=== PATIENT | male | born 1945 | race Caucasian/White ===

== ENCOUNTER → 2016-09-12 | Outpatient (CLI) | payer OTHER ==
[~2016-09-12] VITALS: Ht 193 cm; Wt 135.0 kg
[2016-09-12] VITALS (12 sets, daily range): BP systolic 92–118; BP diastolic 46–70; PULSE 61–69; O2SAT 93–97; Ht 193 cm; Wt 135.0 kg
[~2016-09-12] MED LIST: ACET-1311 PO; ALBU18002 INH; ASPCH81X PO; BENZOCAIN/TETRACA/BUTAM SPRAY 200 APPLN/20 GM SPRY ONE; CANNULA ONE; CIPR1TAB11 PO; CYM/30 PO; DAPT500I IV; DIPH25CA65 PO; FURO-85 PO; INSU1INJ2 SC; INSU3INJ3 SC; INSUINJ12 SC; LEVA1.255 NEB; LEVAAER2 INH; LVMI SQ; MAGN400T6 PO; MEPERIDINE HCL 50 MG/ML CARP ONE; METO50TA7 PO; MIDAZOLAM HCL 1 MG/ML 2ML VIAL ONE; NTRGSL/4 UT; PANT40TA PO; POLY335019 PO; POTA10TA PO; PRAV80TA2 PO; TAPE1TAB10 PO; TAPE50TA5 PO; VANC500I IV; WARF3TAB PO; WARF6TAB PO
--- NOTE | 2016-09-12 09:02 | History & Physical Bridge Note ---
H&P Re-Evaluation Bridge Note: I have examined the patient, reviewed the History & Physical and in the interval since the performance of the History & Physical I have noted the following changes of clinical significance: No changes noted
--- NOTE | 2016-09-12 09:03 | Procedure Note ---
Pre-Mod Sedation Assessment General Date of Moderate Sedation: Sep 12, 2016. Vital Signs: Vital Signs Past 12 Hours Date Time Temp Pulse Resp B/P Pulse Ox O2 Delivery O2 Flow Rate FiO2 09/12/16 07:27 67 16 105/58 95 Room Air Pre-Sedation Airway Assessment Oral Cavity: Dentures Able to Visualize Vocal Cords: Yes Short Thick Neck: Yes Hx of Sleep Apnea: No Smoking Status: Light Tobacco Smoker Mallampati Classification: Class II ASA Classification: Class II Procedure Planning Contraindications-for Mod Sed: None Yes Notes The planned sedation has been discussed with the patient and consent obtained. I have identified the patient, determined the appropriateness of sedation and have assessed the patient immediately prior to the procedure. All medicine(s) and interventions are by my order.
--- NOTE | 2016-09-12 09:07 | Discharge Instructions ---
Discharge Instructions Procedure Procedure Date: Sep 12, 2016. Reason for Visit: *Dr Casillas To Do*No Anesthesia,Aortic Valve Repl. Discharge Discharge Date: Sep 12, 2016. Discharge Diagnosis: Successful SADE Last Recorded Wt (Kilograms): 135.000 Anesthesia Post Anesthesia Instructions: If you have had General Anesthesia or IV Sedation: * Do not drive today. * Resume driving when surgeon permits. * Do not make important decisions or sign legal documents today. * Call surgeon for: 1. Temperature elevations greater than 101 degrees F. 2. Uncontrollable pain. 3. Excessive bleeding. 4. Persistent nausea and vomiting. 5. Medication intolerance (nausea, vomiting or rash). * For nausea and vomiting use only clear liquids such as: tea, soda, bouillon until nausea subsides, then gradually increase diet as tolerated. * If you have any concerns or questions, call your surgeon's office. If physician is unavailable and it is an emergency, call 911 or go to the nearest emergency room. Instructions Activity Recommendations: limitations as noted below Recommended Home Diet: resume previous diet Allergies: Coded Allergies: Clarithromycin (Verified Allergy, Severe, SHORTNESS OF BREATH, 07/11/16) Rash Hydrocodone (Verified Allergy, Severe, HIVES, RESP DISTRESS, 07/11/16) Macrolides (Verified Allergy, Severe, HIVES, RESP DISTRESS, 07/11/16) Penicillins (Verified Allergy, Severe, HIVES, RESP DISTRESS, 07/11/16) Tolerated Ceftriaxone Shellfish Allergy (Verified Allergy, Severe, HIVES, RESP DISTRESS, ) Tuberculin Purified Protein Derivat (Verified Allergy, Severe, HIVES, RESP DISTRESS, 07/11/16) Iodine (Verified Allergy, Unknown, HIVES, RESP DISTRESS, 07/11/16) Losartan (Verified Allergy, Unknown, HIVES, RESP DISTRESS, 07/11/16) Iodinated Diagnostic Agents (Verified Adverse Reaction, Severe, SHORTNESS OF BREATH, 07/11/16) X-RAY DYE Provider Instructions ACTIVITY RECOMMENDATIONS: Resume activities as tolerated with no limitations unless specified. __ No lifting over __ pounds for 24 hours. __ Do not engage in vigorous exercise, sexual activity, or sports for 24 hours. __ Do not drive or operate any motorized equipment for 24 hours. __ You may return to work/school tomorrow. __ Nothing to eat or drink until gag reflex returns. __ No HOT or WARM liquids for _4_ hours. __ Avoid "scratchy" foods such as potato chips or pretzels for 24 hours following procedure. SPECIAL CARE: If you experience coughing up or vomiting of blood, contact _Dr Casillas___ Follow Up Follow-up with: Dr Casillas as scheduled Courtney Cassel Recommendations: Call your doctor if: * Temperature above 101 degrees * Pain not relieved by pain medicine ordered * There is increased drainage or redness from any incision * You have any unanswered questions or concerns. Your Doctors Instructions noted above were prepared by provider Karson Casillas. Patient Signature Section: Patient Instructions Signature Page Michele Sandra Patient (or Guardian) Signature/Date: I have read and understand the instructions given to me by my caregivers. Caregiver/RN/Doctor Signature/Date: The above-named patient and/or guardian has received patient instructions on this date. + Original Patient Signature Page (only) stays with chart. Please make copy for patient.
--- NOTE | 2016-09-21 15:46 | TEE ---
*NOTICE TO RECEIVING [employer]Y This information is strictly Confidential and protected under [place] law. [place] law prohibits you from making any further disclosure of this information unless further disclosure is expressly permitted by the written consent of the person to whom it pertains or is authorized by law. A general authorization for the release of medical or other information is not sufficient for this purpose. Hospital accepts no responsibility if the information is made available to any other person, INCLUDING THE PATIENT. Interpretation Summary * Name: POOJA ROSS Study Date: 09/12/2016 08:43 AM BP: 105/58 mmHg * Patient Location: [facility] HR: 66 * : 1945 (M/d/yyyy) Gender: Male Height: 76 in * Age: 71 yrs Ethnicity: [place] Weight: 302 lb * Ordering Physician: Karson Casillas MD, [facility] * Performed By: Hallie Yu [facility] * * Reason For Study: Eval of Mitral Valve * BSA: 2.6 m2 * -- Conclusions -- * The left ventricle is normal in size. * There is mild concentric left ventricular hypertrophy. * There is mild global hypokinesis of the left ventricle. * Ejection Fraction = 45-50%. * The left atrium is mildly dilated. * There is a bioprosthetic aortic valve. * The gradient is normal for this prosthetic aortic valve. * Bioprosthetic leaflets are thin and move normally. * There is no aortic valvular vegetation. * There is a bioprosthetic mitral valve. * Bioprosthesis leaflets are thin and move normally. * There are no vegetations on this prosthetic mitral valve. * There is no mitral valve stenosis. * There is no mitral regurgitation noted. Procedure Details * SADE probe #3 was used during the procedure. Time Out: 833 Probe In: 841 Probe Out: 900 25 mg of Demerol was administered. * The study was performed in Cardiopulmonary Department. * Time out was conducted by the physician, nurse, and nuclear medicine pet ct technologist with positive identification of patient and procedure. * Informed consent for Transesophageal Echocardiogram was obtained prior to the procedure. * An intravenous line was placed. A topical anesthetic agent was used for oropharangeal anesthesia. A bite block was inserted. * Midazolam 4 mg administered for sedation. * The posterior oropharynx was anesthetized using a topical anesthetic spray. A bite guard was inserted. * The transesophageal probe was passed without difficulty. * The usual views were obtained; basal, mid-esophageal, transgastric and aortic views. * The patient tolerated the procedure well without evidence of orophangeal or esophageal trauma. * A 2D transesophageal echocardiogram with spectral and color flow Doppler was performed. * A 2D transesophageal echocardiogram with Doppler and color flow Doppler was performed. Left Ventricle * The left ventricle is normal in size. * There is mild concentric left ventricular hypertrophy. * Ejection Fraction = 45-50%. * There is mild global hypokinesis of the left ventricle. Right Ventricle * The right ventricular cavity size is normal (basal dimension <4.2 cm in right ventricular apical 4-chamber view). * The right ventricular systolic function is normal. Atria * The left atrium is mildly dilated. * No thrombus is detected in the left atrial appendage. * Right atrial size is normal. Mitral Valve * There is no mitral valve stenosis. * There is no mitral regurgitation noted. * There is a bioprosthetic mitral valve. * There are no vegetations on this prosthetic mitral valve. * Bioprosthesis leaflets are thin and move normally. Aortic Valve * There is no aortic valvular vegetation. * There is a bioprosthetic aortic valve. * Bioprosthetic leaflets are thin and move normally. * The gradient is normal for this prosthetic aortic valve. Great Vessels * The aortic root is normal size. * Mild atherosclerotic plaque(s) in the descending aorta. Right Ventricle * The right ventricular wall motion is normal.
== END | disposition home or self-care (01) ==
LOC: C.CPL 06:31
PROVIDERS: ATTEND Internal Medicine Cardiovascular Disease
DX: Z95.2 Presence of prosthetic heart valve (principal); Z95.4 Presence of other heart-valve replacement; R93.1 Abnormal findings on diagnostic imaging of heart and coronary circulation

== ENCOUNTER 2016-11-01 12:51 | Day surgery (SDC) | payer OTHER ==
[~2016-11-01] VITALS: Ht 193 cm; Wt 131.8 kg
[~2016-11-01 12:51] MED LIST changes: -ACET-1311 PO; -ALBU18002 INH; -BENZOCAIN/TETRACA/BUTAM SPRAY 200 APPLN/20 GM SPRY ONE; -CANNULA ONE; -CIPR1TAB11 PO; -DAPT500I IV; +DAPTOmycin IV 550 MG in SODIUM CHLORIDE 0.9% 50ML 50 ML IV SCH; -INSU3INJ3 SC; -LEVAAER2 INH; -LVMI SQ; -MEPERIDINE HCL 50 MG/ML CARP ONE; -MIDAZOLAM HCL 1 MG/ML 2ML VIAL ONE; -VANC500I IV; -WARF3TAB PO
[2016-11-01 13:05] VITALS: BP 131/88; PULSE 71; TEMP 36.5; O2SAT 95; Ht 193 cm; Wt 131.8 kg
[2016-11-01] MEDS ORDERED: WARF3TAB PO (13:19)
--- NOTE | 2016-11-01 15:30 | DIAGNOSTIC IMAGING REPORT ---
SINGLE VIEW CHEST CLINICAL HISTORY: PICC placement. Atrial fibrillation. FINDINGS: 2 AP, portable, upright chest radiographs are compared to study dated 10/28/2014. The examination is degraded by portable technique and patient rotation. A right PICC line has been placed. The tip of the catheter projects over the SVC. The patient is status post midline sternotomy. The heart is enlarged and there is atherosclerotic calcification of the thoracic aorta. The pulmonary vasculature is noncongested. Chronic interstitial thickening is unchanged. No airspace consolidation, large pleural effusion, or pneumothorax is seen. The skeletal structures are osteopenic. The bony thorax is grossly intact. IMPRESSION: 1. A right PICC line has been placed. The tip of the catheter projects over the SVC. 2. Cardiomegaly without radiographic evidence of congestive failure. 3. No airspace consolidation or large pleural effusion is identified. Electronically signed by: Livan Ballard M.D. 11/01/2016 3:28 PM Dictated Date/Time: 11/01/2016 3:27 PM
[2016-11-01 16:39] VITALS: BP 105/71; PULSE 71; TEMP 36.8; O2SAT 95
[2016-11-06] MEDS ORDERED: DAPT500I IV (13:56)
[2016-11-06] MEDS ORDERED: ALBU18002 INH (17:14)
[2016-11-06] MEDS ORDERED: PRAV80TA2 PO (17:15)
[2016-11-13] MEDS ORDERED: VANC500I IV (14:41)
[2016-11-13] MEDS ORDERED: INSU3INJ3 SC (17:08)
[2016-11-21] MEDS ORDERED: LVMI SQ (17:25)
[2016-11-21] MEDS ORDERED: ACET-1311 PO (17:32)
== END 2017-05-31 08:32 | disposition home or self-care (01) ==
LOC: C.MTU 12:51
PROVIDERS: ATTEND Internal Medicine Infectious Disease
DX: M86.9 Osteomyelitis, unspecified (principal)

== ENCOUNTER 2016-11-06 14:23 | Inpatient (IN) | payer OTHER ==
[~2016-11-06] VITALS: Ht 193 cm; Wt 133.6 kg
[~2016-11-06 14:23] MED LIST changes: +DAPT500I IV; -DAPTOmycin IV 550 MG in SODIUM CHLORIDE 0.9% 50ML 50 ML IV SCH; +WARF3TAB PO
[2016-11-06] MEDS ORDERED: ACETAMINOPHEN 325 MG TAB PO PRN (16:00)
[2016-11-06] MEDS ORDERED: ONDANSETRON INJ 2 MG/ML 2 ML VIAL IV PRN (16:00)
[2016-11-06 16:02] VITALS: BP 118/75; PULSE 78; O2SAT 94
[2016-11-06 16:44] LABS: BASO % 1.8 %; BASO ABS # 0.17 K/uL (0-0.2); EOS % 4.6 %; HEMATOCRIT 42.1 % (42-52); IG% 0.1 %; LYMPH % 37.5 %; LYMPH ABS # 3.56 K/uL (1.2-3.4); MEAN CELL VOLUME 91.9 fL (80-100); MEAN CORPUSCULAR HEMOGLOBIN 31.4 pg (25-34); MEAN PLATELET VOLUME 11.2 fL (7.4-10.4); MONO % 9.6 %; NEUT % 46.4 %; PLATELET COUNT 250 K/uL (130-400); RED BLOOD COUNT 4.58 M/uL (4.7-6.1)
[2016-11-06 16:46] LABS: COMPLETE YES; MEAN CORPUSCULAR HGB CONC 34.2 g/dl (32-36)
[2016-11-06 16:56] LABS: INR 3.1 (0.9-1.1); PARTIAL THROMBOPLASTIN RATIO 1.4; PROTHROMBIN TIME (PATIENT) 34.3 SECONDS (9.0-12.0)
[2016-11-06] MEDS ORDERED: DEXTROSE 50% 50 ML SYR IV PRN (17:00)
[2016-11-06] MEDS ORDERED: GLUCAGON FOR INJ 1 MG VIAL SQ PRN (17:00)
[2016-11-06] MEDS ORDERED: LEVALBUTEROL/IPRATROPIUM NEB INH PRN (17:00)
[2016-11-06] MEDS ORDERED: GLUCOSE 40% GEL 15 GM TUBE PO PRN (17:00)
[2016-11-06] MEDS ORDERED: GLUCOSE 10 TABS/TUBE PO PRN (17:00)
[2016-11-06] MEDS ORDERED: ALBU18002 INH (17:14)
[2016-11-06] MEDS ORDERED: PRAV80TA2 PO (17:15)
--- NOTE | 2016-11-06 17:15 | DIAGNOSTIC IMAGING REPORT ---
TWO VIEW CHEST CLINICAL HISTORY: Wheezing and dyspnea. FINDINGS: PA and lateral chest radiographs are compared to study dated 11/01/2016. A right PICC line is unchanged in position. The patient is status post midline sternotomy. The heart is enlarged and there is atherosclerotic calcification of the thoracic aorta. The pulmonary vasculature is noncongested. Chronic interstitial thickening is unchanged. Bibasilar airspace opacities are observed. No pleural effusion or pneumothorax is seen. The skeletal structures are osteopenic. The bony thorax is grossly intact. Degenerative change is seen throughout the thoracic spine. IMPRESSION: 1. Cardiomegaly without radiographic evidence of congestive failure. 2. There are bibasilar airspace opacities, likely representing atelectasis. Clinical correlation will be required. Electronically signed by: Livan Ballard M.D. 11/06/2016 5:13 PM Dictated Date/Time: 11/06/2016 5:12 PM
[2016-11-06] MEDS ORDERED: VANCOMYCIN CONSULT ACTIVE PRN (17:17)
[2016-11-06 17:24] LABS: BLOOD UREA NITROGEN 23 mg/dl (7-18); BUN/CREATININE RATIO 24.3 (10-20); CALCIUM 9.3 mg/dl (8.5-10.1); CARBON DIOXIDE 28 mmol/L (21-32); CHLORIDE 103 mmol/L (98-107); CREATININE 0.94 mg/dl (0.60-1.40); GLUCOSE 224 mg/dl (70-99); POTASSIUM 4.1 mmol/L (3.5-5.1); SODIUM 137 mmol/L (136-145)
[2016-11-06] MEDS ORDERED: VANCOMYCIN INJ 2,800 MG in SODIUM CHLORIDE 0.9% 500ML 500 ML IV STA (17:27)
[2016-11-06] MEDS ORDERED: IPRATROPIUM BROMIDE NEB SOLN 0.02% 2.5 ML VIAL INH PRN (17:30)
[2016-11-06] MEDS ORDERED: NITROGLYCERIN 0.4 MG SL PER TAB CHARGE UT PRN (17:30)
[2016-11-06] MEDS ORDERED: LEVALBUTEROL 0.63MG/3 ML NEB INH PRN (17:30)
[2016-11-06] MEDS: PATIENT'S HEIGHT AND/OR WEIGHT NEEDED SCH ×2 (17:30→18:00)
[2016-11-06] MEDS ORDERED: LEVOFLOXACIN / D5W 750 MG in PREMIXED IN D5W 150 ML IV SCH (18:00)
[2016-11-06] MEDS: METHYLPREDNISOLONE IV 40 MG in SYRINGE 0 ML IV SCH (18:49)
[2016-11-06 19:11] VITALS: BP 118/75; PULSE 78; TEMP 36.1; BMI 35.9
[2016-11-06 19:24] VITALS: PULSE 79; O2SAT 95
[2016-11-06] MEDS: IPRATROPIUM BROMIDE NEB SOLN 0.02% 2.5 ML VIAL INH SCH (19:24)
[2016-11-06] MEDS: LEVALBUTEROL 1.25MG/0.5ML NEB INH SCH (19:24)
[2016-11-06] MEDS: WARFARIN SOD 6 MG TAB PO SCH (20:14)
--- NOTE | 2016-11-06 20:34 | History and Physical ---
History & Physical Date & Time of Service: Nov 06, 2016 at 17:19 Chief Complaint: Osteomyelitis Of Right First Toe Primary Care Physician: Martha Cano M.D. History of Present Illness Source: patient, clinic records This is a 71 year old male with COPD, asthma, DM type 2, CAD, paroxysmal AF, h/ o endocarditis, history of aortic and mitral valve replacements, history of CVA , and other problems listed below who presents as a direct admission from Dr. Malhotra for right 1st toe osteomyelitis. Pt reports longstanding right great toe wound and is known to have osteomyelitis. Has had serosanguineous drainage. Has been following with wound care and ID. Wound culture 09/22/16 grew enterococcus faecalis. Pt has seen Dr. Ortega who plans to do 1st toe amputation. Pt had preoperative evaluation by Dr. Casillas who advised to proceed with surgery. Pt has appointment with PCP for preop eval which was not done yet. Pt was initially on oral abx then since last 11/01 has been on Daptomycin at home via PICC line. Pt reports since 11/01 has increased SOB, nausea, wheezing, generalized weakness, diffuse arthralgias. At baseline pt has EASTON but this is worse and occasionally occurs at rest. No significant improvement with home albuterol inhaler. He admits to cough with clear sputum for past 1-2 weeks. Has associated rhinorrhea and sweats. He reports occasional "twinges" in right chest since PICC line was placed. Has chronic occasional palpitations. PO intake is good. Has chronic rash which was evaluated by dermatology. Denies fever, chills, sore throat, abdominal pain, vomiting, diarrhea, constipation, dysuria, frequency, edema, weight gain. No sick contacts. Pt was seen by Dr. Malhotra at wound care clinic today and sent for direct admission for R 1st toe osteomyelitis with concern for possible daptomycin reaction. Last dose of daptomycin was this morning. Past Medical/Surgical History Medical Problems: (1) AAA (abdominal aortic aneurysm) Status: Chronic (2) Angina Status: Chronic (3) ARB intolerance Status: Chronic (4) Asthma, moderate Status: Chronic (5) Cerebrovascular disease, arteriosclerotic, post-stroke Status: Chronic (6) Chronic anticoagulation Status: Chronic (7) COPD, moderate Status: Chronic (8) Depression Status: Chronic (9) DM type 2 (diabetes mellitus, type 2) Status: Chronic (10) DVT (deep venous thrombosis) Status: Resolved (11) Dyslipidemia Status: Chronic (12) Heart disease Status: Chronic (13) History of endocarditis Status: Chronic (14) HTN (hypertension) Status: Chronic (15) LBBB (left bundle branch block) Status: Chronic (16) MA (myocardial infarction) Status: Chronic (17) Paroxysmal atrial fibrillation Status: Chronic (18) 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 Surgical Problems: (1) H/O angioplasty Permanent Comment: 1999 Angioplasty,single vessel [facility] Dr [place], [facility] Status: Chronic (2) H/O aortic valve replacement Permanent Comment: aortic valve replacement with prosthetic valve 06/15/2010 and 09/15/2014 Status: Chronic (3) H/O cervical spine surgery Status: Chronic (4) History of cataract surgery Status: Chronic (5) Hx of CABG Permanent Comment: 06/15/2010 CABG with 1 vein graft, [facility] Status: Chronic (6) S/P mitral valve replacement with bioprosthetic valve Permanent Comment: 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 Status: Chronic Family History FH: CAD (coronary artery disease) FATHER Social History Smoking Status: Current Every Day Smoker (1/2 ppd) Alcohol Use: none Marital Status: Housing status: lives with significant other Occupational Status: retired (retired nurse) Immunizations History of Influenza Vaccine: Yes Influenza Vaccine Date: Mar 16, 2011 History of Tetanus Vaccine?: Yes History of Pneumococcal: Unknown History of Hepatitis B Vaccine: YES - MANY YEARS AGO Multi-Drug Resistant Organisms History of MDRO: No Allergies Coded Allergies: Clarithromycin (Verified Allergy, Severe, SHORTNESS OF BREATH, 11/01/16) Rash Hydrocodone (Verified Allergy, Severe, HIVES, RESP DISTRESS, 11/01/16) Macrolides (Verified Allergy, Severe, HIVES, RESP DISTRESS, 11/01/16) Penicillins (Verified Allergy, Severe, HIVES, RESP DISTRESS, 11/01/16) Tolerated Ceftriaxone Shellfish Allergy (Verified Allergy, Severe, HIVES, RESP DISTRESS, 11/01/16 ) Tuberculin Purified Protein Derivat (Verified Allergy, Severe, HIVES, RESP DISTRESS, 11/01/16) Iodine (Verified Allergy, Unknown, HIVES, RESP DISTRESS, 11/01/16) Losartan (Verified Allergy, Unknown, HIVES, RESP DISTRESS, 11/01/16) Iodinated Diagnostic Agents (Verified Adverse Reaction, Severe, SHORTNESS OF BREATH, 11/01/16) X-RAY DYE Home Medications Scheduled Aspirin (Aspirin Chewable), 162 MG PO DAILY Daptomycin (Daptomycin), 550 MG IV DAILY Duloxetine HCl (Cymbalta), 30 MG PO DAILY Insulin Detemir (Levemir), 15 UNITS SC QPM Magnesium Oxide (Mag-Ox), 400 MG PO QAM Metoprolol Succ (Toprol Xl) (Toprol-Xl), 100 MG PO DAILY Pantoprazole (Protonix), 40 MG PO QAM Polyethylene Glycol 3350 (Miralax), 17 GM PO QAM Pravastatin Sodium (Pravastatin Sodium), 1 TAB PO HS Tapentadol Hcl (Nucynta Er), 100 MG PO BID Warfarin Sodium (Coumadin), 6 MG PO 6XWK Warfarin Sodium (Coumadin), 3 MG PO WK Scheduled PRN Albuterol Sulfate (Proair Respiclick), 2 PUFFS INH Q6 PRN for SOB/Wheezing Diphenhydramine Hcl (Benadryl Allergy), 25 MG PO HS PRN for Itching Furosemide (Lasix), 20 MG PO DAILY PRN for swelling Levalbuterol Hcl (Levalbuterol), 1.25 MG NEB Q6 PRN for SOB/Wheezing Nitroglycerin (Nitrostat), 0.4 MG UT UD PRN for Chest Pain Potassium Chloride (K-Tabs), 20 MEQ PO DAILY PRN for with Lasix Tapentadol Hcl (Nucynta), 50 MG PO Q8 PRN for Pain Review of Systems Ten point ROS performed with pertinent positives and negatives noted in HPI. Physical Exam Vital Signs Date Time Temp Pulse Resp B/P Pulse Ox O2 Delivery O2 Flow Rate FiO2 11/06/16 16:02 78 18 118/75 94 Room Air General Appearance: WD/WN, no apparent distress, + pertinent finding (very pleasant cooperative 71 year old male ) Head: normocephalic, atraumatic Eyes: normal inspection, PERRL, EOMI ENT: hearing grossly normal, pharynx normal, + pertinent finding (no sinus tenderness) Neck: supple, no JVD, trachea midline Respiratory/Chest: no respiratory distress, no accessory muscle use, + wheezing (moderate expiratory wheezing throughout) Cardiovascular: regular rate, rhythm, + pertinent finding (no murmur appreciated) Abdomen/GI: normal bowel sounds, non tender, soft Extremities/Musculoskelatal: no calf tenderness, normal capillary refill, no pedal edema Neurologic/Psych: alert, normal mood/affect, oriented x 3, + pertinent finding (strength 4/5 all extremities) Skin: + pertinent finding (right 1st toe ulceration with surrounding erythema of the toe. chronic round erythematous patches on extremities.) Diagnostics Laboratory Results Results Past 24 Hours Test 11/06/16 16:25 Range/Units White Blood Count 9.50 4.8-10.8 K/uL Red Blood Count 4.58 4.7-6.1 M/uL Hemoglobin 14.4 14.0-18.0 g/dL Hematocrit 42.1 42-52 % Mean Corpuscular Volume 91.9 80-100 fL Mean Corpuscular Hemoglobin 31.4 25-34 pg Mean Corpuscular Hemoglobin Concent 34.2 32-36 g/dl Platelet Count 250 130-400 K/uL Mean Platelet Volume 11.2 7.4-10.4 fL Neutrophils (%) (Auto) 46.4 % Lymphocytes (%) (Auto) 37.5 % Monocytes (%) (Auto) 9.6 % Eosinophils (%) (Auto) 4.6 % Basophils (%) (Auto) 1.8 % Neutrophils # (Auto) 4.41 1.4-6.5 K/uL Lymphocytes # (Auto) 3.56 1.2-3.4 K/uL Monocytes # (Auto) 0.91 0.11-0.59 K/uL Eosinophils # (Auto) 0.44 0-0.5 K/uL Basophils # (Auto) 0.17 0-0.2 K/uL RDW Standard Deviation 44.8 36.4-46.3 fL RDW Coefficient of Variation 13.4 11.5-14.5 % Immature Granulocyte % (Auto) 0.1 % Immature Granulocyte # (Auto) 0.01 0.00-0.02 K/uL Prothrombin Time 34.3 9.0-12.0 SECONDS Prothromb Time International Ratio 3.1 0.9-1.1 Activated Partial Thromboplast Time 36.6 21.0-31.0 SECONDS Partial Thromboplastin Ratio 1.4 Microbiology Results 11/06/16 Blood Culture, Received Pending 11/06/16 Blood Culture, Received Pending Diagnostic Radiology TWO VIEW CHEST CLINICAL HISTORY: Wheezing and dyspnea. FINDINGS: PA and lateral chest radiographs are compared to study dated 11/01/2016. A right PICC line is unchanged in position. The patient is status post midline sternotomy. The heart is enlarged and there is atherosclerotic calcification of the thoracic aorta. The pulmonary vasculature is noncongested. Chronic interstitial thickening is unchanged. Bibasilar airspace opacities are observed. No pleural effusion or pneumothorax is seen. The skeletal structures are osteopenic. The bony thorax is grossly intact. Degenerative change is seen throughout the thoracic spine. IMPRESSION: 1. Cardiomegaly without radiographic evidence of congestive failure. 2. There are bibasilar airspace opacities, likely representing atelectasis. Clinical correlation will be required. EKG NSR, LBBB- chronic, T wave inversions in I, II, aVL, aVF, V4-V6, no ST change. when compared to EKG in [facility] Jul 2016 V4-V5 inversions are new, otherwise appears similar. Impression Assessment and Plan COPD EXACERBATION Due to community acquired pneumonia Afebrile; no leukocytosis; saturating well on RA CXR- bibasilar opacities Check influenza PCR, sputum cx, blood cultures Will treat with Levaquin, IV Solu-Medrol, Xopenex-Atrovent nebs RIGHT 1ST TOE OSTEOMYELITIS/ DIABETIC ULCER Sent by Dr. Malhotra for direct admission Wound culture September 22 2016 grew enterococcus faecalis Seen by ortho Dr. Ortega- plan for amputation; has had preop evaluation by cardiology Dr. Casillas Has been on daptomycin via PICC line as outpatient -> ? reaction to daptomycin D/c daptomycin as per ID recommendation Start vancomycin Consult infectious disease Consult wound care nurse Surgery will be postponed until medically stable PAROXYSMAL ATRIAL FIBRILLATION Rate is controlled Continue metoprolol On Coumadin; INR 3.1 Continue Coumadin CAD Stable Continue aspirin, beta armen Resume statin which was held while on daptomycin HISTORY OF ENDOCARDITIS S/p emergent MVR and AVR September 2014 in [place] Echocardiogram done 08/22/2016 demonstrated moderate left hypertrophy, EF 50-55% . Normally functioning aortic and mitral valve bioprosthesis. There were concerns regarding possible mobile density of the atrial surface of the bioprosthetic mitral valve. Transesophageal echocardiogram revealed no vegetation or mass on 09/05/2016. DM TYPE 2 A1c 9.4 in 08/2016 Continue basal long acting insulin Novolog sliding scale DEPRESSION Continue Cymbalta CHRONIC NECK PAIN Continue Nucynta DVT PROPHYLAXIS On Coumadin CODE STATUS Full code per my discussion with the patient. Patient seen in collaboration with Dr. Hall. Please see her addendum. Level of Care Med/Surg Resuscitation Status FULL RESUSCITATION VTE Prophylaxis VTE Risk Assessment Done? Y/N: Yes Risk Level: Moderate Given or contraindicated: Warfarin (Coumadin) Note I have seen and examined the patient and discussed the case with the provider above. I agree with the assessment and plan. His chest pain is concerning but is very atypical and sporadic. He is describing a pinching that comes on 5 times a day along the R anterior chest for the last couple of days. Not made worse with exertion. No associated symptoms. He denies any limb swelling and blood clots (from PICC or elsewhere) are less likely with a therapeutic INR. He does have some wheezing in the RUL area, so unsure if this is connected to the pain. However, with a worsening of productive coughing, bibasilar opacities and shortness of breath, agree with abx (in addition to Vanc for osteo ) along with steroids and neb treatments. Will see how he responds to this treatment prior to consulting Dr. Ortega for the upcoming toe amputation. Appreciate ID input. DO Rafael
[2016-11-06] MEDS: TAPENTADOL ER 50 MG TABCR PO SCH (20:45)
[2016-11-06] MEDS: PRAVASTATIN SOD 40 MG TAB PO SCH (20:45)
[2016-11-06] MEDS: INSULIN ASPART 100 UNITS/ML 3 ML PEN SC SCH (20:57)
[2016-11-06] MEDS ORDERED: LEVALBUTEROL/IPRATROPIUM NEB INH SCH (21:00)
[2016-11-06] MEDS ORDERED: NON-FORMULARY MEDICATION (Insulin Detemir (Levemir) 15 UNITS) SC SCH (21:00)
--- NOTE | 2016-11-06 21:21 | Pharmacy Progress Note ---
Pharmacy Antibiotic Consult Date of Service: Nov 06, 2016. Pharmacy Dosing Scope Pharmacy is consulted to initiate Vancomycin IV dosing therapy, order appropriate labs and adjust drug dose/frequency. Subjective The patient is a 71 year old male admitted on Nov 06, 2016 at 15:32. Objective Height (Feet): 6 Height (Inches): 4.00 Weight (Kilograms): 133.600 Lab Results (24hrs): Laboratory Tests Test 11/06/16 16:25 BUN/Creatinine Ratio 24.3 Blood Urea Nitrogen 23 mg/dl Creatinine 0.94 mg/dl White Blood Count 9.50 K/uL Red Blood Count 4.58 M/uL Hemoglobin 14.4 g/dL Hematocrit 42.1 % Mean Corpuscular Volume 91.9 fL Mean Corpuscular Hemoglobin 31.4 pg Mean Corpuscular Hemoglobin Concent 34.2 g/dl Platelet Count 250 K/uL Mean Platelet Volume 11.2 fL Neutrophils (%) (Auto) 46.4 % Lymphocytes (%) (Auto) 37.5 % Monocytes (%) (Auto) 9.6 % Eosinophils (%) (Auto) 4.6 % Basophils (%) (Auto) 1.8 % Neutrophils # (Auto) 4.41 K/uL Lymphocytes # (Auto) 3.56 K/uL Monocytes # (Auto) 0.91 K/uL Eosinophils # (Auto) 0.44 K/uL Basophils # (Auto) 0.17 K/uL Micro Results: Item Value Date Time Blood Culture Received 11/06/16 1635 Blood Pending Blood Culture Received 11/06/16 1625 Blood Pending Assessment & Plan Assessment * 71 y/o M with history of chronic R great toe wound, was being followed by Dr. Malhotra and sent for direct admission. He was on oral antibiotics prior to being switched to IV Daptomycin on 11/01/16. His last dose of Dapto was this AM (11/06/16). They are planning amputation of his toe. * Renal function appears to be at baseline. Most recent sCr = 0.94 mg/dL with estimated CrCl >100 mL/min. Estimated pharmacokinetic parameters: * Ke ~0.087/hr, T1/2 ~7.9 hrs * With patient's obesity (BMI 35.9kg/m^2), he is at risk for Vancomycin drug accumulation, therefore will need to be cautious with dosing. However, given the severity of his infection, want to initially be more aggressive. He has history of MRSA. Unable to give him a loading dose >2800mg. Plan * Give Vancomycin 2800mg (~21mg/kg) IV x 1 as a loading dose * Initiate Vancomycin 1900mg (~14mg/kg) IV q10 * Goal Vancomycin trough 15-20 mcg/mL * Trough level ordered for 11/08 @ 0930, prior to the 4th dose and therefore should be reflective of steady state Pharmacy will continue to follow and will adjust dose/frequency as necessary. Thank you
[2016-11-06] MEDS ORDERED: INSULIN GLARGINE SOLOSTAR 100 UNITS/ML 3 ML PEN SC SCH (22:00)
[2016-11-06 22:21] LABS: INFLUENZA A PCR Neg for Influ A (NEG); INFLUENZA B PCR Neg for Influ B (NEG)
[2016-11-06 23:20] VITALS: BP 110/67; PULSE 89; TEMP 36.8; O2SAT 93
[2016-11-07] VITALS (9 sets, daily range): BP systolic 100–127; BP diastolic 62–71; PULSE 86–98; TEMP 36.5–36.8; O2SAT 92–95; BMI 35.9
[2016-11-07] MEDS ORDERED: NURSING DECISION MEDICATION ORDER SCH
[2016-11-07] MEDS: METHYLPREDNISOLONE IV 40 MG in SYRINGE 0 ML IV SCH ×2 (02:06→12:45)
[2016-11-07] MEDS: IPRATROPIUM BROMIDE NEB SOLN 0.02% 2.5 ML VIAL INH SCH ×4 (02:15→19:03)
[2016-11-07] MEDS: LEVALBUTEROL 1.25MG/0.5ML NEB INH SCH ×4 (02:15→19:03)
[2016-11-07] MEDS: VANCOMYCIN INJ 1,900 MG in SODIUM CHLORIDE 0.9% 500ML 500 ML IV SCH ×3 (04:04→23:59)
[2016-11-07 05:40] LABS: HEMATOCRIT 39.7 % (42-52); MEAN CELL VOLUME 92.1 fL (80-100); MEAN CORPUSCULAR HEMOGLOBIN 30.9 pg (25-34); MEAN CORPUSCULAR HGB CONC 33.5 g/dl (32-36); MEAN PLATELET VOLUME 11.3 fL (7.4-10.4); PLATELET COUNT 205 K/uL (130-400); RED BLOOD COUNT 4.31 M/uL (4.7-6.1); WHITE BLOOD COUNT 7.66 K/uL (4.8-10.8)
[2016-11-07 05:54] LABS: INR 3.1 (0.9-1.1); PROTHROMBIN TIME (PATIENT) 34.6 SECONDS (9.0-12.0)
[2016-11-07 06:19] LABS: BUN/CREATININE RATIO 20.6 (10-20); CALCIUM 8.9 mg/dl (8.5-10.1); POTASSIUM 4.2 mmol/L (3.5-5.1)
[2016-11-07 06:30] LABS: BETA-HYDROXYBUTYRATE 4.15 mg/dL (0.2-2.81)
[2016-11-07] MEDS ORDERED: ASPIRIN 81 MG ECTAB PO SCH (08:00)
[2016-11-07] MEDS ORDERED: PHARMACY GLYCEMIC MGMT CONSULT PRN (08:30)
[2016-11-07] MEDS: MAGNESIUM OXIDE 400 MG TAB PO SCH (08:45)
[2016-11-07] MEDS: POLYETHYLENE (MIRALAX) 17 GM PACK PO SCH (08:46)
[2016-11-07] MEDS: METOPROLOL SUCC 50MG EXT REL TAB PO SCH (08:46)
[2016-11-07] MEDS: PANTOprazole SOD 40 MG TAB PO SCH (08:46)
[2016-11-07] MEDS: DULOXETINE (CYMBALTA) 30 MG CAP PO SCH (08:46)
[2016-11-07] MEDS: INSULIN ASPART 100 UNITS/ML 3 ML PEN SC SCH ×4 (09:08→21:45)
[2016-11-07] MEDS: INSULIN GLARGINE SOLOSTAR 100 UNITS/ML 3 ML PEN SC SCH ×2 (09:09→21:46)
[2016-11-07] MEDS: TAPENTADOL ER 50 MG TABCR PO SCH ×2 (09:17→21:47)
--- NOTE | 2016-11-07 11:45 | Progress Note ---
Progress Note Date of Service Nov 07, 2016. Progress Note ID Consult Dictated #[id number] A/P: 1. R foot infection - E. faecalis -continue vanco for now -suggest ortho eval to schedule surgery -Will follow, thank you
--- NOTE | 2016-11-07 12:10 | INFECT. DISEASE CONSULTATION ---
DATE OF CONSULTATION: 11/07/2016 DATE OF CONSULTATION: 11/07/2016. REQUESTING PHYSICIAN: Dr. Hall. HISTORY OF PRESENT ILLNESS: This is a 71-year-old gentleman who was admitted yesterday after being evaluated by wound care and infectious diseases. One week ago he was placed on daptomycin for previous right toe culture which grew Enterococcus faecalis. He does have penicillin allergy and was unable to take Zyvox secondary to being on an SSRI. He was placed on daptomycin for once daily dosing and he began last Sunday. He states throughout the week he has had worsening fatigue, muscle pains, muscle fatigue and nausea. He denies any vomiting. He also felt he was somewhat more dizzy. At the wound care center yesterday he states the night before he had a sleep upright because he had worsening wheezing and shortness of breath which felt like congestive heart failure. For this reason, he was admitted to the hospital to rule out any reaction to daptomycin. His CK was normal at 103. His chest x-ray was positive only for atelectasis. His laboratory studies were otherwise within normal limits. He has been afebrile since admission. He was placed on vancomycin upon admission yesterday and is tolerating this well. On my examination today, he is out of bed to chair and states overall he is feeling better but still has some unsteady gait. He does not have any drainage from his toe and this improved significantly while on daptomycin. He does have a history of endocarditis. He is planning to have a toe amputation by orthopedic surgery, however this has been held up by inability to get clearance from his primary care physician until 11/25/2015. He has already received cardiac clearance. He is requesting that he undergo surgery while hospitalized. On my examination today, he denies any fevers, chills, cough, shortness of breath, nausea, vomiting, diarrhea or abdominal pain. All remaining review of systems are reviewed and are negative. PAST MEDICAL HISTORY: Significant for AAA, asthma, coronary artery disease, CVA, COPD, depression, type 2 diabetes, DVT with chronic anticoagulation, dyslipidemia, history of endocarditis, hypertension, left bundle branch block, coronary artery disease with NE, Afib. PAST SURGICAL HISTORY: Significant for angioplasty, aortic valve replacement, most recently in 2014, spine surgery, cataract surgery, CABG, mitral valve replacement. FAMILY HISTORY: Noncontributory. SOCIAL HISTORY: Significant for tobacco use. He is and lives with his . ALLERGIES: HE IS ALLERGIC TO CLARITHROMYCIN, HYDROCODONE, MACROLIDES, PENICILLINS, IODINE, LOSARTAN. CURRENT MEDICATIONS: Include insulin, Coumadin, Lantus, Ecotrin, Cymbalta, magnesium, Toprol-XL, Protonix, MiraLax, vancomycin, subQ heparin, Pravachol, Atrovent, Xopenex, Nucynta, Solu-Medrol, levofloxacin, Atrovent, Xopenex, Benadryl, Zofran and Tylenol. PHYSICAL EXAMINATION: VITAL SIGNS: He is afebrile and has been since admission, pulse 98, respiratory rate 20, blood pressure is 116/70, oxygen saturation is 92% on room air. GENERAL: He is awake, alert and oriented x3. She is in no acute distress. HEAD, EYES, EARS, NOSE, AND THROAT: Mucous membranes are moist. Extraocular muscles are intact. HEART: Regular. LUNGS: Clear. ABDOMEN: Soft. There is no edema bilaterally. SKIN: Without rash. PICC line is in place in the right upper extremity. LABORATORY STUDIES: CBC today reveals a white blood cell count of 7.6, hemoglobin 13.3 and platelets are 205. Chemistry panel reveals a sodium of 136, potassium 4.2, chloride 102, bicarbonate 25, BUN 21, creatinine 1, glucose is 283. Flu swab was negative. Blood cultures are pending. Chest x-ray showed atelectasis. ASSESSMENT AND PLAN: Osteomyelitis of the right first toe with enterococcus. He will continue on vancomycin and I will discontinue his Levaquin. An orthopedic evaluation has not been requested to date. He is requesting to be evaluated by orthopedic surgery so he can have a surgery date scheduled. Hopefully, if his surgery can be done this will be a curative procedure and he will not need to go home with intravenous antibiotics. We will follow along with you. Thank you for this consultation.
--- NOTE | 2016-11-07 13:36 | Progress Note ---
Medicine Progress Note Date & Time of Visit: Nov 07, 2016 at 13:00. Subjective Pt was seen and examined Sitting in chair with no distress watching TV Pt said that he feels much better compare to yesterday his sob improved. His finger continue to feel numb Denies any chest pain, palpitation, dizziness. Objective Last 8 Hrs Date Time Temp Pulse Resp B/P Pulse Ox O2 Delivery O2 Flow Rate FiO2 11/07/16 08:00 92 Room Air 11/07/16 07:36 36.5 98 20 116/70 92 Room Air 11/07/16 07:01 98 16 92 Room Air Physical Exam: General- No acute distress Head- atraumatic Eyes- PERRL, EOMI ENT- oropharynx clear Neck- supple, no JVD Lungs- coarse BS Heart- regular rhythm; +systolic murmur Abdomen- normal bowel sounds, soft Extremities-no calf tenderness, osteomyelitis of Right big toe Neuro- alert, oriented x 3; PERRL, EOMI; no facial palsy; no dysarthria Skin- warm & dry Laboratory Results: Last 24 Hours Test 11/06/16 16:25 11/06/16 20:15 11/06/16 20:20 11/07/16 01:25 White Blood Count 9.50 K/uL Red Blood Count 4.58 M/uL Hemoglobin 14.4 g/dL Hematocrit 42.1 % Mean Corpuscular Volume 91.9 fL Mean Corpuscular Hemoglobin 31.4 pg Mean Corpuscular Hemoglobin Concent 34.2 g/dl Platelet Count 250 K/uL Mean Platelet Volume 11.2 fL Neutrophils (%) (Auto) 46.4 % Lymphocytes (%) (Auto) 37.5 % Monocytes (%) (Auto) 9.6 % Eosinophils (%) (Auto) 4.6 % Basophils (%) (Auto) 1.8 % Neutrophils # (Auto) 4.41 K/uL Lymphocytes # (Auto) 3.56 K/uL Monocytes # (Auto) 0.91 K/uL Eosinophils # (Auto) 0.44 K/uL Basophils # (Auto) 0.17 K/uL RDW Standard Deviation 44.8 fL RDW Coefficient of Variation 13.4 % Immature Granulocyte % (Auto) 0.1 % Immature Granulocyte # (Auto) 0.01 K/uL Prothrombin Time 34.3 SECONDS Prothromb Time International Ratio 3.1 Activated Partial Thromboplast Time 36.6 SECONDS Partial Thromboplastin Ratio 1.4 Sodium Level 137 mmol/L Potassium Level 4.1 mmol/L Chloride Level 103 mmol/L Carbon Dioxide Level 28 mmol/L Anion Gap 6.0 mmol/L Blood Urea Nitrogen 23 mg/dl Creatinine 0.94 mg/dl Estimated GFR () 95.5 Estimated GFR (Non- 82.4 BUN/Creatinine Ratio 24.3 Random Glucose 224 mg/dl Calcium Level 9.3 mg/dl Total Creatine Kinase 103 U/L Influenza Type A (RT-PCR) Neg for Influ A Influenza Type B (RT-PCR) Neg for Influ B Bedside Glucose 227 mg/dl 274 mg/dl Test 11/07/16 05:30 11/07/16 07:51 11/07/16 11:07 White Blood Count 7.66 K/uL Red Blood Count 4.31 M/uL Hemoglobin 13.3 g/dL Hematocrit 39.7 % Mean Corpuscular Volume 92.1 fL Mean Corpuscular Hemoglobin 30.9 pg Mean Corpuscular Hemoglobin Concent 33.5 g/dl RDW Standard Deviation 45.3 fL RDW Coefficient of Variation 13.3 % Platelet Count 205 K/uL Mean Platelet Volume 11.3 fL Prothrombin Time 34.6 SECONDS Prothromb Time International Ratio 3.1 Sodium Level 136 mmol/L Potassium Level 4.2 mmol/L Chloride Level 102 mmol/L Carbon Dioxide Level 25 mmol/L Anion Gap 9.0 mmol/L Blood Urea Nitrogen 21 mg/dl Creatinine 1.00 mg/dl Est Creatinine Clear Calc Drug Dose 104.0 ml/min Estimated GFR () 88.6 Estimated GFR (Non- 76.5 BUN/Creatinine Ratio 20.6 Random Glucose 306 mg/dl Calcium Level 8.9 mg/dl Beta-Hydroxybutyric Acid 4.15 mg/dL Bedside Glucose 283 mg/dl 300 mg/dl Date/Time Source Procedure Growth Status 11/06/16 16:35 Blood Blood Culture Pending Received 11/06/16 16:25 Blood Blood Culture Pending Received Assessment & Plan SHORTNESS OF BREATH Possible related to COPD vs viral URI or bronchitis Afebrile; no leukocytosis; saturating well on RA CXR showed bibasilar airspace opacities, likely representing atelectasis Influenza PCR negative sputum cx, blood cultures pending Levaquin D/C by ID Continue Xopenex-Atrovent nebs RIGHT 1ST TOE OSTEOMYELITIS/ DIABETIC ULCER Sent by Dr. Malhotra for direct admission Wound culture September 22 2016 grew enterococcus faecalis Seen by ortho Dr. Ortega- plan for amputation; Was cleared by cardiology Dr. Casillas for surgery Has been on daptomycin via PICC line as outpatient -> ? reaction to daptomycin D/c daptomycin as per ID recommendation Continue IV vancomycin as per ID Continue wound care Consult placed for ortho for possible amputation of the right big toe. PAROXYSMAL ATRIAL FIBRILLATION Rate is controlled Continue metoprolol On Coumadin; INR 3.1 will hold coumadin today for possible surgery CAD Stable Continue beta armen Will hold Aspirin tomorrow dose for possible surgery Resume statin which was held while on daptomycin HISTORY OF ENDOCARDITIS S/p emergent MVR and AVR September 2014 in [place] Echo done on 09/21/16: * The left ventricle is normal in size. * There is mild concentric left ventricular hypertrophy. * There is mild global hypokinesis of the left ventricle. * Ejection Fraction = 45-50%. * The left atrium is mildly dilated. * There is a bioprosthetic aortic valve. * The gradient is normal for this prosthetic aortic valve. * Bioprosthetic leaflets are thin and move normally. * There is no aortic valvular vegetation. * There is a bioprosthetic mitral valve. * Bioprosthesis leaflets are thin and move normally. * There are no vegetations on this prosthetic mitral valve. * There is no mitral valve stenosis. * There is no mitral regurgitation noted. DM TYPE 2 A1c 9.4 in 08/2016 Continue basal long acting insulin Novolog sliding scale DEPRESSION Continue Cymbalta CHRONIC NECK PAIN Continue Nucynta DVT PROPHYLAXIS On Coumadin with INR 3.1 CODE STATUS Full code Current Inpatient Medications: Current Inpatient Medications Medications (Trade) Dose Ordered Sig/Eder Route Start Time Stop Time Status Last Admin Dose Admin Acetaminophen (Tylenol Tab) 650 mg Q4H PRN PO 11/06/16 16:00 12/06/16 15:59 Ondansetron HCl (Zofran Inj) 4 mg Q6H PRN IV 11/06/16 16:00 12/06/16 15:59 Vancomycin HCl (Consult) 1 ea UD PRN N/A 11/06/16 17:17 12/06/16 17:16 Insulin Aspart (novoLOG ASPART) SLIDING SCALE If C... ACHS SC 11/06/16 22:00 12/06/16 21:59 11/07/16 09:08 20 UNITS Glucose (Glucose 40% Gel) 15-30 GRAMS 15 GRAMS... UD PRN PO 11/06/16 17:00 12/06/16 16:59 Glucose (Glucose Chew Tab) 4-8 Tablets 4 Tabl... UD PRN PO 11/06/16 17:00 12/06/16 16:59 Dextrose (Dextrose 50% 50ML Syringe) 25-50ML OF 50% DW IV FOR... UD PRN IV 11/06/16 17:00 12/06/16 16:59 Glucagon 1 mg 1 mg UD PRN SQ 11/06/16 17:00 12/06/16 16:59 Methylprednisolone Sodium Succinate 40 mg/Syringe 0.64 ml @ 1.5 mls/min Q8H IV 11/06/16 18:00 12/06/16 17:59 11/07/16 02:06 1.5 MLS/MIN Levofloxacin/Prmx (Levaquin / D5W/ Premixed D5W) 150 ml @ 100 mls/hr DAILY@1800 IV 11/06/16 18:00 11/13/16 17:59 11/06/16 18:49 100 MLS/HR Ipratropium [place] (Atrovent 0.02% 0.5MG/2.5ML Neb) 0.5 mg Q6R INH 11/06/16 21:00 12/06/16 20:59 11/07/16 07:00 0.5 MG Levalbuterol (Xopenex 1.25MG/ 0.5ML Neb) 1.25 mg Q6R INH 11/06/16 21:00 12/06/16 20:59 11/07/16 07:01 1.25 MG Ipratropium [place] (Atrovent 0.02% 0.5MG/2.5ML Neb) 0.5 mg Q2H PRN INH 11/06/16 17:30 12/06/16 17:29 Levalbuterol (Xopenex 0.63 Mg/ 3 Ml Neb) 0.63 mg Q2H PRN INH 11/06/16 17:30 12/06/16 17:29 Aspirin (Ecotrin Tab) 162 mg QAM PO 11/07/16 08:00 12/07/16 07:59 11/07/16 08:46 162 MG Diphenhydramine HCl (Benadryl Cap) 25 mg HS PRN PO 11/06/16 17:30 12/06/16 17:29 Duloxetine HCl (Cymbalta Cap) 30 mg DAILY PO 11/07/16 08:00 12/07/16 07:59 11/07/16 08:46 30 MG Magnesium Oxide (Mag-Ox Tab) 400 mg QAM PO 11/07/16 08:00 12/07/16 07:59 11/07/16 08:45 400 MG Metoprolol Succinate (Toprol Xl Tab) 100 mg DAILY PO 11/07/16 08:00 12/07/16 07:59 11/07/16 08:46 100 MG Nitroglycerin (Nitrostat Tab) 0.4 mg UD PRN UT 11/06/16 17:30 12/06/16 17:29 Pantoprazole Sodium (Protonix Tab) 40 mg QAM PO 11/07/16 08:00 12/07/16 07:59 11/07/16 08:46 40 MG Tapentadol (Nucynta Tab) 50 mg Q8 PRN PO 11/06/16 17:30 11/20/16 17:29 Warfarin Sodium (Coumadin Tab) 3 mg Tu@1600 PO 11/07/16 16:00 12/07/16 15:59 Warfarin Sodium (Coumadin Tab) 6 mg SuMoWeThFrSa@1600 PO 11/06/16 17:30 12/06/16 17:29 11/06/16 20:14 6 MG Polyethylene (Miralax Powder Packet) 17 gm QAM PO 11/07/16 08:00 12/07/16 07:59 11/07/16 08:46 17 GM Tapentadol (Nucynta Er Tab) 100 mg BID PO 11/06/16 20:00 12/06/16 19:59 11/07/16 09:17 100 MG Pravastatin Sodium 80 mg 80 mg HS PO 11/06/16 22:00 12/06/16 21:59 11/06/16 20:45 80 MG Vancomycin HCl/ Sodium Chloride (Vancomycin Inj/ Nss 500ml) 538 ml @ 200 mls/hr Q10H IV 11/07/16 04:00 12/19/16 03:59 11/07/16 04:04 200 MLS/HR Heparin Sodium (Porcine) (Heparin 10 Unit/ ml 5 ml Flush) 5 ml PRN PRN FLUSH 11/07/16 00:30 12/07/16 00:29 11/07/16 07:55 5 ML Miscellaneous Information (Consult Glycemic Management Pharmacy) 1 ea UD PRN N/A 11/07/16 08:30 12/07/16 08:29 Insulin Glargine (Lantus Solostar Pen) SEE PROTOCOL TEXT BID SC 11/07/16 09:00 12/07/16 08:59 11/07/16 09:09 20 UNIT Insulin Aspart (novoLOG ASPART) SLIDING SCALE If C... 0000,0400 SC 11/08/16 00:00 12/08/16 00:00
--- NOTE | 2016-11-07 13:51 | Pharmacy Progress Note ---
Glycemic Control Intl Consult Date of Service Nov 07, 2016. Scope Glycemic Pharmacist consulted by Dr Hdz on 11/07/16 for glycemic control and to write orders per [facility] inpatient glycemic control protocol Objective Weight (Kilograms): 133.600 Accuchecks BSG (last 24hrs): Test 11/06/16 16:25 11/06/16 20:20 11/07/16 01:25 11/07/16 05:30 Random Glucose 224 mg/dl (70-99) 306 mg/dl (70-99) Bedside Glucose 227 mg/dl (70-99) 274 mg/dl (70-99) Test 11/07/16 07:51 11/07/16 11:07 Bedside Glucose 283 mg/dl (70-99) 300 mg/dl (70-99) Laboratory Data (last 24hrs) Test 11/06/16 16:25 11/07/16 05:30 Anion Gap 6.0 mmol/L 9.0 mmol/L BUN/Creatinine Ratio 24.3 20.6 Blood Urea Nitrogen 23 mg/dl 21 mg/dl Creatinine 0.94 mg/dl 1.00 mg/dl Potassium Level 4.1 mmol/L 4.2 mmol/L Sodium Level 137 mmol/L 136 mmol/L White Blood Count 9.50 K/uL 7.66 K/uL Red Blood Count 4.58 M/uL Hemoglobin 14.4 g/dL Hematocrit 42.1 % Mean Corpuscular Volume 91.9 fL Mean Corpuscular Hemoglobin 31.4 pg Mean Corpuscular Hemoglobin Concent 34.2 g/dl Platelet Count 250 K/uL Mean Platelet Volume 11.2 fL Neutrophils (%) (Auto) 46.4 % Lymphocytes (%) (Auto) 37.5 % Monocytes (%) (Auto) 9.6 % Eosinophils (%) (Auto) 4.6 % Basophils (%) (Auto) 1.8 % Neutrophils # (Auto) 4.41 K/uL Lymphocytes # (Auto) 3.56 K/uL Monocytes # (Auto) 0.91 K/uL Eosinophils # (Auto) 0.44 K/uL Basophils # (Auto) 0.17 K/uL Recent Pertinent Medications Outpatient Anti-diabetic Regimen: * Levemir 15 units SQ q PM * A1c = 9.7 % 08/30/16 The patient is currently receiving: * Basal insulin: Lantus 15 units every 24 hours, dosed in the evening * Correctional Insulin: NovoLog Correction per scale AC/HS Goal Range: Low 100 mg/dL - High 140 mg/dL Correction Factor: 30 mg/dL/unit * Prandial insulin: Per carb ratio of 1 unit per 11 grams CHO consumed Risk Factors for Insulin Resistance: * Steroids: Solu-Medrol 40mg IV every 8 hours --> Prednisone 40mg PO daily * Infection: osteomyelitis being treated with vancomycin IV (levofloxacin discontinued today) * Diet: taking PO Assessment & Plan ASSESSMENT: Initial: * ADA & AACE recommend a goal blood sugar range 140-180 mg/dl for the majority of critically ill & non-critically ill patients. However, more stringent targets may be selected in individual cases. Will utilize more stringent goal of 100-140mg/dl based on patient age & comorbidities. Additionally, tighter glycemic control is warranted to facilitate wound/infection healing. * 71 y/o type 2 diabetic with an elevated A1c and osteomyelitis * BSG on admission elevated before steroids started * ATC steroids started and BSGs >300mg/dL * Historically, Mr. Sandra is known to the glycemic consult service and has tolerated >100 units of insulin per day 11/07/16 * Acute hyperglycemic event currently, elevated BHA * Increase basal/bolus insulin based on patient weight and a stress of 2-3 * add Accu-checks overnight * If hyperglycemia continues despite these aggressive changes * consider IV insulin boluses (0.05u/kg) * consider IV insulin infusion * consider further tightening of basal and bolus dosing using a stress of 3 PLAN FOR INPATIENT GLYCEMIC CONTROL: * Basal insulin * Increase Lantus to 20 units SQ BID * uses Levemir at home - is this lasting a full 24 hours? * Bolus insulin * Continue NovoLog AC and HS - add overnight Accu-checks at 00:00 and 04:00 * Tighten correction factor to 12mg/dL/unit * Tighten carb ratio to 1 unit per 5g of CHO consumed * Goal range: 100-140mg/dL to facilitate infection healing * A1c ordered with AM labs * add to discharge instructions RECOMMENDATIONS FOR DISCHARGE: * Awaited * Please note that the plan above was derived based on current level of insulin resistance and hospital stress. These recommendations are appropriate for inpatient admission only. Plan of care upon discharge will need to be reassessed to avoid potential outpatient hypo/hyperglycemia. Thank you.
[2016-11-07] MEDS ORDERED: WARFARIN SOD 3 MG TAB PO SCH (16:00)
--- NOTE | 2016-11-07 19:16 | ORTHOPEDIC CONSULTATION ---
DATE OF CONSULTATION: 11/07/2016 This is a 71-year-old gentleman seen at the request of Dr. Hall, Dr. Cano and Dr. Malhotra for osteomyelitis of right great toe with multiple clawtoe deformities. The patient was admitted on 11/06/2016 for diagnosis of right great toe osteomyelitis and other medical comorbidities. Had serosanguineous drainage. He has been dealing with the foot with wound care clinic and infectious disease. He had recent wound culture on 09/22/2016, which grew Enterococcus faecalis. He had been seen in my clinic previously and was scheduled for partial amputation of the great toe with correction of clawtoe deformities; however, was pending medical clearance. He had been evaluated by Dr. Casillas. He was advised to proceed with surgery. He had an appointment with his primary care physician for preoperative evaluation which is pending. The patient has been on daptomycin via PICC line and since November 01, he had increased shortness of breath, nausea, wheezing, generalized weakness, diffuse arthralgias and was generally just feeling poorly. The patient had worsening difficulty with dyspnea and was admitted to the hospital. There was concern regarding daptomycin reaction, thus necessitating the more emergent care and treatment of the patient. PAST MEDICAL HISTORY: Osteomyelitis of right great toe, abdominal aortic aneurysm, angina, moderate asthma, arteriosclerotic post stroke cerebrovascular disease, chronic anticoagulation, moderate COPD, depression, type 2 diabetes mellitus, deep venous thrombosis, dyslipidemia, heart disease, history of endocarditis, hypertension, left bundle branch block, myocardial infarction, paroxysmal atrial fibrillation, tachybrady syndrome. PAST SURGICAL HISTORY: History of angioplasty, history of aortic valve replacement prosthetic, history of cervical spine surgery, history of cataract surgery, history of coronary artery bypass graft, 1 vein graft, status post mitral valve replacement with bioprosthetic valve. ALLERGIES: CLARITHROMYCIN, HYDROCODONE, MACROLIDES, PENICILLINS, SHELLFISH, TUBERCULIN, PROTEIN, IODINE, LOSARTAN, IODINATED DIAGNOSTIC AGENTS. MEDICATIONS: Aspirin 162 mg daily, daptomycin 550 mg daily, Cymbalta 30 mg p.o. daily, Levemir 15 units subQ q.p.m., Mag-Ox 400 mg p.o. q.a.m., Toprol-XL 100 mg p.o. daily, Protonix 40 mg p.o. q.a.m., MiraLax 17 g p.o. q.a.m., pravastatin 1 tab p.o. at bedtime, Nucynta ER 100 mg p.o. b.i.d., Coumadin 6 mg p.o. 6 times per week, Coumadin 3 mg p.o. weekly, ProAir RespiClick 3 puffs inhaled q. 6 hours p.r.n. shortness of breath or wheezing, Benadryl Allergy 25 mg p.o. at bedtime p.r.n., Lasix 20 mg p.o. q. daily p.r.n., levalbuterol 1.25 mg neb q. 6 p.r.n. shortness of breath or wheezing, Nitrostat 0.4 mg under the tongue daily p.r.n. for chest pain, K-Tab 20 mEq p.o. daily p.r.n. with Lasix, Nucynta 50 mg p.o. q. 8 hours p.r.n. pain. SOCIAL HISTORY: Continues to smoke half pack a day. Denies alcohol or drug use. He is and lives with his . He is retired. PHYSICAL EXAMINATION: GENERAL: This is a 71-year-old gentleman who is sitting supine in his hospital room bed with his present. He is eating his dinner. Alert and orient x3. Speech clear and fluent. Affect is appropriate. EXTREMITIES: Examination of the bilateral feet demonstrates multiple clawtoe deformities of bilateral feet. He has a chronic ulceration of the plantar medial aspect of his right great toe. Clawtoe deformities fixed of first, second, third, fourth and fifth toes. There is no tenderness to palpation. He has stocking distribution neuropathy with limited light touch sensation. Feet are warm. Scant hair growth in bilateral feet. Dorsalis pedis and posterior tibial pulses are palpable. He has macular appearing rashes in bilateral upper and lower extremities. There is no exudate or transudate associated with the rashes. There is noted to be a scant amount of dried crusted drainage around the right great toe distal tip. No exposed bone. He has onychomycosis of the nails in bilateral feet and limited mobility of the toes in bilateral feet. There is erythema around the distal tip of the right great toe with edema, no obvious purulence. Erythema extends to the interphalangeal joint of the right great toe. Radiographs reviewed, demonstrate multiple clawtoes. Laboratories reviewed. IMPRESSION: 1. Osteomyelitis, right great toe. Multiple fixed clawtoe deformities of the right foot, of the second, third, fourth and fifth toes. Cellulitis of the right great toe improving. 2. Multiple medical comorbidities. Stable and improving during hospital course. RECOMMENDATIONS: At this time, I would recommend partial amputation of the right great toe, possible complete amputation of the right great toe. Also, recommend flexor tenotomies with manipulation under anesthesia of the second, third, fourth and fifth toes. Recommend against any type of hardware or stabilization instrumentation for the lesser toes due to the presence of infection in the great toe. This can be performed in an inpatient setting as the patient is currently being cared for during this hospital stay. I would be glad to add him on to my schedule for a planned operative day on Sunday. Thank you for the opportunity to consult in the care of this patient.
[2016-11-07] MEDS: PRAVASTATIN SOD 40 MG TAB PO SCH (21:47)
[2016-11-08] VITALS (8 sets, daily range): BP systolic 119–126; BP diastolic 71–75; PULSE 71–88; TEMP 36.5–36.7; O2SAT 92–94; Ht 193 cm; Wt 133.6 kg
[2016-11-08] MEDS: INSULIN ASPART 100 UNITS/ML 3 ML PEN SC SCH ×7 (00:07→23:48)
[2016-11-08] MEDS: IPRATROPIUM BROMIDE NEB SOLN 0.02% 2.5 ML VIAL INH SCH ×4 (02:12→19:33)
[2016-11-08] MEDS: LEVALBUTEROL 1.25MG/0.5ML NEB INH SCH ×4 (02:12→19:33)
[2016-11-08 06:14] LABS: HEMATOCRIT 37.7 % (42-52); MEAN CELL VOLUME 92.6 fL (80-100); MEAN CORPUSCULAR HEMOGLOBIN 30.5 pg (25-34); MEAN CORPUSCULAR HGB CONC 32.9 g/dl (32-36); MEAN PLATELET VOLUME 11.4 fL (7.4-10.4); PLATELET COUNT 220 K/uL (130-400); RED BLOOD COUNT 4.07 M/uL (4.7-6.1); WHITE BLOOD COUNT 9.97 K/uL (4.8-10.8)
[2016-11-08 06:23] LABS: ESTIMATED AVERAGE GLUCOSE 220 mg/dl; HA1C FLAG Normal (Normal); INR 3.4 (0.9-1.1); PROTHROMBIN TIME (PATIENT) 37.7 SECONDS (9.0-12.0)
[2016-11-08 06:49] LABS: BUN/CREATININE RATIO 19.9 (10-20); CALCIUM 9.2 mg/dl (8.5-10.1); CREATININE 0.92 mg/dl (0.60-1.40); POTASSIUM 4.2 mmol/L (3.5-5.1)
[2016-11-08] MEDS: TAPENTADOL ER 50 MG TABCR PO SCH ×2 (07:56→20:51)
[2016-11-08] MEDS: METOPROLOL SUCC 50MG EXT REL TAB PO SCH (07:56)
[2016-11-08] MEDS: MAGNESIUM OXIDE 400 MG TAB PO SCH (07:57)
[2016-11-08] MEDS: PANTOprazole SOD 40 MG TAB PO SCH (07:57)
[2016-11-08] MEDS: DULOXETINE (CYMBALTA) 30 MG CAP PO SCH (07:57)
[2016-11-08] MEDS: POLYETHYLENE (MIRALAX) 17 GM PACK PO SCH (07:58)
[2016-11-08] MEDS: INSULIN GLARGINE SOLOSTAR 100 UNITS/ML 3 ML PEN SC SCH ×2 (08:13→20:58)
--- NOTE | 2016-11-08 08:59 | Pharmacy Progress Note ---
Glycemic Control: Progress Nt Date of Service Nov 08, 2016. Scope Glycemic Pharmacist consulted by Dr Hdz on 11/07/16 for glycemic control and to write orders per [facility] inpatient glycemic control protocol. Objective Accuchecks BSG (last 24hrs): Test 11/07/16 11:07 11/07/16 17:03 11/07/16 20:08 11/08/16 00:01 Bedside Glucose 300 mg/dl (70-99) 253 mg/dl (70-99) 314 mg/dl (70-99) 251 mg/dl (70-99) Test 11/08/16 04:13 11/08/16 05:50 11/08/16 07:39 Bedside Glucose 231 mg/dl (70-99) 205 mg/dl (70-99) Random Glucose 233 mg/dl (70-99) Laboratory Data (last 24hrs) Test 11/08/16 05:50 Anion Gap 7.0 mmol/L BUN/Creatinine Ratio 19.9 Blood Urea Nitrogen 18 mg/dl Creatinine 0.92 mg/dl Hemoglobin A1c 9.3 % Potassium Level 4.2 mmol/L Sodium Level 137 mmol/L White Blood Count 9.97 K/uL HbA1c: Test 11/08/16 05:50 Hemoglobin A1c 9.3 %(4.5-5.6) H Recent Pertinent Medications Outpatient Anti-diabetic Regimen: * Levemir 15 units SQ q PM * A1c = 9.7 % 08/30/16 The patient is currently receiving: * Basal insulin: Lantus 20 units every 12 hours * Correctional Insulin: NovoLog Correction per scale AC/HS/ Goal Range: Low 100 mg/dL - High 140 mg/dL Correction Factor: 12 mg/dL/unit * Prandial insulin: Per carb ratio of 1 unit per 5 grams CHO consumed Risk Factors for Insulin Resistance: * Steroids: Solu-Medrol 40mg IV every 8 hours --> Prednisone 40mg PO daily * Infection: osteomyelitis being treated with vancomycin IV * Diet: taking PO Assessment & Plan ASSESSMENT: Initial: * ADA & AACE recommend a goal blood sugar range 140-180 mg/dl for the majority of critically ill & non-critically ill patients. However, more stringent targets may be selected in individual cases. Will utilize more stringent goal of 100-140mg/dl based on patient age & comorbidities. Additionally, tighter glycemic control is warranted to facilitate wound/infection healing. * 71 y/o type 2 diabetic with an elevated A1c and osteomyelitis * BSG on admission elevated before steroids started * ATC steroids started and BSGs >300mg/dL * Historically, Mr. Sandra is known to the glycemic consult service and has tolerated >100 units of insulin per day 11/08/16 * Acute hyperglycemic continued throughout the day on 11/07 despite 132 units of insulin administered * BSG this AM continues to be elevated * hesitate to further increase basal insulin since steroids changed to PO prednisone today * will tighten NovoLog parameters for breakfast. Lack of evidence at lunch ( BSG 241mg/dL) to further loosen NovoLog parameters PLAN FOR INPATIENT GLYCEMIC CONTROL: * Basal insulin * Continue Lantus 20 units SQ BID * uses Levemir at home - is this lasting a full 24 hours? * Bolus insulin * Continue NovoLog AC/ while hyperglycemia persists * Tighten correction factor to 10mg/dL/unit * Tighten carb ratio to 1 unit per 4g of CHO consumed * Goal range: 110-140mg/dL to facilitate infection healing * Titrate insulin doses with each stepdown in steroid therapy * A1c is current * add to discharge instructions RECOMMENDATIONS FOR DISCHARGE: * Awaited - difficult to determine needs off of steroids at this time. * Mr. Sandra is not open to addition of NovoLog * Is agreeable to increasing Levemir as needed * questionable addition of metformin or GLP1? * Please note that the plan above was derived based on current level of insulin resistance and hospital stress. These recommendations are appropriate for inpatient admission only. Plan of care upon discharge will need to be reassessed to avoid potential outpatient hypo/hyperglycemia. Thank you.
[2016-11-08] MEDS ORDERED: VANCOMYCIN TROUGH ONE (09:30)
--- NOTE | 2016-11-08 09:36 | Clinical Documentation Query ---
CLINICAL DOCUMENTATION QUERY COPD exacerbation well documented on admission. It was aggressively treated with IV Solumedrol and Nebs. Acute bronchitis and or viral URI have been suspected as culprits. In your clinical opinion is this patient being managed for: ( ) COPD exacerbation treated and resolved ( ) Not Agree Please clarify and document your clinical opinion in the progress notes and discharge summary. Terms such as "probable", "suspected", "likely", "questionable", "possible", or "still to be ruled out" are acceptable. IF IN AGREEMENT, YOU MUST DOCUMENT ABOVE DIAGNOSTIC STATEMENT IN DAILY PROGRESS NOTES AND DISCHARGE SUMMARY. This document is not part of the patient's record. Thank You, Jorge Juarez, RN [phone]
[2016-11-08] MEDS: VANCOMYCIN INJ 1,900 MG in SODIUM CHLORIDE 0.9% 500ML 500 ML IV SCH ×2 (10:41→18:07)
--- NOTE | 2016-11-08 11:31 | Progress Note ---
Subjective Date of Service: Nov 08, 2016. Subjective pt had ortho eval, planning surgery on Sunday. afebrile overnight, tolerating vanco, blood cultures pending. wbc 9.9 Objective Vital Signs Date Time Temp Pulse Resp B/P Pulse Ox O2 Delivery O2 Flow Rate FiO2 11/08/16 08:00 92 Room Air 11/08/16 07:47 36.5 87 17 119/71 92 Room Air 11/08/16 07:37 77 16 94 Room Air 11/08/16 02:12 88 16 94 Room Air 11/07/16 23:33 36.8 89 20 100/62 94 Room Air 11/07/16 23:20 Room Air 11/07/16 19:03 87 16 95 Room Air 11/07/16 16:00 93 Room Air 11/07/16 14:56 36.8 89 20 127/71 93 Room Air 11/07/16 14:25 88 16 92 Room Air Laboratory Results Item Value Date Time Blood Culture - Preliminary Resulted 11/06/16 1625 Blood NO GROWTH TO DATE. Blood Culture - Preliminary Resulted 11/06/16 1635 Blood NO GROWTH TO DATE. Last 24 Hours Test 11/07/16 17:03 11/07/16 20:08 11/08/16 00:01 11/08/16 04:13 Bedside Glucose 253 mg/dl 314 mg/dl 251 mg/dl 231 mg/dl Test 11/08/16 05:50 11/08/16 07:39 11/08/16 10:01 White Blood Count 9.97 K/uL Red Blood Count 4.07 M/uL Hemoglobin 12.4 g/dL Hematocrit 37.7 % Mean Corpuscular Volume 92.6 fL Mean Corpuscular Hemoglobin 30.5 pg Mean Corpuscular Hemoglobin Concent 32.9 g/dl RDW Standard Deviation 46.2 fL RDW Coefficient of Variation 13.6 % Platelet Count 220 K/uL Mean Platelet Volume 11.4 fL Prothrombin Time 37.7 SECONDS Prothromb Time International Ratio 3.4 Sodium Level 137 mmol/L Potassium Level 4.2 mmol/L Chloride Level 103 mmol/L Carbon Dioxide Level 27 mmol/L Anion Gap 7.0 mmol/L Blood Urea Nitrogen 18 mg/dl Creatinine 0.92 mg/dl Est Creatinine Clear Calc Drug Dose 113.1 ml/min Estimated GFR () 98.0 Estimated GFR (Non- 84.6 BUN/Creatinine Ratio 19.9 Random Glucose 233 mg/dl Estimated Average Glucose 220 mg/dl Hemoglobin A1c 9.3 % Calcium Level 9.2 mg/dl Bedside Glucose 205 mg/dl Vancomycin Level Trough 12.9 mcg/ml Assessment and Plan (1) Osteomyelitis Assessment & Plan: continue vanco for now, no clear evidence of dapto allergy but had intolerance. await surgical findings.
--- NOTE | 2016-11-08 17:09 | Progress Note ---
Medicine Progress Note Date & Time of Visit: Nov 08, 2016 at 16:58. Subjective Pt was seen and examined Sitting at the edge of the bed with no distress Pt said that he feels fine Denies any chest pain, palpitation, dizziness and SOB Objective Last 8 Hrs Date Time Temp Pulse Resp B/P Pulse Ox O2 Delivery O2 Flow Rate FiO2 11/08/16 16:02 36.7 74 18 126/75 93 Room Air 11/08/16 16:00 93 Room Air 11/08/16 13:45 73 16 94 Room Air Physical Exam: General- No acute distress Head- atraumatic Eyes- PERRL, EOMI ENT- oropharynx clear Neck- supple, no JVD Lungs- coarse BS Heart- regular rhythm; +systolic murmur Abdomen- normal bowel sounds, soft Extremities-no calf tenderness, osteomyelitis of Right great toe Neuro- alert, oriented x 3; PERRL, EOMI; no facial palsy; no dysarthria Skin- warm & dry Laboratory Results: Last 24 Hours Test 11/07/16 17:03 11/07/16 20:08 11/08/16 00:01 11/08/16 04:13 Bedside Glucose 253 mg/dl 314 mg/dl 251 mg/dl 231 mg/dl Test 11/08/16 05:50 11/08/16 07:39 11/08/16 10:01 11/08/16 11:20 White Blood Count 9.97 K/uL Red Blood Count 4.07 M/uL Hemoglobin 12.4 g/dL Hematocrit 37.7 % Mean Corpuscular Volume 92.6 fL Mean Corpuscular Hemoglobin 30.5 pg Mean Corpuscular Hemoglobin Concent 32.9 g/dl RDW Standard Deviation 46.2 fL RDW Coefficient of Variation 13.6 % Platelet Count 220 K/uL Mean Platelet Volume 11.4 fL Prothrombin Time 37.7 SECONDS Prothromb Time International Ratio 3.4 Sodium Level 137 mmol/L Potassium Level 4.2 mmol/L Chloride Level 103 mmol/L Carbon Dioxide Level 27 mmol/L Anion Gap 7.0 mmol/L Blood Urea Nitrogen 18 mg/dl Creatinine 0.92 mg/dl Est Creatinine Clear Calc Drug Dose 113.1 ml/min Estimated GFR () 98.0 Estimated GFR (Non- 84.6 BUN/Creatinine Ratio 19.9 Random Glucose 233 mg/dl Estimated Average Glucose 220 mg/dl Hemoglobin A1c 9.3 % Calcium Level 9.2 mg/dl Bedside Glucose 205 mg/dl 241 mg/dl Vancomycin Level Trough 12.9 mcg/ml Test 11/08/16 16:21 Bedside Glucose 232 mg/dl Assessment & Plan SHORTNESS OF BREATH Possible related to COPD vs viral URI or bronchitis Afebrile; no leukocytosis; saturating well on RA CXR showed bibasilar airspace opacities, likely representing atelectasis Influenza PCR negative Blood culture no growth Levaquin D/C as per ID recommendation Continue Xopenex-Atrovent nebs stable RIGHT GREAT TOE OSTEOMYELITIS/ DIABETIC ULCER Sent by Dr. Malhotra for direct admission Wound culture September 22 2016 grew enterococcus faecalis Seen by ortho Dr. Ortega- plan for amputation; Was cleared by cardiology Dr. Casillas for surgery Has been on daptomycin via PICC line as outpatient -> ? reaction to daptomycin D/c daptomycin as per ID recommendation Continue IV vancomycin as per ID Continue wound care Ortho consulted and planning for surgery on Sunday for amputation Pt is medically stable for surgery PAROXYSMAL ATRIAL FIBRILLATION Rate is controlled Continue metoprolol On Coumadin; INR 3.4 today Coumadin has been on hold since 11/07 for the procedure on Sunday If INR is above 3 tomorrow, will give vit K for the surgery CAD Stable Continue beta armen Will hold Aspirin tomorrow dose for possible surgery Resume statin which was held while on daptomycin HISTORY OF ENDOCARDITIS S/p emergent MVR and AVR September 2014 in [place] Echo done on 09/21/16: * The left ventricle is normal in size. * There is mild concentric left ventricular hypertrophy. * There is mild global hypokinesis of the left ventricle. * Ejection Fraction = 45-50%. * The left atrium is mildly dilated. * There is a bioprosthetic aortic valve. * The gradient is normal for this prosthetic aortic valve. * Bioprosthetic leaflets are thin and move normally. * There is no aortic valvular vegetation. * There is a bioprosthetic mitral valve. * Bioprosthesis leaflets are thin and move normally. * There are no vegetations on this prosthetic mitral valve. * There is no mitral valve stenosis. * There is no mitral regurgitation noted. DM TYPE 2 A1c 9.4 in 08/2016 Continue basal long acting insulin Novolog sliding scale DEPRESSION Continue Cymbalta CHRONIC NECK PAIN Continue Nucynta DVT PROPHYLAXIS INR 3.4 today Coumadin on Hold due to surgery CODE STATUS Full code Consultants: Ortho ID Current Inpatient Medications: Current Inpatient Medications Medications (Trade) Dose Ordered Sig/Eder Route Start Time Stop Time Status Last Admin Dose Admin Acetaminophen (Tylenol Tab) 650 mg Q4H PRN PO 11/06/16 16:00 12/06/16 15:59 Ondansetron HCl (Zofran Inj) 4 mg Q6H PRN IV 11/06/16 16:00 12/06/16 15:59 Vancomycin HCl (Consult) 1 ea UD PRN N/A 11/06/16 17:17 12/06/16 17:16 Insulin Aspart (novoLOG ASPART) SLIDING SCALE If C... ACHS SC 11/06/16 22:00 12/06/16 21:59 11/08/16 12:30 29 UNITS Glucose (Glucose 40% Gel) 15-30 GRAMS 15 GRAMS... UD PRN PO 11/06/16 17:00 12/06/16 16:59 Glucose (Glucose Chew Tab) 4-8 Tablets 4 Tabl... UD PRN PO 11/06/16 17:00 12/06/16 16:59 Dextrose (Dextrose 50% 50ML Syringe) 25-50ML OF 50% DW IV FOR... UD PRN IV 11/06/16 17:00 12/06/16 16:59 Glucagon (Glucagon Inj) 1 mg UD PRN SQ 11/06/16 17:00 12/06/16 16:59 Ipratropium [place] (Atrovent 0.02% 0.5MG/2.5ML Neb) 0.5 mg Q6R INH 11/06/16 21:00 12/06/16 20:59 11/08/16 13:44 0.5 MG Levalbuterol (Xopenex 1.25MG/ 0.5ML Neb) 1.25 mg Q6R INH 11/06/16 21:00 12/06/16 20:59 11/08/16 13:44 1.25 MG Ipratropium [place] (Atrovent 0.02% 0.5MG/2.5ML Neb) 0.5 mg Q2H PRN INH 11/06/16 17:30 12/06/16 17:29 Levalbuterol (Xopenex 0.63 Mg/ 3 Ml Neb) 0.63 mg Q2H PRN INH 11/06/16 17:30 12/06/16 17:29 Aspirin (Ecotrin Tab) 162 mg QAM PO 11/07/16 08:00 12/07/16 07:59 Future Hold 11/07/16 08:46 162 MG Diphenhydramine HCl (Benadryl Cap) 25 mg HS PRN PO 11/06/16 17:30 12/06/16 17:29 Duloxetine HCl (Cymbalta Cap) 30 mg DAILY PO 11/07/16 08:00 12/07/16 07:59 11/08/16 07:57 30 MG Magnesium Oxide (Mag-Ox Tab) 400 mg QAM PO 11/07/16 08:00 12/07/16 07:59 11/08/16 07:57 400 MG Metoprolol Succinate (Toprol Xl Tab) 100 mg DAILY PO 11/07/16 08:00 12/07/16 07:59 11/08/16 07:56 100 MG Nitroglycerin (Nitrostat Tab) 0.4 mg UD PRN UT 11/06/16 17:30 12/06/16 17:29 Pantoprazole Sodium (Protonix Tab) 40 mg QAM PO 11/07/16 08:00 12/07/16 07:59 11/08/16 07:57 40 MG Tapentadol (Nucynta Tab) 50 mg Q8 PRN PO 11/06/16 17:30 11/20/16 17:29 Warfarin Sodium (Coumadin Tab) 6 mg [id number]@1600 PO 11/06/16 17:30 12/06/16 17:29 Future Hold 11/06/16 20:14 6 MG Polyethylene (Miralax Powder Packet) 17 gm QAM PO 11/07/16 08:00 12/07/16 07:59 11/08/16 07:58 17 GM Tapentadol (Nucynta Er Tab) 100 mg BID PO 11/06/16 20:00 12/06/16 19:59 11/08/16 07:56 100 MG Pravastatin Sodium (Pravachol Tab) 80 mg HS PO 11/06/16 22:00 12/06/16 21:59 11/07/16 21:47 80 MG Heparin Sodium (Porcine) (Heparin 10 Unit/ ml 5 ml Flush) 5 ml PRN PRN FLUSH 11/07/16 00:30 12/07/16 00:29 11/08/16 10:05 5 ML Miscellaneous Information (Consult Glycemic Management Pharmacy) 1 ea UD PRN N/A 11/07/16 08:30 12/07/16 08:29 Insulin Glargine (Lantus Solostar Pen) SEE PROTOCOL TEXT BID SC 11/07/16 09:00 12/07/16 08:59 11/08/16 08:13 20 UNIT Insulin Aspart (novoLOG ASPART) SLIDING SCALE If C... 0000,0400 SC 11/08/16 00:00 12/08/16 00:00 11/08/16 04:15 8 UNITS Prednisone 40 mg 40 mg DAILY PO 11/07/16 18:00 12/07/16 17:59 11/08/16 07:58 40 MG Vancomycin HCl/ Sodium Chloride (Vancomycin Inj/ Nss 500ml) 538 ml @ 200 mls/hr Q9H IV 11/08/16 18:00 12/19/16 17:59
--- NOTE | 2016-11-08 17:57 | Pharmacy Progress Note ---
Pharmacy Antibiotic Prog Note Date of Service Nov 08, 2016. Subjective The patient is currently receiving vancomycin 1900 mg IV every 10 hours. The patient is currently on day # 3 of vancomycin IV therapy for osteomyelitis of right toe. Objective Height (Feet): 6 Height (Inches): 4.00 Weight (Kilograms): 133.600 Lab Results (24hrs): Item Value Date Time Vancomycin Level Trough 12.9 mcg/ml 11/08/16 1001 Laboratory Tests Test 11/08/16 05:50 BUN/Creatinine Ratio 19.9 Blood Urea Nitrogen 18 mg/dl Creatinine 0.92 mg/dl White Blood Count 9.97 K/uL Recent Pertinent Medications Pt was on IV daptomycin at home prior to admission. Assessment & Plan Vancomycin trough 12.9mcg/ml: This drug level is: Subtherapeutic Change to vancomycin 1900 mg IV every 9 hours. Goal trough level estimate: between 15 - 20 mcg/mL for osteo. Peak and trough or random level has been ordered for: 11/10 prior to 0600 dose. Pharmacy will continue to follow and will adjust dose/frequency as necessary. Thank you
[2016-11-08] MEDS: PRAVASTATIN SOD 40 MG TAB PO SCH (20:55)
[2016-11-09] VITALS (9 sets, daily range): BP systolic 122–137; BP diastolic 70–82; PULSE 66–74; TEMP 36.5–36.8; O2SAT 93–97
[2016-11-09] MEDS: LEVALBUTEROL 1.25MG/0.5ML NEB INH SCH ×4 (01:04→19:39)
[2016-11-09] MEDS: IPRATROPIUM BROMIDE NEB SOLN 0.02% 2.5 ML VIAL INH SCH ×4 (01:04→19:39)
[2016-11-09] MEDS: INSULIN ASPART 100 UNITS/ML 3 ML PEN SC SCH ×5 (04:00→21:57)
[2016-11-09] MEDS: VANCOMYCIN INJ 1,900 MG in SODIUM CHLORIDE 0.9% 500ML 500 ML IV SCH ×3 (04:10→20:57)
[2016-11-09 06:13] LABS: INR 2.5 (0.9-1.1); PROTHROMBIN TIME (PATIENT) 27.4 SECONDS (9.0-12.0)
[2016-11-09 06:21] LABS: HEMATOCRIT 37.6 % (42-52); MEAN CELL VOLUME 93.1 fL (80-100); MEAN CORPUSCULAR HEMOGLOBIN 30.4 pg (25-34); MEAN CORPUSCULAR HGB CONC 32.7 g/dl (32-36); MEAN PLATELET VOLUME 11.6 fL (7.4-10.4); PLATELET COUNT 209 K/uL (130-400); RED BLOOD COUNT 4.04 M/uL (4.7-6.1); WHITE BLOOD COUNT 9.38 K/uL (4.8-10.8)
[2016-11-09 06:38] LABS: BUN/CREATININE RATIO 24.7 (10-20); CALCIUM 8.5 mg/dl (8.5-10.1); CREATININE 0.75 mg/dl (0.60-1.40); POTASSIUM 3.4 mmol/L (3.5-5.1)
[2016-11-09] MEDS ORDERED: POTASSIUM CHLORIDE 20 MEQ TABCR PO ONE (07:45)
[2016-11-09] MEDS: PANTOprazole SOD 40 MG TAB PO SCH (08:19)
[2016-11-09] MEDS: TAPENTADOL ER 50 MG TABCR PO SCH ×2 (08:19→20:34)
[2016-11-09] MEDS: DULOXETINE (CYMBALTA) 30 MG CAP PO SCH (08:20)
[2016-11-09] MEDS: MAGNESIUM OXIDE 400 MG TAB PO SCH (08:20)
[2016-11-09] MEDS: METOPROLOL SUCC 50MG EXT REL TAB PO SCH (08:20)
[2016-11-09] MEDS: POLYETHYLENE (MIRALAX) 17 GM PACK PO SCH (08:21)
[2016-11-09] MEDS: INSULIN GLARGINE SOLOSTAR 100 UNITS/ML 3 ML PEN SC SCH (08:29)
--- NOTE | 2016-11-09 18:57 | Progress Note ---
Medicine Progress Note Date & Time of Visit: Nov 09, 2016 at 18:45. Subjective Pt was seen and examined Sitting in chair very comfortable with no distress Pt said that he feels fine denies any chest pain, palpitation, dizziness and sob Objective Last 8 Hrs Date Time Temp Pulse Resp B/P Pulse Ox O2 Delivery O2 Flow Rate FiO2 11/09/16 15:51 97 Room Air 11/09/16 14:44 36.6 66 18 122/70 97 Room Air 11/09/16 14:29 66 16 96 Room Air Physical Exam: General- No acute distress Head- atraumatic Eyes- PERRL, EOMI ENT- oropharynx clear Neck- supple, no JVD Lungs- coarse BS Heart- regular rhythm; +systolic murmur Abdomen- normal bowel sounds, soft Extremities-no calf tenderness, osteomyelitis of Right great toe Neuro- alert, oriented x 3; PERRL, EOMI; no facial palsy; no dysarthria Skin- warm & dry Laboratory Results: Last 24 Hours Test 11/08/16 19:59 11/08/16 23:44 11/09/16 03:51 11/09/16 05:30 Bedside Glucose 224 mg/dl 188 mg/dl 80 mg/dl White Blood Count 9.38 K/uL Red Blood Count 4.04 M/uL Hemoglobin 12.3 g/dL Hematocrit 37.6 % Mean Corpuscular Volume 93.1 fL Mean Corpuscular Hemoglobin 30.4 pg Mean Corpuscular Hemoglobin Concent 32.7 g/dl RDW Standard Deviation 46.6 fL RDW Coefficient of Variation 13.7 % Platelet Count 209 K/uL Mean Platelet Volume 11.6 fL Prothrombin Time 27.4 SECONDS Prothromb Time International Ratio 2.5 Sodium Level 139 mmol/L Potassium Level 3.4 mmol/L Chloride Level 104 mmol/L Carbon Dioxide Level 31 mmol/L Anion Gap 4.0 mmol/L Blood Urea Nitrogen 18 mg/dl Creatinine 0.75 mg/dl Est Creatinine Clear Calc Drug Dose 138.7 ml/min Estimated GFR () 108.5 Estimated GFR (Non- 93.6 BUN/Creatinine Ratio 24.7 Random Glucose 112 mg/dl Calcium Level 8.5 mg/dl Test 11/09/16 07:35 11/09/16 11:24 11/09/16 16:48 Bedside Glucose 103 mg/dl 199 mg/dl 180 mg/dl Assessment & Plan SHORTNESS OF BREATH Possible related viral URI vs bronchitis Doubt about COPD exacerbation Afebrile; no leukocytosis; saturating well on RA CXR showed bibasilar airspace opacities, likely representing atelectasis Influenza PCR negative Blood culture no growth Levaquin D/C as per ID recommendation Continue Xopenex-Atrovent nebs stable RIGHT GREAT TOE OSTEOMYELITIS/ DIABETIC ULCER Sent by Dr. Malhotra for direct admission Wound culture September 22 2016 grew enterococcus faecalis Seen by ortho Dr. Ortega- plan for amputation; Was cleared by cardiology Dr. Casillas for surgery Has been on daptomycin via PICC line as outpatient -> ? reaction to daptomycin D/c daptomycin as per ID recommendation Continue IV vancomycin as per ID Continue wound care Ortho consulted and planning for surgery possible tomorrow or amputation Will keep NPO after midnight Case discussed with Dr. Ortega that planing for surgery tomorrow Dr. Ortega will prefer the INR to be below 1.6 Will give vit K 5 mg tonight for the surgery in am Pt is medically stable for surgery PAROXYSMAL ATRIAL FIBRILLATION Rate is controlled Continue metoprolol On Coumadin; INR 2.5 today Coumadin has been on hold since 11/07 for the procedure on Sunday CAD Asymptomatic Continue beta armen Will hold Aspirin tomorrow dose for possible surgery Resume statin which was held while on daptomycin HISTORY OF ENDOCARDITIS S/p emergent MVR and AVR September 2014 in [place] Echo done on 09/21/16: * The left ventricle is normal in size. * There is mild concentric left ventricular hypertrophy. * There is mild global hypokinesis of the left ventricle. * Ejection Fraction = 45-50%. * The left atrium is mildly dilated. * There is a bioprosthetic aortic valve. * The gradient is normal for this prosthetic aortic valve. * Bioprosthetic leaflets are thin and move normally. * There is no aortic valvular vegetation. * There is a bioprosthetic mitral valve. * Bioprosthesis leaflets are thin and move normally. * There are no vegetations on this prosthetic mitral valve. * There is no mitral valve stenosis. * There is no mitral regurgitation noted. DM TYPE 2 A1c 9.4 in 08/2016 Continue basal long acting insulin NovoLog sliding scale DEPRESSION Continue Cymbalta CHRONIC NECK PAIN Continue Nucynta DVT PROPHYLAXIS INR 2.5 today Coumadin on Hold due to surgery CODE STATUS Full code Consultants: Teena BOWLING Current Inpatient Medications: Current Inpatient Medications Medications (Trade) Dose Ordered Sig/Eder Route Start Time Stop Time Status Last Admin Dose Admin Acetaminophen (Tylenol Tab) 650 mg Q4H PRN PO 11/06/16 16:00 12/06/16 15:59 Ondansetron HCl (Zofran Inj) 4 mg Q6H PRN IV 11/06/16 16:00 12/06/16 15:59 Vancomycin HCl (Consult) 1 ea UD PRN N/A 11/06/16 17:17 12/06/16 17:16 Insulin Aspart (novoLOG ASPART) SLIDING SCALE If C... ACHS SC 11/06/16 22:00 12/06/16 21:59 11/09/16 12:24 23 UNITS Glucose (Glucose 40% Gel) 15-30 GRAMS 15 GRAMS... UD PRN PO 11/06/16 17:00 12/06/16 16:59 Glucose (Glucose Chew Tab) 4-8 Tablets 4 Tabl... UD PRN PO 11/06/16 17:00 12/06/16 16:59 Dextrose (Dextrose 50% 50ML Syringe) 25-50ML OF 50% DW IV FOR... UD PRN IV 11/06/16 17:00 12/06/16 16:59 Glucagon (Glucagon Inj) 1 mg UD PRN SQ 11/06/16 17:00 12/06/16 16:59 Ipratropium [place] (Atrovent 0.02% 0.5MG/2.5ML Neb) 0.5 mg Q6R INH 11/06/16 21:00 12/06/16 20:59 11/09/16 14:29 0.5 MG Levalbuterol (Xopenex 1.25MG/ 0.5ML Neb) 1.25 mg Q6R INH 11/06/16 21:00 12/06/16 20:59 11/09/16 14:29 1.25 MG Ipratropium [place] (Atrovent 0.02% 0.5MG/2.5ML Neb) 0.5 mg Q2H PRN INH 11/06/16 17:30 12/06/16 17:29 Levalbuterol (Xopenex 0.63 Mg/ 3 Ml Neb) 0.63 mg Q2H PRN INH 11/06/16 17:30 12/06/16 17:29 Aspirin (Ecotrin Tab) 162 mg QAM PO 11/07/16 08:00 12/07/16 07:59 Future Hold 11/07/16 08:46 162 MG Diphenhydramine HCl (Benadryl Cap) 25 mg HS PRN PO 11/06/16 17:30 12/06/16 17:29 Duloxetine HCl (Cymbalta Cap) 30 mg DAILY PO 11/07/16 08:00 12/07/16 07:59 11/09/16 08:20 30 MG Magnesium Oxide (Mag-Ox Tab) 400 mg QAM PO 11/07/16 08:00 12/07/16 07:59 11/09/16 08:20 400 MG Metoprolol Succinate (Toprol Xl Tab) 100 mg DAILY PO 11/07/16 08:00 12/07/16 07:59 11/09/16 08:20 100 MG Nitroglycerin (Nitrostat Tab) 0.4 mg UD PRN [place] 11/06/16 17:30 12/06/16 17:29 Pantoprazole Sodium (Protonix Tab) 40 mg QAM PO 11/07/16 08:00 12/07/16 07:59 11/09/16 08:19 40 MG Tapentadol (Nucynta Tab) 50 mg Q8 PRN PO 11/06/16 17:30 11/20/16 17:29 Warfarin Sodium (Coumadin Tab) 6 mg SuMoWeThFrSa@1600 PO 11/06/16 17:30 12/06/16 17:29 Future Hold 11/06/16 20:14 6 MG Polyethylene (Miralax Powder Packet) 17 gm QAM PO 11/07/16 08:00 12/07/16 07:59 11/09/16 08:21 17 GM Tapentadol (Nucynta Er Tab) 100 mg BID PO 11/06/16 20:00 12/06/16 19:59 11/09/16 08:19 100 MG Pravastatin Sodium (Pravachol Tab) 80 mg HS PO 11/06/16 22:00 12/06/16 21:59 11/08/16 20:55 80 MG Heparin Sodium (Porcine) (Heparin 10 Unit/ ml 5 ml Flush) 5 ml PRN PRN FLUSH 11/07/16 00:30 12/07/16 00:29 11/08/16 10:05 5 ML Miscellaneous Information (Consult Glycemic Management Pharmacy) 1 ea UD PRN N/A 11/07/16 08:30 12/07/16 08:29 Insulin Glargine (Lantus Solostar Pen) SEE PROTOCOL TEXT BID SC 11/07/16 09:00 12/07/16 08:59 11/09/16 08:29 15 UNIT Insulin Aspart (novoLOG ASPART) SLIDING SCALE If C... 0000,0400 SC 11/08/16 00:00 12/08/16 00:00 11/08/16 23:48 4 UNITS Prednisone 40 mg 40 mg DAILY PO 11/07/16 18:00 12/07/16 17:59 11/09/16 08:20 40 MG Vancomycin HCl/ Sodium Chloride (Vancomycin Inj/ Nss 500ml) 538 ml @ 200 mls/hr Q9H IV 11/08/16 18:00 12/19/16 17:59 11/09/16 12:47 200 MLS/HR
[2016-11-09] MEDS ORDERED: PHYTONADIONE 5 MG TAB PO ONE (20:00)
[2016-11-09] MEDS: PRAVASTATIN SOD 40 MG TAB PO SCH (20:57)
[2016-11-09] MEDS ORDERED: INSULIN GLARGINE SOLOSTAR 100 UNITS/ML 3 ML PEN SC ONE (21:30)
[2016-11-10] VITALS (9 sets, daily range): BP systolic 111–135; BP diastolic 70–77; PULSE 18–72; TEMP 36.3–36.8; O2SAT 92–96
[2016-11-10] MEDS: INSULIN ASPART 100 UNITS/ML 3 ML PEN SC SCH ×6 (00:45→22:20)
[2016-11-10] MEDS: IPRATROPIUM BROMIDE NEB SOLN 0.02% 2.5 ML VIAL INH SCH ×4 (01:08→19:17)
[2016-11-10] MEDS: LEVALBUTEROL 1.25MG/0.5ML NEB INH SCH ×4 (01:09→19:17)
[2016-11-10] MEDS ORDERED: VANCOMYCIN TROUGH ONE (05:30)
[2016-11-10 06:24] LABS: HEMATOCRIT 38.4 % (42-52); MEAN CORPUSCULAR HEMOGLOBIN 30.5 pg (25-34); MEAN CORPUSCULAR HGB CONC 32.8 g/dl (32-36); PLATELET COUNT 196 K/uL (130-400); RED BLOOD COUNT 4.13 M/uL (4.7-6.1)
[2016-11-10] MEDS: VANCOMYCIN INJ 1,900 MG in SODIUM CHLORIDE 0.9% 500ML 500 ML IV SCH ×2 (06:29→15:55)
[2016-11-10 06:34] LABS: INR 1.7 (0.9-1.1); PROTHROMBIN TIME (PATIENT) 18.5 SECONDS (9.0-12.0)
[2016-11-10 06:54] LABS: BUN/CREATININE RATIO 21.7 (10-20); CREATININE 0.8 mg/dl (0.60-1.40); POTASSIUM 3.7 mmol/L (3.5-5.1)
[2016-11-10 06:55] LABS: CALCIUM 8.8 mg/dl (8.5-10.1)
[2016-11-10] MEDS ORDERED: PHYTONADIONE 5 MG TAB PO ONE (09:30)
[2016-11-10] MEDS: METOPROLOL SUCC 50MG EXT REL TAB PO SCH (10:08)
[2016-11-10] MEDS: TAPENTADOL ER 50 MG TABCR PO SCH ×2 (10:09→20:14)
--- NOTE | 2016-11-10 11:07 | Progress Note ---
Subjective Date of Service: Nov 10, 2016. Subjective Pt evaluation today including: conversation w/ patient, physical exam, chart review, lab review Problem List pt for amp today. No pain, no f/c. breathing and muscle pain much improved. tolerating vanco. no overnight events. no complaints on exam, awaiting OR. remaining ros reviewed and are negative. Objective Vital Signs Date Time Temp Pulse Resp B/P Pulse Ox O2 Delivery O2 Flow Rate FiO2 11/10/16 08:38 36.5 72 18 125/76 96 Room Air 11/10/16 07:55 70 16 95 Room Air 11/10/16 00:00 Room Air 11/09/16 23:41 36.8 69 20 137/82 94 Room Air 11/09/16 19:40 74 16 95 Room Air 11/09/16 15:51 97 Room Air 11/09/16 14:44 36.6 66 18 122/70 97 Room Air 11/09/16 14:29 66 16 96 Room Air Physical Exam General Appearance: WD/WN, no apparent distress Eyes: normal inspection, EOMI Neck: supple Respiratory/Chest: lungs clear, normal breath sounds, no respiratory distress Cardiovascular: regular rate, rhythm, no edema Abdomen: non tender, soft Extremities: non-tender, normal inspection, no pedal edema Neurologic/Psychiatric: alert, oriented x 3 Skin: normal color Laboratory Results Item Value Date Time Blood Culture - Preliminary Resulted 11/06/16 1635 Blood NO GROWTH TO DATE. Blood Culture - Preliminary Resulted 11/06/16 1625 Blood NO GROWTH TO DATE. Last 24 Hours Test 11/09/16 11:24 11/09/16 16:48 11/09/16 20:20 11/10/16 00:49 Bedside Glucose 199 mg/dl 180 mg/dl 234 mg/dl 129 mg/dl Test 11/10/16 04:13 11/10/16 06:00 11/10/16 07:36 Bedside Glucose 98 mg/dl 108 mg/dl White Blood Count 9.50 K/uL Red Blood Count 4.13 M/uL Hemoglobin 12.6 g/dL Hematocrit 38.4 % Mean Corpuscular Volume 93.0 fL Mean Corpuscular Hemoglobin 30.5 pg Mean Corpuscular Hemoglobin Concent 32.8 g/dl RDW Standard Deviation 45.9 fL RDW Coefficient of Variation 13.5 % Platelet Count 196 K/uL Mean Platelet Volume 11.0 fL Prothrombin Time 18.5 SECONDS Prothromb Time International Ratio 1.7 Sodium Level 140 mmol/L Potassium Level 3.7 mmol/L Chloride Level 106 mmol/L Carbon Dioxide Level 31 mmol/L Anion Gap 3.0 mmol/L Blood Urea Nitrogen 17 mg/dl Creatinine 0.80 mg/dl Est Creatinine Clear Calc Drug Dose 130.0 ml/min Estimated GFR () 105.6 Estimated GFR (Non- 91.1 BUN/Creatinine Ratio 21.7 Random Glucose 108 mg/dl Calcium Level 8.8 mg/dl Vancomycin Level Trough 19.7 mcg/ml Assessment and Plan (1) Osteomyelitis Assessment & Plan: await OR findings. will need min 7 days post surgery abx, continue with vanco upon d/c. did not tolerating dapto. picc already in place. will need follow up at wound center or ID office post d/c to discuss need for potential extension of abx. will need weekly cbc, chem 12, esr, vanco torugh ( maintain 15-20) while on abx. will follow.
--- NOTE | 2016-11-10 12:14 | Pharmacy Progress Note ---
Pharmacy Antibiotic Prog Note Date of Service Nov 10, 2016. Subjective The patient is currently receiving Vancomycin 1,900mg (~14mg/kg) IV every 9 hours. The patient is currently on day # 5 of Vancomycin IV therapy. Objective Height (Feet): 6 Height (Inches): 4.00 Weight (Kilograms): 133.600 Levels: Item Value Date Time Vancomycin Level Trough 19.7 mcg/ml 11/10/16 0600 Vancomycin Level Trough 12.9 mcg/ml 11/08/16 1001 Micro Results: Item Value Date Time Blood Culture - Preliminary Resulted 11/06/16 1625 Blood NO GROWTH TO DATE. Blood Culture - Preliminary Resulted 11/06/16 1635 Blood NO GROWTH TO DATE. Assessment & Plan ASSESSMENT: * 71yo male receiving IV Vancomycin for osteomyelitis of right 1st toe. * Pt scheduled for OR today for amputation. Pt will need min of 7 days abx post- op per ID. * Vancomycin trough level today is therapeutic at 19.7mcg/ml, goal trough level for osteo is 15-20mcg/ml * However, Vancomycin trough level has increased from ~ 13 --> ~20 with very minimal change in dosing (just decreased dosing interval from Q10hrs to Q9hrs). * Pt BMI > 35 putting him at risk for vancomycin accumulation once Vd filled. * Vancomycin dosing will need empirically reduced to prevent supra-therapeutic levels. * Renal functio nis stable PLAN: * Lengthen dosing interval to allowed increased vancomycin excretion. Pt at risk for increased accumulation d/t obesity. * Change to Vancomycin 1,900mg IV Q10hrs * Continue to adjust vanco dosing to maintain trough level 15-20mcg/ml * Repeat/re-check vanco trough level on 11/12/16 @ 0800 Pharmacy will continue to follow and will adjust dose/frequency as necessary. Thank you
--- NOTE | 2016-11-10 14:09 | Pharmacy Progress Note ---
Glycemic Control: Progress Nt Date of Service Nov 10, 2016. Scope Glycemic Pharmacist consulted by Dr Hdz on 11/07/16 for glycemic control and to write orders per [facility] inpatient glycemic control protocol. Objective Accuchecks BSG (last 24hrs): Test 11/09/16 16:48 11/09/16 20:20 11/10/16 00:49 11/10/16 04:13 Bedside Glucose 180 mg/dl (70-99) 234 mg/dl (70-99) 129 mg/dl (70-99) 98 mg/dl (70-99) Test 11/10/16 06:00 11/10/16 07:36 Random Glucose 108 mg/dl (70-99) Bedside Glucose 108 mg/dl (70-99) Laboratory Data (last 24hrs) Test 11/10/16 06:00 Anion Gap 3.0 mmol/L BUN/Creatinine Ratio 21.7 Blood Urea Nitrogen 17 mg/dl Creatinine 0.80 mg/dl Potassium Level 3.7 mmol/L Sodium Level 140 mmol/L White Blood Count 9.50 K/uL HbA1c: Test 11/08/16 05:50 Hemoglobin A1c 9.3 % (4.5-5.6) H Recent Pertinent Medications Outpatient Anti-diabetic Regimen: * Levemir 15 units SQ q PM * A1c = 9.7 % 08/30/16 The patient is currently receiving: * Basal insulin: Lantus 20 units every 12 hours * Correctional Insulin: NovoLog Correction per scale AC/HS/ Goal Range: Low 110 mg/dL - High 140 mg/dL Correction Factor: 10 mg/dL/unit * Prandial insulin: Per carb ratio of 1 unit per 4 grams CHO consumed Risk Factors for Insulin Resistance: * Steroids: Prednisone 40mg PO daily * Infection: osteomyelitis being treated with vancomycin IV * Diet: NPO p [place] * Surgery: OR today Assessment & Plan ASSESSMENT: Initial: * ADA & AACE recommend a goal blood sugar range 140-180 mg/dl for the majority of critically ill & non-critically ill patients. However, more stringent targets may be selected in individual cases. Will utilize more stringent goal of 100-140mg/dl based on patient age & comorbidities. Additionally, tighter glycemic control is warranted to facilitate wound/infection healing. * 71 y/o type 2 diabetic with an elevated A1c and osteomyelitis * BSG on admission elevated before steroids started * ATC steroids started and BSGs >300mg/dL, now daily PO prednisone ordered * Historically, Mr. Sandra is known to the glycemic consult service and has tolerated >100 units of insulin per day 11/10/16 * Acute hyperglycemic has resolved with the change in steroids and NPO status * Basal insulin will need to be reduced drastically secondary to these two factors * BSG this AM WNL * Since steroids have largest effect on postprandial BSG and patient NPO, will loose NovoLog parameters based on weight and a stress of 2 continue to titrate regimen with each step down in steroid therapy PLAN FOR INPATIENT GLYCEMIC CONTROL: * Basal insulin * Begin Lantus 15 units SQ q PM (home dose) and titrate based on response and PO status * Bolus insulin * Continue NovoLog / * LOOSEN correction factor to 15 mg/dL/unit * LOOSEN carb ratio to 1 unit per 5g of CHO consumed * Goal range: 110-140mg/dL to facilitate infection healing * A1c is current * add to discharge instructions RECOMMENDATIONS FOR DISCHARGE: * Awaited - difficult to determine needs off of steroids at this time. * Mr. Sandra is not open to addition of NovoLog * Is agreeable to increasing Levemir as needed * questionable addition of metformin or GLP1? * Please note that the plan above was derived based on current level of insulin resistance and hospital stress. These recommendations are appropriate for inpatient admission only. Plan of care upon discharge will need to be reassessed to avoid potential outpatient hypo/hyperglycemia. Thank you.
[2016-11-10] MEDS ORDERED: MIDAZOLAM HCL 1 MG/ML 2ML VIAL ONE (15:24)
[2016-11-10] MEDS ORDERED: FENTANYL CITRATE INJ 50 MCG/1 ML 2 ML VIAL ONE (15:24)
[2016-11-10] MEDS ORDERED: BACITRACIN 50000 UNIT VIAL ONE (15:34)
[2016-11-10] MEDS ORDERED: LIDOCAINE HCL 1% 20 ML VIAL ONE (16:22)
[2016-11-10] MEDS ORDERED: PROPOFOL IV EMULSION 10 MG/ML 20 ML VIAL IV ONE (16:37)
--- NOTE | 2016-11-10 17:23 | Progress Note ---
Medicine Progress Note Date & Time of Visit: Nov 10, 2016 at 17:12. Subjective Pt was seen and examined Sitting in chair very comfortable with no distress Waiting to go to OR for toe amputation denies any chest pain, palpitation, dizziness and so Objective Last 8 Hrs Date Time Temp Pulse Resp B/P Pulse Ox O2 Delivery O2 Flow Rate FiO2 11/10/16 15:35 36.3 66 18 111/71 94 Room Air 11/10/16 14:40 69 16 95 Room Air Physical Exam: General- No acute distress Head- atraumatic Eyes- PERRL, EOMI ENT- oropharynx clear Neck- supple, no JVD Lungs- No wheezing, no crackles Heart- regular rhythm; +systolic murmur Abdomen- normal bowel sounds, soft Extremities-no calf tenderness, osteomyelitis of Right great toe Neuro- alert, oriented x 3; PERRL, EOMI; no facial palsy; no dysarthria Skin- warm & dry Laboratory Results: Last 24 Hours Test 11/09/16 20:20 11/10/16 00:49 11/10/16 04:13 11/10/16 06:00 Bedside Glucose 234 mg/dl 129 mg/dl 98 mg/dl White Blood Count 9.50 K/uL Red Blood Count 4.13 M/uL Hemoglobin 12.6 g/dL Hematocrit 38.4 % Mean Corpuscular Volume 93.0 fL Mean Corpuscular Hemoglobin 30.5 pg Mean Corpuscular Hemoglobin Concent 32.8 g/dl RDW Standard Deviation 45.9 fL RDW Coefficient of Variation 13.5 % Platelet Count 196 K/uL Mean Platelet Volume 11.0 fL Prothrombin Time 18.5 SECONDS Prothromb Time International Ratio 1.7 Sodium Level 140 mmol/L Potassium Level 3.7 mmol/L Chloride Level 106 mmol/L Carbon Dioxide Level 31 mmol/L Anion Gap 3.0 mmol/L Blood Urea Nitrogen 17 mg/dl Creatinine 0.80 mg/dl Est Creatinine Clear Calc Drug Dose 130.0 ml/min Estimated GFR () 105.6 Estimated GFR (Non- 91.1 BUN/Creatinine Ratio 21.7 Random Glucose 108 mg/dl Calcium Level 8.8 mg/dl Vancomycin Level Trough 19.7 mcg/ml Test 11/10/16 07:36 11/10/16 11:57 11/10/16 16:16 Bedside Glucose 108 mg/dl 127 mg/dl 138 mg/dl Assessment & Plan SHORTNESS OF BREATH Possible related viral URI vs bronchitis Doubt about COPD exacerbation Afebrile; no leukocytosis; saturating well on RA CXR showed bibasilar airspace opacities, likely representing atelectasis Influenza PCR negative Blood culture no growth Levaquin D/C as per ID recommendation Continue Xopenex-Atrovent nebs Clinically stable RIGHT GREAT TOE OSTEOMYELITIS/ DIABETIC ULCER Sent by Dr. Malhotra for direct admission Wound culture September 22 2016 grew enterococcus faecalis Seen by ortho Dr. Ortega- plan for amputation; Was cleared by cardiology Dr. Casillas for surgery Has been on daptomycin via PICC line as outpatient -> ? reaction to daptomycin D/c daptomycin as per ID recommendation Continue IV vancomycin as per ID As per ID will need minimum IV Vanco for 7 days post surgery will need weekly cbc, bmp, esr, vanco through Continue to follow at the wound care clinic or ID office Case discussed with Dr. Ortega yesterday that plan for surgery today Dr. Ortega will prefer the INR to be below 1.6 Vit K 5mg given last night and 2.5 mg given this morning INR 1.7 Pt is medically stable for surgery PAROXYSMAL ATRIAL FIBRILLATION Rate is controlled Continue metoprolol On Coumadin; INR 1.7 today Coumadin has been on hold since 11/07 for the procedure on Sunday will resume coumadin after surgery CAD Asymptomatic Continue beta armen Will hold Aspirin tomorrow dose for possible surgery Resume statin which was held while on daptomycin HISTORY OF ENDOCARDITIS S/p emergent MVR and AVR September 2014 in [place] Echo done on 09/21/16: * The left ventricle is normal in size. * There is mild concentric left ventricular hypertrophy. * There is mild global hypokinesis of the left ventricle. * Ejection Fraction = 45-50%. * The left atrium is mildly dilated. * There is a bioprosthetic aortic valve. * The gradient is normal for this prosthetic aortic valve. * Bioprosthetic leaflets are thin and move normally. * There is no aortic valvular vegetation. * There is a bioprosthetic mitral valve. * Bioprosthesis leaflets are thin and move normally. * There are no vegetations on this prosthetic mitral valve. * There is no mitral valve stenosis. * There is no mitral regurgitation noted. DM TYPE 2 A1c 9.4 in 08/2016 Continue basal long acting insulin NovoLog sliding scale DEPRESSION Continue Cymbalta CHRONIC NECK PAIN Continue Nucynta DVT PROPHYLAXIS INR 1.7 today Coumadin on Hold due to surgery CODE STATUS Full code Consultants: Ortho [email or web address] Current Inpatient Medications: Current Inpatient Medications Medications (Trade) Dose Ordered Sig/Eder Route Start Time Stop Time Status Last Admin Dose Admin Acetaminophen (Tylenol Tab) 650 mg Q4H PRN PO 11/06/16 16:00 12/06/16 15:59 Ondansetron HCl (Zofran Inj) 4 mg Q6H PRN IV 11/06/16 16:00 12/06/16 15:59 Vancomycin HCl (Consult) 1 ea UD PRN N/A 11/06/16 17:17 12/06/16 17:16 Insulin Aspart (novoLOG ASPART) SLIDING SCALE If C... ACHS SC 11/06/16 22:00 12/06/16 21:59 11/09/16 21:57 15 UNITS Glucose (Glucose 40% Gel) 15-30 GRAMS 15 GRAMS... UD PRN PO 11/06/16 17:00 12/06/16 16:59 Glucose (Glucose Chew Tab) 4-8 Tablets 4 Tabl... UD PRN PO 11/06/16 17:00 12/06/16 16:59 Dextrose (Dextrose 50% 50ML Syringe) 25-50ML OF 50% DW IV FOR... UD PRN IV 11/06/16 17:00 12/06/16 16:59 Glucagon (Glucagon Inj) 1 mg UD PRN SQ 11/06/16 17:00 12/06/16 16:59 Ipratropium [place] (Atrovent 0.02% 0.5MG/2.5ML Neb) 0.5 mg Q6R INH 11/06/16 21:00 12/06/16 20:59 11/10/16 14:40 0.5 MG Levalbuterol (Xopenex 1.25MG/ 0.5ML Neb) 1.25 mg Q6R INH 11/06/16 21:00 12/06/16 20:59 11/10/16 14:40 1.25 MG Ipratropium [place] (Atrovent 0.02% 0.5MG/2.5ML Neb) 0.5 mg Q2H PRN INH 11/06/16 17:30 12/06/16 17:29 Levalbuterol (Xopenex 0.63 Mg/ 3 Ml Neb) 0.63 mg Q2H PRN INH 11/06/16 17:30 12/06/16 17:29 Aspirin (Ecotrin Tab) 162 mg QAM PO 11/07/16 08:00 12/07/16 07:59 Future Hold 11/07/16 08:46 162 MG Diphenhydramine HCl (Benadryl Cap) 25 mg HS PRN PO 11/06/16 17:30 12/06/16 17:29 Duloxetine HCl (Cymbalta Cap) 30 mg DAILY PO 11/07/16 08:00 12/07/16 07:59 11/09/16 08:20 30 MG Magnesium Oxide (Mag-Ox Tab) 400 mg QAM PO 11/07/16 08:00 12/07/16 07:59 11/09/16 08:20 400 MG Metoprolol Succinate (Toprol Xl Tab) 100 mg DAILY PO 11/07/16 08:00 12/07/16 07:59 11/10/16 10:08 100 MG Nitroglycerin (Nitrostat Tab) 0.4 mg UD PRN [place] 11/06/16 17:30 12/06/16 17:29 Pantoprazole Sodium (Protonix Tab) 40 mg QAM PO 11/07/16 08:00 12/07/16 07:59 11/09/16 08:19 40 MG Tapentadol (Nucynta Tab) 50 mg Q8 PRN PO 11/06/16 17:30 11/20/16 17:29 Warfarin Sodium (Coumadin Tab) 6 mg SuMoWeThFrSa@1600 PO 11/06/16 17:30 12/06/16 17:29 Future Hold 11/06/16 20:14 6 MG Polyethylene (Miralax Powder Packet) 17 gm QAM PO 11/07/16 08:00 12/07/16 07:59 11/09/16 08:21 17 GM Tapentadol (Nucynta Er Tab) 100 mg BID PO 11/06/16 20:00 12/06/16 19:59 11/09/16 20:34 100 MG Pravastatin Sodium (Pravachol Tab) 80 mg HS PO 11/06/16 22:00 12/06/16 21:59 11/09/16 20:57 80 MG Heparin Sodium (Porcine) (Heparin 10 Unit/ ml 5 ml Flush) 5 ml PRN PRN FLUSH 11/07/16 00:30 12/07/16 00:29 11/10/16 06:06 5 ML Miscellaneous Information (Consult Glycemic Management Pharmacy) 1 ea UD PRN N/A 11/07/16 08:30 12/07/16 08:29 Insulin Aspart (novoLOG ASPART) SLIDING SCALE If C... 0000,0400 SC 11/08/16 00:00 12/08/16 00:00 11/08/16 23:48 4 UNITS Prednisone 40 mg 40 mg DAILY PO 11/07/16 18:00 12/07/16 17:59 11/09/16 08:20 40 MG Vancomycin HCl/ Sodium Chloride (Vancomycin Inj/ Nss 500ml) 538 ml @ 200 mls/hr Q10H IV 11/10/16 16:00 12/22/16 15:59 11/10/16 15:55 200 MLS/HR
[2016-11-10] MEDS ORDERED: EpHEDrine SULFATE INJ 50 MG/ML AMP IV PRN (17:30)
[2016-11-10] MEDS ORDERED: ATROPINE SULFATE 0.1 MG/ML 5ML SYR IV PRN (17:30)
--- NOTE | 2016-11-10 17:47 | [facility] Post Operative Brief Note ---
Immediate Operative Summary Operative Date Nov 10, 2016. Pre-Operative Diagnosis Right 1st Toe Osteomyelitis, Diabetic Ulcer Great toe, Claw toes Post-Operative Diagnosis Right 1st Toe Osteomyelitis, Diabetic Ulcer Great toe, Claw toes Procedure(s) Performed Right great toe partial amputation; flexor tenotomy toes; manipulation under anesthesia of the 2nd, 3rd, 4th, and 5th toes. Surgeon Dr. Ortega Athletics Director Surgeon(s) None Estimated Blood Loss 1ml Findings See dict Specimens A. Right great toe Drains None Anesthesia Sedation w/ Ankle block Complication(s) None Disposition Recovery Room / PACU
--- NOTE | 2016-11-10 17:52 | Anesthesiology Progress Note ---
Anesthesia Post Op Note Date & Time Nov 10, 2016 at 17:52 Vital Signs Pain Intensity: 0 Vital Signs Past 12 Hours Date Time Temp Pulse Resp B/P Pulse Ox O2 Delivery O2 Flow Rate FiO2 11/10/16 17:45 66 19 11/10/16 17:45 78 19 139/75 94 11/10/16 17:41 130/89 11/10/16 17:40 71 14 11/10/16 17:40 73 14 94 11/10/16 17:35 71 18 123/75 97 11/10/16 17:35 68 18 11/10/16 17:30 36.2 72 15 124/69 97 Room Air 11/10/16 17:30 66 14 11/10/16 17:30 69 14 124/69 96 11/10/16 15:35 36.3 66 18 111/71 94 Room Air 11/10/16 15:20 94 Room Air 11/10/16 14:40 69 16 95 Room Air 11/10/16 08:38 36.5 72 18 125/76 96 Room Air 11/10/16 08:00 Room Air 11/10/16 07:55 70 16 95 Room Air Notes Mental Status: alert / awake / arousable, participated in evaluation Pt Amnestic to Procedure: Yes Nausea / Vomiting: adequately controlled Pain: adequately controlled Airway Patency, RR, SpO2: stable & adequate BP & HR: stable & adequate Hydration State: stable & adequate Anesthetic Complications: no major complications apparent
[2016-11-10] MEDS: POLYETHYLENE (MIRALAX) 17 GM PACK PO SCH (18:54)
[2016-11-10] MEDS: PANTOprazole SOD 40 MG TAB PO SCH (18:54)
[2016-11-10] MEDS: DULOXETINE (CYMBALTA) 30 MG CAP PO SCH (18:54)
[2016-11-10] MEDS: MAGNESIUM OXIDE 400 MG TAB PO SCH (18:54)
[2016-11-10] MEDS: TAPENTADOL HCL 50 MG TAB PO PRN (19:04)
[2016-11-10] MEDS: PRAVASTATIN SOD 40 MG TAB PO SCH (20:14)
[2016-11-10] MEDS ORDERED: INSULIN GLARGINE SOLOSTAR 100 UNITS/ML 3 ML PEN SC SCH (22:00)
[2016-11-11] VITALS (7 sets, daily range): BP systolic 108–119; BP diastolic 66–71; PULSE 67–76; TEMP 36.4–36.9; O2SAT 91–95
[2016-11-11] MEDS: INSULIN ASPART 100 UNITS/ML 3 ML PEN SC SCH ×6 (00:10→20:49)
[2016-11-11] MEDS: VANCOMYCIN INJ 1,900 MG in SODIUM CHLORIDE 0.9% 500ML 500 ML IV SCH ×3 (01:30→21:56)
[2016-11-11] MEDS: LEVALBUTEROL 1.25MG/0.5ML NEB INH SCH ×4 (02:54→18:58)
[2016-11-11] MEDS: IPRATROPIUM BROMIDE NEB SOLN 0.02% 2.5 ML VIAL INH SCH ×4 (02:54→18:58)
[2016-11-11] MEDS: TAPENTADOL HCL 50 MG TAB PO PRN ×2 (03:30→15:42)
--- NOTE | 2016-11-11 03:58 | OPERATIVE REPORT ---
DATE OF OPERATION: 11/10/2016 PREOPERATIVE DIAGNOSES: 1. Right great toe osteomyelitis. 2. Diabetic ulcer of the great toe. 3. Clawtoe deformities of the second, third, fourth and fifth toes with flexion contractures of the proximal interphalangeal joints. POSTOPERATIVE DIAGNOSES: Same. PROCEDURES: 1. Right great toe partial amputation to the level of the mid proximal phalanx. 2. Flexor tenotomy of the second, third, fourth and fifth toes. 3. Manipulation under anesthesia of the proximal interphalangeal joints of the second, third, fourth and fifth toes. SURGEON: Dr. Ortega. AIR COMPRESSOR ENGINEER: None. ANESTHESIA: Ankle block with sedation. SPECIMENS: Partial great toe. DRAINS: None. COMPLICATIONS: None. BLOOD LOSS: 1 mL. PERTINENT HISTORY: This is a 71-year-old gentleman with significant diabetes mellitus and neuropathy. He had developed clawtoe deformities of the first, second, third, fourth and fifth toes which has been progressively worsening over the last several years. The patient then subsequently had an ulceration of his great toe and was attempting conservative management. The patient had inability to heal the ulceration on his great toe and MRI confirmed osteomyelitis of the great toe. The patient was then admitted to the hospital for another concern and during this hospital admission orthopedics was consulted, the patient was deemed to be stable for surgery and the patient was scheduled for surgery as indicated to address the above noted complaints. All potential risks, benefits, complications, alternatives, rehab, potential for incomplete relief of symptoms, need for further surgery, DVT, PE, , persistent pain, swelling, scarring, weakness, neurovascular injury, wound complications, bone fracture, need for further surgery or amputation was discussed with the patient and his , they both decided to proceed with the procedure as indicated. DESCRIPTION OF PROCEDURE: The patient was taken to the operative suite, placed supine on the operating room table. After review of the consent and identification of proper operative site, the patient was sedated. After sterile prepping the ankle, the patient underwent ankle block by the anesthesiologist. Next, the right lower extremity was then sterilely prepped and draped in usual fashion. The limb was elevated and partially exsanguinated with an Esmarch bandage and an Esmarch tourniquet was applied over sterile surgical towel at the level of the right ankle. Next, a 15-blade scalpel was used to make a racquet shaped incision at the interphalangeal level of the right great toe. Dorsal incision was carried through the skin and extensor tendon and capsule of the interphalangeal joint. Next, a longer plantar flap was developed along with the generous soft tissue pad plantar. This was directed to excise the diabetic ulcer distally. After the distal portion of the toe was excised, the distal phalanx was then disarticulated at the level of the interphalangeal joint, taking care to assure that the neurovascular bundles were still intact both medial and lateral. Next, these toe specimen was then passed off. Next, the dorsiflexion deformity of the great toe was such that care was taken to resect the condyles of the distal foot of the proximal phalanx to avoid future further ulceration dorsally and shoe wear. Next, the bone biting rongeur was used to resect the proximal phalanx of the great toe just proximal to the condyles. Next, the plantar flap was then appropriately shaped with a 15-blade scalpel. The wound was copiously irrigated with sterile normal saline and then the plantar flap was then closed with interrupted 3-0 nylon sutures without any evidence of any dog ears. Next, the attention was then directed toward the second toe plantar aspect at the PIP joint crease. A transverse incision was made in the tissue. Careful dissection was performed through the soft tissue taking care to retract and protect the neurovascular structures, revealing the flexor tendon which was then transected with a 15-blade scalpel. Next manipulation under anesthesia was performed releasing the soft tissue contractures through the proximal interphalangeal joint manually. Next, the wound was copiously irrigated with sterile normal saline and then closed using 3-0 nylon suture. Next, attention was directed toward the 3rd toe. A transverse incision was made at the level of the PIP joint plantar aspect of the 3rd toe. Careful dissection was performed with tenotomy scissors down to the level of the flexor tendon which was then identified. Appropriate retractors were placed. The wound to retract neurovascular structures and then a 15-blade scalpel was used to transect the flexor tendons. Next manipulation under anesthesia was performed of the 3rd toe proximal interphalangeal joint to release joint contractures. After this was completed, the wound was irrigated with sterile normal saline and the skin was then closed using 3-0 nylon sutures. Next, attention was then directed to the fourth toe. A transverse incision was made with a #15-blade scalpel at the level of the proximal interphalangeal joint. This incision was made with a 15-blade scalpel. Careful dissection was performed through the soft tissue to the plantar aspect of the fourth toe followed by retracting the neurovascular structures and identification of the flexor tendon, which was then transected with a 15-blade scalpel. Manipulation under anesthesia was performed to release the joint contractures of the proximal interphalangeal joint of the fourth toe. After this was completed, the wound was irrigated with sterile normal saline and the skin was closed using 3-0 nylon. Next, attention was then directed toward the fifth toe. A 15-blade scalpel was used to make transverse incisions at the proximal interphalangeal joint. Careful dissection was performed with tenotomy scissors. The neurovascular structures retracted and protected. The flexor tendon was then identified and then transected with a 15-blade scalpel. After this was completed, the wound was irrigated with sterile normal saline. Manipulation under anesthesia was performed of the fifth toe proximal interphalangeal joint to release joint contractures. Next, the skin was then closed using 3-0 nylon sutures. Next, the sterile compressive dressing was applied to the right forefoot consisting of Xeroform gauze, sterile 4 x 4s, 4 inch Webril and then a 4-inch Stu wrap. The tourniquet was released. The patient was awakened and taken to recovery in stable condition. I attest to the content of the Intraoperative Record and any orders documented therein. Any exceptio ns are noted below.
[2016-11-11 06:27] LABS: MEAN CELL VOLUME 92.3 fL (80-100); MEAN CORPUSCULAR HEMOGLOBIN 29.5 pg (25-34); MEAN CORPUSCULAR HGB CONC 31.9 g/dl (32-36); MEAN PLATELET VOLUME 11.2 fL (7.4-10.4); PLATELET COUNT 227 K/uL (130-400); RED BLOOD COUNT 4.55 M/uL (4.7-6.1); WHITE BLOOD COUNT 11.05 K/uL (4.8-10.8)
[2016-11-11 06:34] LABS: INR 1.2 (0.9-1.1); PROTHROMBIN TIME (PATIENT) 12.8 SECONDS (9.0-12.0)
[2016-11-11 07:04] LABS: BUN/CREATININE RATIO 19.8 (10-20); CALCIUM 8.9 mg/dl (8.5-10.1); CREATININE 0.85 mg/dl (0.60-1.40); POTASSIUM 4.1 mmol/L (3.5-5.1)
[2016-11-11] MEDS: TAPENTADOL ER 50 MG TABCR PO SCH ×2 (08:11→20:40)
[2016-11-11] MEDS: METOPROLOL SUCC 50MG EXT REL TAB PO SCH (08:11)
--- NOTE | 2016-11-11 08:34 | ORTHOPEDICS PROGRESS NOTE ---
DATE: 11/11/2016 CHIEF COMPLAINT AND HISTORY OF PRESENT ILLNESS: Postop day 1, toe amputation and flexor manipulation. The patient is postoperative day #1 from surgery as above. Today, he is resting comfortably in bed. He has no complaints of pain or discomfort at this time. PHYSICAL EXAMINATION: The patient is afebrile. Vital signs are stable. On examination, foot is wrapped in a heavy bulky dressing. The patient is comfortable in bed. Cannot assess neurovascular function because of the wrapping. IMPRESSION: Postop day #1 status post great toe amputation and toe manipulation stable. PLAN: We will follow dressing change and evaluation per Dr. Ortega.
[2016-11-11] MEDS: POLYETHYLENE (MIRALAX) 17 GM PACK PO SCH (08:55)
[2016-11-11] MEDS: DULOXETINE (CYMBALTA) 30 MG CAP PO SCH (08:55)
[2016-11-11] MEDS: PANTOprazole SOD 40 MG TAB PO SCH (08:55)
[2016-11-11] MEDS: MAGNESIUM OXIDE 400 MG TAB PO SCH (08:55)
--- NOTE | 2016-11-11 13:59 | Progress Note ---
Medicine Progress Note Date & Time of Visit: Nov 11, 2016 at 13:47. Subjective Pt was seen and examined Sitting in chair comfortable with no distress Only complaint of mild pain from the surgery yesterday Denies any chest pain, palpitation, dizziness and sob Objective Last 8 Hrs Date Time Temp Pulse Resp B/P Pulse Ox O2 Delivery O2 Flow Rate FiO2 11/11/16 07:47 70 16 95 Room Air 11/11/16 07:33 36.5 75 16 108/66 92 Room Air Physical Exam: General- No acute distress Head- atraumatic Eyes- PERRL, EOMI ENT- oropharynx clear Neck- supple, no JVD Lungs- No wheezing, no crackles Heart- regular rhythm; +systolic murmur Abdomen- normal bowel sounds, soft Extremities-no calf tenderness, Right foot wrap Neuro- alert, oriented x 3; PERRL, EOMI; no facial palsy; no dysarthria Skin- warm & dry Laboratory Results: Last 24 Hours Test 11/10/16 16:16 11/10/16 17:37 11/10/16 18:36 11/10/16 21:55 Bedside Glucose 138 mg/dl 131 mg/dl 140 mg/dl 224 mg/dl Test 11/11/16 00:00 11/11/16 03:31 11/11/16 05:49 11/11/16 07:47 Bedside Glucose 225 mg/dl 184 mg/dl 160 mg/dl White Blood Count 11.05 K/uL Red Blood Count 4.55 M/uL Hemoglobin 13.4 g/dL Hematocrit 42.0 % Mean Corpuscular Volume 92.3 fL Mean Corpuscular Hemoglobin 29.5 pg Mean Corpuscular Hemoglobin Concent 31.9 g/dl RDW Standard Deviation 45.4 fL RDW Coefficient of Variation 13.4 % Platelet Count 227 K/uL Mean Platelet Volume 11.2 fL Prothrombin Time 12.8 SECONDS Prothromb Time International Ratio 1.2 Sodium Level 137 mmol/L Potassium Level 4.1 mmol/L Chloride Level 102 mmol/L Carbon Dioxide Level 27 mmol/L Anion Gap 8.0 mmol/L Blood Urea Nitrogen 17 mg/dl Creatinine 0.85 mg/dl Est Creatinine Clear Calc Drug Dose 122.4 ml/min Estimated GFR () 103.0 Estimated GFR (Non- 88.9 BUN/Creatinine Ratio 19.8 Random Glucose 184 mg/dl Calcium Level 8.9 mg/dl Test 11/11/16 12:00 Bedside Glucose 198 mg/dl Assessment & Plan SHORTNESS OF BREATH Possible related viral URI vs bronchitis Doubt about COPD exacerbation Afebrile; no leukocytosis; saturating well on RA CXR showed bibasilar airspace opacities, likely representing atelectasis Influenza PCR negative Blood culture no growth Levaquin D/C as per ID recommendation Continue Xopenex-Atrovent nebs Clinically stable resolved RIGHT GREAT TOE OSTEOMYELITIS/ DIABETIC ULCER Sent by Dr. Malhotra for direct admission Wound culture September 22 2016 grew enterococcus faecalis Seen by ortho Dr. Ortega- plan for amputation; Was cleared by cardiology Dr. Casillas for surgery Has been on daptomycin via PICC line as outpatient -> ? reaction to daptomycin D/c daptomycin as per ID recommendation Continue IV vancomycin as per ID As per ID will need minimum IV Vanco for 7 days post surgery will need weekly cbc, bmp, esr, vanco through Continue to follow at the wound care clinic or ID office Case discussed with Dr. Ortega yesterday that plan for surgery today Dr. Ortega will prefer the INR to be below 1.6 Vit K 5mg given last night and 2.5 mg given this morning 11/11/16 S/P day#1 right great Toe amputation and toe manipulation by Dr. Ortega No surgical complication dressing change as per ortho Stable PAROXYSMAL ATRIAL FIBRILLATION Rate is controlled Continue metoprolol On Coumadin; INR 1.2 today Coumadin was on hold since 11/07 for the procedure. Resume Coumadin today check INR in am CAD Asymptomatic Continue beta armen Will hold Aspirin tomorrow dose for possible surgery Resume statin which was held while on daptomycin HISTORY OF ENDOCARDITIS S/p emergent MVR and AVR September 2014 in [place] Echo done on 09/21/16: * The left ventricle is normal in size. * There is mild concentric left ventricular hypertrophy. * There is mild global hypokinesis of the left ventricle. * Ejection Fraction = 45-50%. * The left atrium is mildly dilated. * There is a bioprosthetic aortic valve. * The gradient is normal for this prosthetic aortic valve. * Bioprosthetic leaflets are thin and move normally. * There is no aortic valvular vegetation. * There is a bioprosthetic mitral valve. * Bioprosthesis leaflets are thin and move normally. * There are no vegetations on this prosthetic mitral valve. * There is no mitral valve stenosis. * There is no mitral regurgitation noted. DM TYPE 2 A1c 9.4 in 08/2016 Continue basal long acting insulin NovoLog sliding scale DEPRESSION Continue Cymbalta CHRONIC NECK PAIN Continue Nucynta DVT PROPHYLAXIS INR 1.2 today Resume Coumadin today SCDs CODE STATUS Full code Consultants: Ortho ID Current Inpatient Medications: Current Inpatient Medications Medications (Trade) Dose Ordered Sig/Eder Route Start Time Stop Time Status Last Admin Dose Admin Acetaminophen (Tylenol Tab) 650 mg Q4H PRN PO 11/06/16 16:00 12/06/16 15:59 Ondansetron HCl (Zofran Inj) 4 mg Q6H PRN IV 11/06/16 16:00 12/06/16 15:59 Vancomycin HCl (Consult) 1 ea UD PRN N/A 11/06/16 17:17 12/06/16 17:16 Insulin Aspart (novoLOG ASPART) SLIDING SCALE If C... ACHS SC 11/06/16 22:00 12/06/16 21:59 11/11/16 12:53 19 UNITS Glucose (Glucose 40% Gel) 15-30 GRAMS 15 GRAMS... UD PRN PO 11/06/16 17:00 12/06/16 16:59 Glucose (Glucose Chew Tab) 4-8 Tablets 4 Tabl... UD PRN PO 11/06/16 17:00 12/06/16 16:59 Dextrose (Dextrose 50% 50ML Syringe) 25-50ML OF 50% DW IV FOR... UD PRN IV 11/06/16 17:00 12/06/16 16:59 Glucagon (Glucagon Inj) 1 mg UD PRN SQ 11/06/16 17:00 12/06/16 16:59 Ipratropium [place] (Atrovent 0.02% 0.5MG/2.5ML Neb) 0.5 mg Q6R INH 11/06/16 21:00 12/06/16 20:59 11/11/16 07:47 0.5 MG Levalbuterol (Xopenex 1.25MG/ 0.5ML Neb) 1.25 mg Q6R INH 11/06/16 21:00 12/06/16 20:59 11/11/16 07:47 1.25 MG Ipratropium [place] (Atrovent 0.02% 0.5MG/2.5ML Neb) 0.5 mg Q2H PRN INH 11/06/16 17:30 12/06/16 17:29 Levalbuterol (Xopenex 0.63 Mg/ 3 Ml Neb) 0.63 mg Q2H PRN INH 11/06/16 17:30 12/06/16 17:29 Aspirin (Ecotrin Tab) 162 mg QAM PO 11/07/16 08:00 12/07/16 07:59 Future Hold 11/07/16 08:46 162 MG Diphenhydramine HCl (Benadryl Cap) 25 mg HS PRN PO 11/06/16 17:30 12/06/16 17:29 Duloxetine HCl (Cymbalta Cap) 30 mg DAILY PO 11/07/16 08:00 12/07/16 07:59 11/11/16 08:55 30 MG Magnesium Oxide (Mag-Ox Tab) 400 mg QAM PO 11/07/16 08:00 12/07/16 07:59 11/11/16 08:55 400 MG Metoprolol Succinate (Toprol Xl Tab) 100 mg DAILY PO 11/07/16 08:00 12/07/16 07:59 11/11/16 08:11 100 MG Nitroglycerin (Nitrostat Tab) 0.4 mg UD PRN UT 11/06/16 17:30 12/06/16 17:29 Pantoprazole Sodium (Protonix Tab) 40 mg QAM PO 11/07/16 08:00 12/07/16 07:59 11/11/16 08:55 40 MG Tapentadol (Nucynta Tab) 50 mg Q8 PRN PO 11/06/16 17:30 11/20/16 17:29 11/11/16 03:30 50 MG Warfarin Sodium (Coumadin Tab) 6 mg SuMoWeThFrSa@1600 PO 11/06/16 17:30 12/06/16 17:29 Future Hold 11/06/16 20:14 6 MG Polyethylene (Miralax Powder Packet) 17 gm QAM PO 11/07/16 08:00 12/07/16 07:59 11/11/16 08:55 17 GM Tapentadol (Nucynta Er Tab) 100 mg BID PO 11/06/16 20:00 12/06/16 19:59 11/11/16 08:11 100 MG Pravastatin Sodium (Pravachol Tab) 80 mg HS PO 11/06/16 22:00 12/06/16 21:59 11/10/16 20:14 80 MG Heparin Sodium (Porcine) (Heparin 10 Unit/ ml 5 ml Flush) 5 ml PRN PRN FLUSH 11/07/16 00:30 12/07/16 00:29 11/11/16 05:46 5 ML Miscellaneous Information (Consult Glycemic Management Pharmacy) 1 ea UD PRN N/A 11/07/16 08:30 12/07/16 08:29 Insulin Aspart (novoLOG ASPART) SLIDING SCALE If C... 0000,0400 SC 11/08/16 00:00 12/08/16 00:00 11/11/16 03:34 7 UNITS Prednisone 40 mg 40 mg DAILY PO 11/07/16 18:00 12/07/16 17:59 11/11/16 08:55 40 MG Vancomycin HCl/ Sodium Chloride (Vancomycin Inj/ Nss 500ml) 538 ml @ 200 mls/hr Q10H IV 11/10/16 16:00 12/22/16 15:59 11/11/16 12:51 200 MLS/HR Insulin Glargine (Lantus Solostar Pen) 15 unit HS SC 11/10/16 22:00 12/10/16 21:59 11/10/16 22:19 15 UNIT
[2016-11-11] MEDS: WARFARIN SOD 6 MG TAB PO SCH (17:21)
[2016-11-11] MEDS: PRAVASTATIN SOD 40 MG TAB PO SCH (20:40)
[2016-11-11] MEDS: INSULIN GLARGINE SOLOSTAR 100 UNITS/ML 3 ML PEN SC SCH (20:49)
[2016-11-12] VITALS (7 sets, daily range): BP systolic 102–148; BP diastolic 65–81; PULSE 64–98; TEMP 36.4–36.7; O2SAT 92–96
[2016-11-12] MEDS ORDERED: INSULIN ASPART 100 UNITS/ML 3 ML PEN SC ONE (02:00)
[2016-11-12] MEDS: IPRATROPIUM BROMIDE NEB SOLN 0.02% 2.5 ML VIAL INH SCH ×4 (02:23→19:00)
[2016-11-12] MEDS: LEVALBUTEROL 1.25MG/0.5ML NEB INH SCH ×4 (02:23→19:00)
[2016-11-12 06:16] LABS: HEMATOCRIT 40.6 % (42-52); MEAN CELL VOLUME 92.3 fL (80-100); MEAN CORPUSCULAR HEMOGLOBIN 30.5 pg (25-34); MEAN PLATELET VOLUME 11.3 fL (7.4-10.4); PLATELET COUNT 230 K/uL (130-400); WHITE BLOOD COUNT 11.88 K/uL (4.8-10.8)
[2016-11-12 06:26] LABS: INR 1.1 (0.9-1.1)
[2016-11-12 06:46] LABS: BUN/CREATININE RATIO 18.6 (10-20); CALCIUM 8.9 mg/dl (8.5-10.1); CREATININE 0.79 mg/dl (0.60-1.40); POTASSIUM 3.7 mmol/L (3.5-5.1)
[2016-11-12] MEDS ORDERED: VANCOMYCIN TROUGH SCH (07:30)
[2016-11-12] MEDS: VANCOMYCIN INJ 1,900 MG in SODIUM CHLORIDE 0.9% 500ML 500 ML IV SCH ×2 (08:22→18:17)
[2016-11-12] MEDS: DULOXETINE (CYMBALTA) 30 MG CAP PO SCH (08:23)
[2016-11-12] MEDS: POLYETHYLENE (MIRALAX) 17 GM PACK PO SCH (08:23)
[2016-11-12] MEDS: MAGNESIUM OXIDE 400 MG TAB PO SCH (08:23)
[2016-11-12] MEDS: TAPENTADOL ER 50 MG TABCR PO SCH ×2 (08:24→20:45)
[2016-11-12] MEDS: METOPROLOL SUCC 50MG EXT REL TAB PO SCH (08:24)
[2016-11-12] MEDS: PANTOprazole SOD 40 MG TAB PO SCH (08:24)
[2016-11-12] MEDS: INSULIN ASPART 100 UNITS/ML 3 ML PEN SC SCH ×4 (08:30→20:56)
--- NOTE | 2016-11-12 09:23 | Orthopedic Progress Note ---
Orthopedic Progress Note Date of Service Nov 12, 2016. Subjective Post OP Day: 2 Reports: feeling well, pain controlled w PO medications, Denies: SOB, calf pain , chest pain, complaints, light headedness, nausea / vomiting Objective calves soft nontender, N/V intact, dressing C/D/I, incision C/D/I, A&O x3, toes mobile Incisions c/d/i, mild erythema gr toe, no drainage. Date Time Temp Pulse Resp B/P Pulse Ox O2 Delivery O2 Flow Rate FiO2 11/12/16 07:53 64 16 95 Room Air 11/12/16 07:31 36.4 65 18 126/72 94 Room Air 11/11/16 23:40 Room Air 11/11/16 23:06 36.9 76 20 114/68 94 Room Air 11/11/16 18:58 73 16 93 Room Air 11/11/16 16:00 Room Air 11/11/16 15:20 36.4 67 18 119/71 91 Room Air 11/11/16 14:26 Room Air 11/11/16 14:19 76 16 94 Room Air Laboratory Results 24 Hours: Test 11/12/16 05:44 Hematocrit 40.6 % Hemoglobin 13.4 g/dL Prothromb Time International Ratio 1.1 Prothrombin Time 12.0 SECONDS Assessment & Plan Assessment: POD #2, Lt foot Gr toe amputation Plan: On IV Vancomycin Dressing change today by me. Patient has a boot he may use to ambulate. Disposition per primary service, will have to f/u with Dr. Ortega 10-12 days post op at [facility] [place], .
--- NOTE | 2016-11-12 12:02 | Pharmacy Progress Note ---
Glycemic: Assessment & Plan Date of Service Nov 12, 2016. Assessment & Plan Assessment * BSG's ranging 122-240 mg/dL over the last 24 hours * Changes in stressors * Prednisone tapered from 40 to 20 mg po daily, starting today. * Patient is post-op day 2 s/p great toe amputation * AM fasting BSG good at 122 mg/dL. However, will decrease Lantus slightly 2nd changes in stressors * OK to keep Novolog as-is for now despite post-prandial elevations in BSG. Expect changes in stressors to help with better BSG control Plan * Basal insulin: Decrease Lantus 12 units SC HS (1/2 dose for BSG < 120 mg/dL) * Correctional Insulin: Novolog Correction per scale ACHS Goal Range: Low 110 mg/dL - High 140 mg/dL Correction Factor: 15 mg/dL/unit * Prandial insulin: Per carb ratio of 1 unit per 5 grams CHO consumed Pharmacy will continue to monitor patient daily and write orders per [facility] inpatient glycemic control protocol. Thanks. * Please note that the plan above was derived based on current level of insulin resistance and hospital stress. These recommendations are appropriate for inpatient admission only. Plan of care upon discharge will need to be reassessed to avoid potential outpatient hypo/hyperglycemia.
--- NOTE | 2016-11-12 12:32 | Pharmacy Progress Note ---
Pharmacy Antibiotic Prog Note Date of Service Nov 12, 2016. Subjective The patient is currently receiving vancomycin 1900 mg iv q 10 hrs for osteomyelitis The patient is currently on day # 7 of IV therapy. Objective Height (Feet): 6 Height (Inches): 4.00 Weight (Kilograms): 133.600 Levels: Item Value Date Time Vancomycin Level Trough 17.8 mcg/ml 11/12/16 0737 Vancomycin Level Trough 19.7 mcg/ml 11/10/16 0600 Vancomycin Level Trough 12.9 mcg/ml 11/08/16 1001 Lab Results (24hrs): Laboratory Tests Test 11/12/16 05:44 BUN/Creatinine Ratio 18.6 Blood Urea Nitrogen 15 mg/dl Creatinine 0.79 mg/dl White Blood Count 11.88 K/uL Assessment & Plan Patient receiving vancomycin for osteomyelitis of right toe, now s/p amputation. Per ID will need min of 7 days postop from 11/10. Vancomycin: * Trough level this am was therapeutic at ~17.8 mcg/ml (goal 15-20 mcg/ml for osteomyelitis) * Will continue with current regimen, Scr remains stable today at 0.79 mg/dL ( CrCl >100 ml/min) * Will plan to recheck trough in next 2-3 days or sooner if renal function changes (note patient has increased BMI>35 kg/m2 so concern for drug accumulation) Pharmacy will continue to follow and will adjust dose/frequency as necessary. Thank you
[2016-11-12] MEDS: WARFARIN SOD 6 MG TAB PO SCH (15:51)
--- NOTE | 2016-11-12 17:41 | Progress Note ---
Medicine Progress Note Date & Time of Visit: Nov 12, 2016 at 17:31. Subjective Pt was seen and examined sitting in chair very comfortable eating lunch Pt said that he feels fine denies any chest pain, palpitation, dizziness and sob Objective Last 8 Hrs Date Time Temp Pulse Resp B/P Pulse Ox O2 Delivery O2 Flow Rate FiO2 11/12/16 16:00 Room Air 11/12/16 14:49 36.5 64 20 102/65 92 11/12/16 14:27 65 16 93 Room Air 11/12/16 11:04 95 Room Air Physical Exam: General- No acute distress Head- atraumatic Eyes- PERRL, EOMI ENT- oropharynx clear Neck- supple, no JVD Lungs- No wheezing, no crackles Heart- regular rhythm; +systolic murmur Abdomen- normal bowel sounds, soft Extremities-no calf tenderness, Right foot wrap Neuro- alert, oriented x 3; PERRL, EOMI; no facial palsy; no dysarthria Skin- warm & dry Laboratory Results: Last 24 Hours Test 11/11/16 20:31 11/12/16 01:58 11/12/16 05:44 11/12/16 07:37 Bedside Glucose 240 mg/dl 158 mg/dl White Blood Count 11.88 K/uL Red Blood Count 4.40 M/uL Hemoglobin 13.4 g/dL Hematocrit 40.6 % Mean Corpuscular Volume 92.3 fL Mean Corpuscular Hemoglobin 30.5 pg Mean Corpuscular Hemoglobin Concent 33.0 g/dl RDW Standard Deviation 45.4 fL RDW Coefficient of Variation 13.6 % Platelet Count 230 K/uL Mean Platelet Volume 11.3 fL Prothrombin Time 12.0 SECONDS Prothromb Time International Ratio 1.1 Sodium Level 142 mmol/L Potassium Level 3.7 mmol/L Chloride Level 105 mmol/L Carbon Dioxide Level 29 mmol/L Anion Gap 8.0 mmol/L Blood Urea Nitrogen 15 mg/dl Creatinine 0.79 mg/dl Est Creatinine Clear Calc Drug Dose 131.7 ml/min Estimated GFR () 106.2 Estimated GFR (Non- 91.6 BUN/Creatinine Ratio 18.6 Random Glucose 127 mg/dl Calcium Level 8.9 mg/dl Vancomycin Level Trough 17.8 mcg/ml Test 11/12/16 07:55 11/12/16 11:46 11/12/16 16:06 Bedside Glucose 122 mg/dl 166 mg/dl 185 mg/dl Assessment & Plan SHORTNESS OF BREATH Possible related viral URI vs bronchitis Doubt about COPD exacerbation Afebrile; no leukocytosis; saturating well on RA CXR showed bibasilar airspace opacities, likely representing atelectasis Influenza PCR negative Blood culture no growth Levaquin D/C as per ID recommendation steroid taper Continue Xopenex-Atrovent nebs Clinically stable resolved RIGHT GREAT TOE OSTEOMYELITIS/ DIABETIC ULCER Sent by Dr. Malhotra for direct admission Wound culture September 22 2016 grew enterococcus faecalis Seen by ortho Dr. Ortega- plan for amputation; Was cleared by cardiology Dr. Casillas for surgery Has been on daptomycin via PICC line as outpatient -> ? reaction to daptomycin D/c daptomycin as per ID recommendation Continue IV vancomycin as per ID As per ID will need minimum IV Vanco for 7 days post surgery will need weekly cbc, bmp, esr, vanco through Continue to follow at the wound care clinic or ID office Case discussed with Dr. Ortega yesterday that plan for surgery today Dr. Ortega will prefer the INR to be below 1.6 Vit K 5mg given last night and 2.5 mg given this morning 11/12/16 S/P day#2 right great Toe amputation and toe manipulation by Dr. Ortega No surgical complication dressing change as per ortho will talk to rifle case repairer to arrange for abx infusion for IV vanco Continue follow with wound care outpatient Follow up appt with ortho btw 10 to 12 days. Stable PAROXYSMAL ATRIAL FIBRILLATION Rate is controlled Continue metoprolol On Coumadin; INR 1.1 today Coumadin was on hold for the procedure. Continue Coumadin check INR in am CAD Asymptomatic Continue beta armen Will hold Aspirin tomorrow dose for possible surgery Resume statin which was held while on daptomycin HISTORY OF ENDOCARDITIS S/p emergent MVR and AVR September 2014 in [place] Echo done on 09/21/16: * The left ventricle is normal in size. * There is mild concentric left ventricular hypertrophy. * There is mild global hypokinesis of the left ventricle. * Ejection Fraction = 45-50%. * The left atrium is mildly dilated. * There is a bioprosthetic aortic valve. * The gradient is normal for this prosthetic aortic valve. * Bioprosthetic leaflets are thin and move normally. * There is no aortic valvular vegetation. * There is a bioprosthetic mitral valve. * Bioprosthesis leaflets are thin and move normally. * There are no vegetations on this prosthetic mitral valve. * There is no mitral valve stenosis. * There is no mitral regurgitation noted. DM TYPE 2 A1c 9.4 in 08/2016 Continue basal long acting insulin NovoLog sliding scale DEPRESSION Continue Cymbalta CHRONIC NECK PAIN Continue Nucynta DVT PROPHYLAXIS INR 1.1 today Continue Coumadin Starting on heparin subq SCDs CODE STATUS Full code DISPOSITION Will need IV Vanco for at least 7days Follow up with wound care follow up with ortho Follow up with ID Consultants: Ortho ID Current Inpatient Medications: Current Inpatient Medications Medications (Trade) Dose Ordered Sig/Eder Route Start Time Stop Time Status Last Admin Dose Admin Acetaminophen (Tylenol Tab) 650 mg Q4H PRN PO 11/06/16 16:00 12/06/16 15:59 Ondansetron HCl (Zofran Inj) 4 mg Q6H PRN IV 11/06/16 16:00 12/06/16 15:59 11/12/16 09:14 4 MG Vancomycin HCl (Consult) 1 ea UD PRN N/A 11/06/16 17:17 12/06/16 17:16 Insulin Aspart (novoLOG ASPART) SLIDING SCALE If C... ACHS SC 11/06/16 22:00 12/06/16 21:59 11/12/16 12:27 16 UNITS Glucose (Glucose 40% Gel) 15-30 GRAMS 15 GRAMS... UD PRN PO 11/06/16 17:00 12/06/16 16:59 Glucose (Glucose Chew Tab) 4-8 Tablets 4 Tabl... UD PRN PO 11/06/16 17:00 12/06/16 16:59 Dextrose (Dextrose 50% 50ML Syringe) 25-50ML OF 50% DW IV FOR... UD PRN IV 11/06/16 17:00 12/06/16 16:59 Glucagon (Glucagon Inj) 1 mg UD PRN SQ 11/06/16 17:00 12/06/16 16:59 Ipratropium [place] (Atrovent 0.02% 0.5MG/2.5ML Neb) 0.5 mg Q6R INH 11/06/16 21:00 12/06/16 20:59 11/12/16 14:27 0.5 MG Levalbuterol (Xopenex 1.25MG/ 0.5ML Neb) 1.25 mg Q6R INH 11/06/16 21:00 12/06/16 20:59 11/12/16 14:27 1.25 MG Ipratropium [place] (Atrovent 0.02% 0.5MG/2.5ML Neb) 0.5 mg Q2H PRN INH 11/06/16 17:30 12/06/16 17:29 Levalbuterol (Xopenex 0.63 Mg/ 3 Ml Neb) 0.63 mg Q2H PRN INH 11/06/16 17:30 12/06/16 17:29 Aspirin (Ecotrin Tab) 162 mg QAM PO 11/07/16 08:00 12/07/16 07:59 Future Hold 11/07/16 08:46 162 MG Diphenhydramine HCl (Benadryl Cap) 25 mg HS PRN PO 11/06/16 17:30 12/06/16 17:29 Duloxetine HCl (Cymbalta Cap) 30 mg DAILY PO 11/07/16 08:00 12/07/16 07:59 11/12/16 08:23 30 MG Magnesium Oxide (Mag-Ox Tab) 400 mg QAM PO 11/07/16 08:00 12/07/16 07:59 11/12/16 08:23 400 MG Metoprolol Succinate (Toprol Xl Tab) 100 mg DAILY PO 11/07/16 08:00 12/07/16 07:59 11/12/16 08:24 100 MG Nitroglycerin (Nitrostat Tab) 0.4 mg UD PRN [place] 11/06/16 17:30 12/06/16 17:29 Pantoprazole Sodium (Protonix Tab) 40 mg QAM PO 11/07/16 08:00 12/07/16 07:59 11/12/16 08:24 40 MG Tapentadol (Nucynta Tab) 50 mg Q8 PRN PO 11/06/16 17:30 11/20/16 17:29 11/11/16 15:42 50 MG Warfarin Sodium (Coumadin Tab) 6 mg SuMoWeThFrSa@1600 PO 4/24/17 17:30 12/06/16 17:29 Future hold 11/12/16 15:51 6 MG Polyethylene (Miralax Powder Packet) 17 gm QAM PO 11/07/16 08:00 12/07/16 07:59 11/12/16 08:23 17 GM Tapentadol (Nucynta Er Tab) 100 mg BID PO 11/06/16 20:00 12/06/16 19:59 11/12/16 08:24 100 MG Pravastatin Sodium (Pravachol Tab) 80 mg HS PO 11/06/16 22:00 12/06/16 21:59 11/11/16 20:40 80 MG Heparin Sodium (Porcine) (Heparin 10 Unit/ ml 5 ml Flush) 5 ml PRN PRN FLUSH 11/07/16 00:30 12/07/16 00:29 11/12/16 07:40 5 ML Miscellaneous Information 1 ea 1 ea UD PRN N/A 11/07/16 08:30 12/07/16 08:29 Vancomycin HCl/ Sodium Chloride (Vancomycin Inj/ Nss 500ml) 538 ml @ 200 mls/hr Q10H IV 11/10/16 16:00 12/22/16 15:59 11/12/16 08:22 200 MLS/HR Prednisone (PredniSONE TAB) 20 mg DAILY PO 11/12/16 08:00 12/12/16 07:59 11/12/16 08:24 20 MG Warfarin Sodium (Coumadin Tab) 3 mg Tu@1600 PO 11/14/16 16:00 12/14/16 15:59 Insulin Glargine (Lantus Solostar Pen) HS SC 11/11/16 22:00 12/11/16 21:59 11/11/16 20:49 15 UNIT
[2016-11-12] MEDS: TAPENTADOL HCL 50 MG TAB PO PRN (18:22)
[2016-11-12] MEDS: PRAVASTATIN SOD 40 MG TAB PO SCH (20:45)
[2016-11-12] MEDS: INSULIN GLARGINE SOLOSTAR 100 UNITS/ML 3 ML PEN SC SCH (20:57)
[2016-11-12] MEDS: HEPARIN SOD 5000 UNIT/0.5 ML CARP SQ SCH (20:57)
[2016-11-13] MEDS: IPRATROPIUM BROMIDE NEB SOLN 0.02% 2.5 ML VIAL INH SCH ×3 (01:59→13:49)
[2016-11-13] MEDS: LEVALBUTEROL 1.25MG/0.5ML NEB INH SCH ×3 (02:00→13:49)
[2016-11-13] MEDS: VANCOMYCIN INJ 1,900 MG in SODIUM CHLORIDE 0.9% 500ML 500 ML IV SCH ×2 (04:30→13:47)
[2016-11-13 06:12] LABS: INR 1.1 (0.9-1.1)
[2016-11-13] MEDS: HEPARIN SOD 5000 UNIT/0.5 ML CARP SQ SCH ×2 (06:21→13:50)
[2016-11-13 07:15] VITALS: PULSE 67; O2SAT 91
--- NOTE | 2016-11-13 08:21 | Anesthesiology Progress Note ---
Anesthesia Post Op Note Date & Time November 13, 2016 at 08:20 Vital Signs Vital Signs Past 12 Hours Date Time Temp Pulse Resp B/P Pulse Ox O2 Delivery O2 Flow Rate FiO2 11/13/16 07:15 67 16 91 Room Air 11/13/16 00:00 Room Air 11/12/16 23:05 36.7 69 20 148/81 96 Room Air Notes Mental Status: alert / awake / arousable, participated in evaluation Pt Amnestic to Procedure: Yes Nausea / Vomiting: adequately controlled Pain: adequately controlled Airway Patency, RR, SpO2: stable & adequate BP & HR: stable & adequate Hydration State: stable & adequate Anesthetic Complications: no major complications apparent
[2016-11-13] MEDS: INSULIN ASPART 100 UNITS/ML 3 ML PEN SC SCH ×3 (09:12→17:41)
[2016-11-13] MEDS: POLYETHYLENE (MIRALAX) 17 GM PACK PO SCH (09:13)
[2016-11-13] MEDS: DULOXETINE (CYMBALTA) 30 MG CAP PO SCH (09:13)
[2016-11-13] MEDS: MAGNESIUM OXIDE 400 MG TAB PO SCH (09:13)
[2016-11-13] MEDS: METOPROLOL SUCC 50MG EXT REL TAB PO SCH (09:14)
[2016-11-13] MEDS: TAPENTADOL ER 50 MG TABCR PO SCH (09:14)
[2016-11-13] MEDS: PANTOprazole SOD 40 MG TAB PO SCH (09:14)
[2016-11-13 09:31] VITALS: BP 136/81; PULSE 67; TEMP 36.5; O2SAT 91
--- NOTE | 2016-11-13 09:33 | Progress Note ---
Subjective Date of Service: November 13, 2016. Subjective pt oob to chair, eating breakfast. s/p partial amp right first toe. blood culture negative and final. tolerating vanco, picc remains in place. afebrile.wbc 11.8. pain controlled, no fevers. remaining negative. Objective Vital Signs Date Time Temp Pulse Resp B/P Pulse Ox O2 Delivery O2 Flow Rate FiO2 11/13/16 07:15 67 16 91 Room Air 11/13/16 00:00 Room Air 11/12/16 23:05 36.7 69 20 148/81 96 Room Air 11/12/16 19:00 98 16 93 Room Air 11/12/16 16:00 Room Air 11/12/16 14:49 36.5 64 20 102/65 92 11/12/16 14:27 65 16 93 Room Air 11/12/16 11:04 95 Room Air Physical Exam General Appearance: WD/WN, no apparent distress Respiratory/Chest: normal breath sounds, no respiratory distress Cardiovascular: no edema Neurologic/Psychiatric: alert, oriented x 3 Skin: normal color Laboratory Results Item Value Date Time Blood Culture - Final Complete 11/06/16 1635 Blood NO GROWTH Blood Culture - Final Complete 11/06/16 1625 Blood NO GROWTH Last 24 Hours Test 11/12/16 11:46 11/12/16 16:06 11/12/16 19:59 11/13/16 00:04 Bedside Glucose 166 mg/dl 185 mg/dl 189 mg/dl 122 mg/dl Test 11/13/16 05:45 Prothrombin Time 12.0 SECONDS Prothromb Time International Ratio 1.1 Creatinine 1.00 mg/dl Est Creatinine Clear Calc Drug Dose 104.0 ml/min Estimated GFR () 88.6 Estimated GFR (Non- 76.5 Assessment and Plan (1) Osteomyelitis Assessment & Plan: s/p partial amp 11/11, tolerated well. will need min 7 days post surgery abx, continue with vanco upon d/c. did not tolerating dapto. picc already in place. will need follow up at wound center or ID office post d/c to discuss need for potential extension of abx. will need weekly cbc, chem 12, esr , vanco torugh (maintain 15-20) while on abx. will follow.
--- NOTE | 2016-11-13 10:05 | Pharmacy Progress Note ---
Glycemic Control: Progress Nt Date of Service November 13, 2016. Scope Glycemic Pharmacist consulted by Dr Hdz on 11/07/16 for glycemic control and to write orders per [facility] inpatient glycemic control protocol. Objective Accuchecks BSG (last 24hrs): Test 11/12/16 11:46 11/12/16 16:06 11/12/16 19:59 11/13/16 00:04 Bedside Glucose 166 mg/dl (70-99) 185 mg/dl (70-99) 189 mg/dl (70-99) 122 mg/dl (70-99) Laboratory Data (last 24hrs) Test 11/13/16 05:45 Creatinine 1.00 mg/dl HbA1c: Test 11/08/16 05:50 Hemoglobin A1c 9.3 % (4.5-5.6) H Recent Pertinent Medications Outpatient Anti-diabetic Regimen: * Levemir 15 units SQ HS * A1c = 9.3 % 11/08/16 The patient is currently receiving: * Basal insulin: Lantus 12 units every 24 hours given at bedtime * Correctional Insulin: Novolog Correction per scale ACHS Goal Range: Low 110 mg/dL - High 140 mg/dL Correction Factor: 15 mg/dL/unit * Prandial insulin: Per carb ratio of 1 unit per 5 grams CHO consumed Risk Factors for Insulin Resistance: * Steroids * Infection * Recent Surgery * Diet Assessment & Plan ASSESSMENT: * Patient is currently receiving decreasing total daily dose of insulin per day d/t step down in steroid dosing. * 11/07: 132 units of insulin per day while on SoluMedrol 40mg IV Q8hrs (BSGs ranging 251 - 314) * 11/08: 158 units of insulin per day while on Prednisone 40mg/day (Day 1 of step down) (BSGs ranging 188-241) * 11/09: 104 units of insulin per day while on Prednisone 40mg/day (BSGs ranging 80-234) * 11/10: 45 units of insulin per day while on Prednisone 40mg/day (BSGs ranging 98-225) Reduced total daily dose 11/10 d/t NPO for OR * 11/11: 90 units of insulin per day while on Prednisone 40mg/day (BSGs ranging 160-240) * 11/12: 62 units of insulin per day while on Prednisone 20mg/day (Day 1 of step down) (BSGs ranging 122-189) * 5/: Risk factors for insulin resistance are decreasing over the past 24hrs * Expect total daily dose to be ~ 50-60 units/day. Pt still ordered prednisone 20mg PO daily. Ordered a T2DM diet. * Steroid dosing unchanged - continues at 20mg daily * Infection is being adequately treated/Pt status improving * Now POD # 3 s/p surgery * Anticipating changes needed to insulin regimen include: * AM Fasting BSG = 134mg/dl, this is in range, no changes needed to basal insulin dosing * Steroid dosing decreased, should improve post-prandial BSGs with this step down in steroid dosing. May consider loosening CF/CR * ADA & AACE recommend a goal blood sugar range 140-180 mg/dl for the majority of critically ill & non-critically ill patients. However, more stringent targets may be selected in individual cases. Will utilize more stringent goal of 110-140mg/dl based on patient age & comorbidities. Additionally, tighter glycemic control is warranted to facilitate wound/infection healing. PLAN FOR INPATIENT GLYCEMIC CONTROL: * Basal insulin * No change to Lantus dosing, continue Lantus 12 units SQ HS * Bolus Insulin, Novolog per scale ACHS or Q6hrs while NPO * Goal Range: Low 110 mg/dL - High 140 mg/dL * Correction Factor: 15 mg/dL/unit * Nutritional / Prandial insulin per carb ratio of 1 unit per 5 grams CHO consumed * Consider loosening CF/CR if post prandial BSGS trend downwards today. May consider changing to 20/7 if warranted. * Continue to titrate insulin regime with each step down in steroid dosing RECOMMENDATIONS FOR DISCHARGE: * Awaited - difficult to determine needs off of steroids at this time. * A1c is 9.3% additional antidiabetic agent will be needed at discharge. Goal A1c is around 7-8%. Pt is only on basal insulin as an outpatient and will need prandial coverage. * Mr. Sandra is not open to addition of NovoLog * Is agreeable to increasing Levemir as needed * questionable addition of metformin or GLP1? * Please note that the plan above was derived based on current level of insulin resistance and hospital stress. These recommendations are appropriate for inpatient admission only. Plan of care upon discharge will need to be reassessed to avoid potential outpatient hypo/hyperglycemia. Thank you.
--- NOTE | 2016-11-13 10:48 | Progress Note ---
Medicine Progress Note Date & Time of Visit: November 13, 2016 at 10:37. Subjective Pt was seen and examined Sitting in chair comfortable with no distress Pt said that he feels fine he said that he had PT done this morning and he did fine he denies any chest pain, palpitation, dizziness and sob Objective Last 8 Hrs Date Time Temp Pulse Resp B/P Pulse Ox O2 Delivery O2 Flow Rate FiO2 11/13/16 09:31 36.5 67 20 136/81 91 Room Air 11/13/16 07:15 67 16 91 Room Air Physical Exam: General- No acute distress Head- atraumatic Eyes- PERRL, EOMI ENT- oropharynx clear Neck- supple, no JVD Lungs- No wheezing, no crackles Heart- regular rhythm; +systolic murmur Abdomen- normal bowel sounds, soft Extremities-no calf tenderness, Right foot wrap Neuro- alert, oriented x 3; PERRL, EOMI; no facial palsy; no dysarthria Skin- warm & dry Laboratory Results: Last 24 Hours Test 11/12/16 11:46 11/12/16 16:06 11/12/16 19:59 11/13/16 00:04 Bedside Glucose 166 mg/dl 185 mg/dl 189 mg/dl 122 mg/dl Test 11/13/16 05:45 11/13/16 08:13 Prothrombin Time 12.0 SECONDS Prothromb Time International Ratio 1.1 Creatinine 1.00 mg/dl Est Creatinine Clear Calc Drug Dose 104.0 ml/min Estimated GFR () 88.6 Estimated GFR (Non- 76.5 Bedside Glucose 134 mg/dl Assessment & Plan SHORTNESS OF BREATH Possible related viral URI vs bronchitis Doubt about COPD exacerbation Afebrile; no leukocytosis; saturating well on RA CXR showed bibasilar airspace opacities, likely representing atelectasis Influenza PCR negative Blood culture no growth Levaquin D/C as per ID recommendation steroid taper Continue Xopenex-Atrovent nebs Clinically stable resolved RIGHT GREAT TOE OSTEOMYELITIS/ DIABETIC ULCER Sent by Dr. Malhotra for direct admission Wound culture September 22 2016 grew enterococcus faecalis Seen by ortho Dr. Ortega- plan for amputation; Was cleared by cardiology Dr. Casillas for surgery Has been on daptomycin via PICC line as outpatient -> ? reaction to daptomycin D/c daptomycin as per ID recommendation Continue IV vancomycin as per ID As per ID will need minimum IV Vanco for 7 days post surgery will need weekly cbc, bmp, esr, vanco through Continue to follow at the wound care clinic or ID office Case discussed with Dr. Ortega yesterday that plan for surgery today Dr. Otrega will prefer the INR to be below 1.6 Vit K 5mg given last night and 2.5 mg given this morning 11/13/16 S/P day#3 right great Toe amputation and toe manipulation by Dr. Ortega No surgical complication dressing change as per ortho Outpatient abx infusion for IV vanco arranged by project development manager Appreciated pharmacy input, adjusted Vanco dose to 2.1g q12hr (Run btw 2-3 hrs) Will do weekly CBC, CMP, ESR and Vanco through (maintain btw 15 t0 20) Continue follow with wound care outpatient Follow up appt with ortho in 10 to 12 days. Follow up with ID in 1 week Case discussed with Dr. Malhotra Stable PAROXYSMAL ATRIAL FIBRILLATION Rate is controlled Continue metoprolol On Coumadin; INR 1.1 today Coumadin was on hold for the procedure. Continue Coumadin Follow up with the coag clinic for INR CAD Asymptomatic Continue beta armen Will hold Aspirin tomorrow dose for possible surgery Resume statin which was held while on daptomycin HISTORY OF ENDOCARDITIS S/p emergent MVR and AVR September 2014 in [place] Echo done on 09/21/16: * The left ventricle is normal in size. * There is mild concentric left ventricular hypertrophy. * There is mild global hypokinesis of the left ventricle. * Ejection Fraction = 45-50%. * The left atrium is mildly dilated. * There is a bioprosthetic aortic valve. * The gradient is normal for this prosthetic aortic valve. * Bioprosthetic leaflets are thin and move normally. * There is no aortic valvular vegetation. * There is a bioprosthetic mitral valve. * Bioprosthesis leaflets are thin and move normally. * There are no vegetations on this prosthetic mitral valve. * There is no mitral valve stenosis. * There is no mitral regurgitation noted. DM TYPE 2 A1c 9.4 in 08/2016 Continue basal long acting insulin NovoLog sliding scale DEPRESSION Continue Cymbalta CHRONIC NECK PAIN Continue Nucynta DVT PROPHYLAXIS INR 1.1 today Continue Coumadin heparin subq SCDs CODE STATUS Full code DISPOSITION Will need IV Vanco for at least 7days Follow up with wound care follow up with ortho Follow up with ID Consultants: Ortho ID Procedures: S/P Right great Toe amputation and toe manipulation by Dr. Ortega Current Inpatient Medications: Current Inpatient Medications Medications (Trade) Dose Ordered Sig/Eder Route Start Time Stop Time Status Last Admin Dose Admin Acetaminophen (Tylenol Tab) 650 mg Q4H PRN PO 11/06/16 16:00 12/06/16 15:59 Ondansetron HCl (Zofran Inj) 4 mg Q6H PRN IV 11/06/16 16:00 12/06/16 15:59 11/12/16 09:14 4 MG Vancomycin HCl (Consult) 1 ea UD PRN N/A 11/06/16 17:17 12/06/16 17:16 Insulin Aspart (novoLOG ASPART) SLIDING SCALE If C... ACHS SC 11/06/16 22:00 12/06/16 21:59 11/13/16 09:12 13 UNITS Glucose (Glucose 40% Gel) 15-30 GRAMS 15 GRAMS... UD PRN PO 11/06/16 17:00 12/06/16 16:59 Glucose (Glucose Chew Tab) 4-8 Tablets 4 Tabl... UD PRN PO 11/06/16 17:00 12/06/16 16:59 Dextrose (Dextrose 50% 50ML Syringe) 25-50ML OF 50% DW IV FOR... UD PRN IV 11/06/16 17:00 12/06/16 16:59 Glucagon (Glucagon Inj) 1 mg UD PRN SQ 11/06/16 17:00 12/06/16 16:59 Ipratropium [place] (Atrovent 0.02% 0.5MG/2.5ML Neb) 0.5 mg Q6R INH 11/06/16 21:00 12/06/16 20:59 11/13/16 07:15 0.5 MG Levalbuterol (Xopenex 1.25MG/ 0.5ML Neb) 1.25 mg Q6R INH 11/06/16 21:00 12/06/16 20:59 11/13/16 07:15 1.25 MG Ipratropium [place] (Atrovent 0.02% 0.5MG/2.5ML Neb) 0.5 mg Q2H PRN INH 11/06/16 17:30 12/06/16 17:29 Levalbuterol (Xopenex 0.63 Mg/ 3 Ml Neb) 0.63 mg Q2H PRN INH 11/06/16 17:30 12/06/16 17:29 Aspirin (Ecotrin Tab) 162 mg QAM PO 11/07/16 08:00 12/07/16 07:59 Future Hold 11/07/16 08:46 162 MG Diphenhydramine HCl (Benadryl Cap) 25 mg HS PRN PO 11/06/16 17:30 12/06/16 17:29 Duloxetine HCl (Cymbalta Cap) 30 mg DAILY PO 11/07/16 08:00 12/07/16 07:59 11/13/16 09:13 30 MG Magnesium Oxide (Mag-Ox Tab) 400 mg QAM PO 11/07/16 08:00 12/07/16 07:59 11/13/16 09:13 400 MG Metoprolol Succinate (Toprol Xl Tab) 100 mg DAILY PO 11/07/16 08:00 12/07/16 07:59 11/13/16 09:14 100 MG Nitroglycerin (Nitrostat Tab) 0.4 mg UD PRN [place] 11/06/16 17:30 12/06/16 17:29 Pantoprazole Sodium (Protonix Tab) 40 mg QAM PO 11/07/16 08:00 12/07/16 07:59 11/13/16 09:14 40 MG Tapentadol (Nucynta Tab) 50 mg Q8 PRN PO 11/06/16 17:30 11/20/16 17:29 11/12/16 18:22 50 MG Warfarin Sodium (Coumadin Tab) 6 mg SuMoWeThFrSa@1600 PO 11/06/16 17:30 12/06/16 17:29 Future hold 11/12/16 15:51 6 MG Polyethylene (Miralax Powder Packet) 17 gm QAM PO 11/07/16 08:00 12/07/16 07:59 11/13/16 09:13 17 GM Tapentadol (Nucynta Er Tab) 100 mg BID PO 11/06/16 20:00 12/06/16 19:59 11/13/16 09:14 100 MG Pravastatin Sodium (Pravachol Tab) 80 mg HS PO 11/06/16 22:00 12/06/16 21:59 11/12/16 20:45 80 MG Heparin Sodium (Porcine) (Heparin 10 Unit/ ml 5 ml Flush) 5 ml PRN PRN FLUSH 11/07/16 00:30 12/07/16 00:29 11/12/16 07:40 5 ML Miscellaneous Information 1 ea 1 ea UD PRN N/A 11/07/16 08:30 12/07/16 08:29 Vancomycin HCl/ Sodium Chloride (Vancomycin Inj/ Nss 500ml) 538 ml @ 200 mls/hr Q10H IV 11/10/16 16:00 12/22/16 15:59 11/13/16 04:30 200 MLS/HR Prednisone (PredniSONE TAB) 20 mg DAILY PO 11/12/16 08:00 12/12/16 07:59 11/13/16 09:14 20 MG Warfarin Sodium (Coumadin Tab) 3 mg Tu@1600 PO 11/14/16 16:00 12/14/16 15:59 Insulin Glargine (Lantus Solostar Pen) HS SC 11/11/16 22:00 12/11/16 21:59 11/12/16 20:57 12 UNIT Heparin Sodium (Porcine) (Heparin Sq 5000 Unit/0.5ml) 5,000 unit Q8 SQ 11/12/16 22:00 12/12/16 21:59 11/13/16 06:21 5,000 UNIT
[2016-11-13 13:49] VITALS: PULSE 64; O2SAT 91
[2016-11-13] MEDS ORDERED: VANC500I IV (14:41)
--- NOTE | 2016-11-13 15:00 | Discharge Instructions ---
Discharge Instructions Date of Service November 13, 2016. Admission Reason for Admission: Osteomyelitis Of Right First Toe Discharge Discharge Diagnosis / Problem: Right great toe osteomyelitis s/p amputation, P. AFib, Shortness of breath Discharge Goals Goal(s): Decrease discomfort, Improve function, Improve disease control Activity Recommendations Activity Limitations: resume your previous activity (as tolerated) Follow up with your Primary Care Provider Dr. Cano on November 17 @10:45 am Follow up with Orthopedic .Dr. Ortega in 10-12 days from the day of the surgery Please call [facility] ([facility]) @ [phone] to schedule an appointment with Dr. Ortega Follow up with infectious disease Dr. Malhotra in 1 week (Dr. Malhotra Will let you know if antibiotic will need to extend) Continue follow with the wound care clinic OK to use your boot to ambulate Follow up with the Coumadin clinic to check your INR Daily wound care Fall precaution Home health services Continue Vanco IV infusion q12h Check CMP, CBC, ESR and Vanco Through weekly Check BMP and vanco Through this . Current Hospital Diet Patient's current hospital diet: Diabetes Type 2 Diet, AHA Diet (Heart Healthy) Discharge Diet Recommended Diet: AHA Diet (Heart Healthy) Procedures Procedures Performed: Right great toe partial amputation; flexor tenotomy 2/3/4/5 toes; manipulation under anesthesia of the 2nd, 3rd, 4th, and 5th toes. Pending Studies Studies pending at discharge: no Laboratory Results Hemoglobin A1c Test 11/08/16 05:50 Range/Units Estimated Average Glucose 220 mg/dl Hemoglobin A1c 9.3 H 4.5-5.6 % Medical Emergencies . Who to Call and When: Medical Emergencies: If at any time you feel your situation is an emergency, please call 911 immediately. . Non-Emergent Contact Non-Emergency issues call your: Primary Care Provider . . "Provider Documentation" section prepared by Zenia Hdz. . VTE Core Measure Inpt VTE Proph given/why not?: Unfractionated heparin SQ, Warfarin (Coumadin)
[2016-11-13 15:42] VITALS: BP 111/64; PULSE 64; TEMP 36.6; O2SAT 91
[2016-11-13 16:00] VITALS: O2SAT 93
[2016-11-13] MEDS: WARFARIN SOD 6 MG TAB PO SCH (16:02)
[2016-11-13 16:35] VITALS: BP 111/64; PULSE 64; TEMP 36.6; O2SAT 91
[2016-11-13] MEDS ORDERED: INSU3INJ3 SC (17:08)
--- NOTE | 2016-11-14 12:52 | Discharge Summary ---
Discharge Summary Date of Service November 14, 2016. Discharge Summary Admission Date: Nov 06, 2016 at 15:55 Discharge Date: November 13, 2016 Discharge Disposition: Home with services Principal Diagnosis: SHORTNESS OF BREATH Secondary Diagnoses/Problems: RIGHT GREAT TOE OSTEOMYELITIS P. Afib CAD HISTORY OF ENDOCARDITIS DM TYPE 2 DEPRESSION CHRONIC NECK PAIN Procedures: S/P Right great Toe amputation and toe manipulation by Dr. Ortega Consultations: Ortho ID Medication Reconciliation New Medications: Vancomycin Hcl In Dextrose (Vancomycin Hcl In Dextros) 1 Inj Inj 2.1 GM IV Q12 for 7 Days Changed Medications: Insulin Detemir (Levemir Flextouch) 100 Unit/Ml Inj 15 UNITS SC QPM for 30 Days (Changed from: Insulin Detemir (Levemir) Vial 15 Units SC QPM) Also dispense 30 days of pen needles for the levemix flextouch Continued Medications: Albuterol Sulfate (Proair Respiclick) 108 Mcg/Act Aer 2 PUFFS INH Q6 PRN for SOB/Wheezing Aspirin (Aspirin Chewable) 81 Mg Chew 162 MG PO DAILY Diphenhydramine Hcl (Benadryl Allergy) 25 Mg Cap 25 MG PO HS PRN for Itching, CAP Duloxetine HCl (Cymbalta) 30 Mg Cap 30 MG PO DAILY, 2 Refills Furosemide (Lasix) 20 Mg Tab 20 MG PO DAILY PRN for swelling, TAB Levalbuterol Hcl (Levalbuterol) 1.25 Mg/0.5 Ml Neb 1.25 MG NEB Q6 PRN for SOB/Wheezing Magnesium Oxide (Mag-Ox) 400 Mg Tab 400 MG PO QAM, TAB Metoprolol Succ (Toprol Xl) (Toprol-Xl) 50 Mg Tabcr 100 MG PO DAILY, #30 TAB Nitroglycerin (Nitrostat) 0.4 Mg Tab 0.4 MG UT UD PRN for Chest Pain, BTL Pantoprazole (Protonix) 40 Mg Tab 40 MG PO QAM, #30 TAB Polyethylene Glycol 3350 (Miralax) 1 Pow Pow 17 GM PO QAM, GM Potassium Chloride (K-Tabs) 10 Meq Tab 20 MEQ PO DAILY PRN for with Lasix Pravastatin Sodium (Pravastatin Sodium) 80 Mg Tab 1 TAB PO HS for 90 Days, #90 TAB 3 Refills Tapentadol Hcl (Nucynta Er) 100 Mg Tab 100 MG PO BID, TAB Tapentadol Hcl (Nucynta) 50 Mg Tab 50 MG PO Q8 PRN for Pain, TAB Warfarin Sodium (Coumadin) 6 Mg Tab 6 MG PO 6XWK, TAB Take 6 mg by mouth on Sunday, Sunday, Sunday, , Sunday, Sunday. Warfarin Sodium (Coumadin) 3 Mg Tab 3 MG PO WK, TAB Take 3 mg by mouth on Tuesdays Discontinued Medications: Daptomycin (Daptomycin) 500 Mg Inj 550 MG IV DAILY Admission Information HPI (per Admitting provider): This is a 71 year old male with COPD, asthma, DM type 2, CAD, paroxysmal AF, h/ o endocarditis, history of aortic and mitral valve replacements, history of CVA , and other problems listed below who presents as a direct admission from Dr. Malhotra for right 1st toe osteomyelitis. Pt reports longstanding right great toe wound and is known to have osteomyelitis. Has had serosanguineous drainage. Has been following with wound care and ID. Wound culture 09/22/16 grew enterococcus faecalis. Pt has seen Dr. Ortega who plans to do 1st toe amputation. Pt had preoperative evaluation by Dr. Casillas who advised to proceed with surgery. Pt has appointment with PCP for preop eval which was not done yet. Pt was initially on oral abx then since last 11/01 has been on Daptomycin at home via PICC line. Pt reports since 11/01 has increased SOB, nausea, wheezing, generalized weakness, diffuse arthralgias. At baseline pt has EASTON but this is worse and occasionally occurs at rest. No significant improvement with home albuterol inhaler. He admits to cough with clear sputum for past 1-2 weeks. Has associated rhinorrhea and sweats. He reports occasional "twinges" in right chest since PICC line was placed. Has chronic occasional palpitations. PO intake is good. Has chronic rash which was evaluated by dermatology. Denies fever, chills, sore throat, abdominal pain, vomiting, diarrhea, constipation, dysuria, frequency, edema, weight gain. No sick contacts. Pt was seen by Dr. Malhotra at wound care clinic today and sent for direct admission for R 1st toe osteomyelitis with concern for possible daptomycin reaction. Last dose of daptomycin was this morning. Physical Exam (per Admitting): General Appearance: WD/WN, no apparent distress, + pertinent finding Head: normocephalic, atraumatic Eyes: normal inspection, PERRL, EOMI ENT: hearing grossly normal, pharynx normal, + pertinent finding Neck: supple, no JVD, trachea midline Respiratory/Chest: no respiratory distress, no accessory muscle use, + wheezing Cardiovascular: regular rate, rhythm, + pertinent finding Abdomen/GI: normal bowel sounds, non tender, soft Extremities/Musculoskelatal: no calf tenderness, normal capillary refill, no pedal edema Neurologic/Psych: alert, normal mood/affect, oriented x 3, + pertinent finding Skin: + pertinent finding (right 1st toe ulceration with surrounding erythema of the toe. chronic round erythematous patches on extremities.) Hospital Course SHORTNESS OF BREATH Possible related viral URI vs bronchitis Doubt about COPD exacerbation Afebrile; no leukocytosis; saturating well on RA CXR showed bibasilar airspace opacities, likely representing atelectasis Influenza PCR negative Blood culture no growth Levaquin D/C as per ID recommendation steroid taper Continue Xopenex-Atrovent nebs Clinically stable resolved RIGHT GREAT TOE OSTEOMYELITIS/ DIABETIC ULCER Sent by Dr. Malhotra for direct admission Wound culture September 22 2016 grew enterococcus faecalis Seen by ortho Dr. Ortega- plan for amputation; Was cleared by cardiology Dr. Casillas for surgery Has been on daptomycin via PICC line as outpatient -> ? reaction to daptomycin D/c daptomycin as per ID recommendation Continue IV vancomycin as per ID As per ID will need minimum IV Vanco for 7 days post surgery will need weekly cbc, bmp, esr, vanco through Continue to follow at the wound care clinic or ID office Case discussed with Dr. Ortega yesterday that plan for surgery today Dr. Ortega will prefer the INR to be below 1.6 Vit K 5mg given last night and 2.5 mg given this morning 11/13/16 S/P day#3 right great Toe amputation and toe manipulation by Dr. Ortega No surgical complication dressing change as per ortho Outpatient abx infusion for IV vanco arranged by front office manager Appreciated pharmacy input, adjusted Vanco dose to 2.1g q12hr (Run btw 2-3 hrs) Will do weekly CBC, CMP, ESR and Vanco through (maintain btw 15 t0 20) Continue follow with wound care outpatient Follow up appt with ortho in 10 to 12 days. Follow up with ID in 1 week Case discussed with Dr. Malhotra Stable PAROXYSMAL ATRIAL FIBRILLATION Rate is controlled Continue metoprolol On Coumadin; INR 1.1 today Coumadin was on hold for the procedure. Continue Coumadin Follow up with the coag clinic for INR CAD Asymptomatic Continue beta armen Will hold Aspirin tomorrow dose for possible surgery Resume statin which was held while on daptomycin HISTORY OF ENDOCARDITIS S/p emergent MVR and AVR September 2014 in [place] Echo done on 09/21/16: * The left ventricle is normal in size. * There is mild concentric left ventricular hypertrophy. * There is mild global hypokinesis of the left ventricle. * Ejection Fraction = 45-50%. * The left atrium is mildly dilated. * There is a bioprosthetic aortic valve. * The gradient is normal for this prosthetic aortic valve. * Bioprosthetic leaflets are thin and move normally. * There is no aortic valvular vegetation. * There is a bioprosthetic mitral valve. * Bioprosthesis leaflets are thin and move normally. * There are no vegetations on this prosthetic mitral valve. * There is no mitral valve stenosis. * There is no mitral regurgitation noted. DM TYPE 2 A1c 9.4 in 08/2016 Continue basal long acting insulin NovoLog sliding scale DEPRESSION Continue Cymbalta CHRONIC NECK PAIN Continue Nucynta DVT PROPHYLAXIS INR 1.1 today Continue Coumadin heparin subq SCDs CODE STATUS Full code DISPOSITION Will need IV Vanco for at least 7days Follow up with wound care follow up with ortho Follow up with ID Total time spent on discharge = 35 minutes This includes examination of the patient, discharge planning, medication reconciliation, and communication with other providers. Discharge Instructions Discharge Instructions Date of Service November 13, 2016. Admission Reason for Admission: Osteomyelitis Of Right First Toe Discharge Discharge Diagnosis / Problem: Right great toe osteomyelitis s/p amputation, P. AFib, Shortness of breath Discharge Goals Goal(s): Decrease discomfort, Improve function, Improve disease control Activity Recommendations Activity Limitations: resume your previous activity (as tolerated) Follow up with your Primary Care Provider Dr. Cano on November 17 @10:45 am Follow up with Orthopedic .Dr. Ortega in 10-12 days from the day of the surgery Please call [facility] ([facility]) @ [phone] to schedule an appointment with Dr. Ortega Follow up with infectious disease Dr. Malhotra in 1 week (Dr. Malhotra Will let you know if antibiotic will need to extend) Continue follow with the wound care clinic OK to use your boot to ambulate Follow up with the Coumadin clinic to check your INR Daily wound care [facility] Home health services Continue Vanco IV infusion q12h Check CMP, CBC, ESR and Vanco Through weekly Check BMP and vanco Through this . Current Hospital Diet Patient's current hospital diet: Diabetes Type 2 Diet, AHA Diet (Heart Healthy) Discharge Diet Recommended Diet: AHA Diet (Heart Healthy) Procedures Procedures Performed: Right great toe partial amputation; flexor tenotomy 2/3/4/5 toes; manipulation under anesthesia of the 2nd, 3rd, 4th, and 5th toes. Pending Studies Studies pending at discharge: no Laboratory Results Hemoglobin A1c Test 11/08/16 05:50 Range/Units Estimated Average Glucose 220 mg/dl Hemoglobin A1c 9.3 H 4.5-5.6 % Medical Emergencies . Who to Call and When: Medical Emergencies: If at any time you feel your situation is an emergency, please call 911 immediately. . Non-Emergent Contact Non-Emergency issues call your: Primary Care Provider . . "Provider Documentation" section prepared by Zenia Hdz. . VTE Core Measure Inpt VTE Proph given/why not?: Unfractionated heparin SQ, Warfarin (Coumadin) Additional Copies To Martha Cano M.D.
[2016-11-14] MEDS ORDERED: WARFARIN SOD 3 MG TAB PO SCH (16:00)
== END 2016-11-13 18:16 | disposition home health service (06) | DRG 617 ==
LOC: C.MS4W 15:32 → UNDOADMIN 15:32 → C.MS4W 15:55
PROVIDERS: ADMIT Hospitalist; ATTEND Internal Medicine
PROC: 0Y6P0Z2 Detachment at Right 1st Toe, Mid, Open Approach (ICD-10-PCS; principal; 2016-11-10 07:15)
PROC: 0L8V0ZZ Division of Right Foot Tendon, Open Approach (ICD-10-PCS; principal; 2016-11-10 07:15)
DX: E11.69 Type 2 diabetes mellitus with other specified complication (principal); M86.471 Chronic osteomyelitis with draining sinus, right ankle and foot; B95.2 Enterococcus as the cause of diseases classified elsewhere; R06.02 Shortness of breath; J40 Bronchitis, not specified as acute or chronic; I48.0 Paroxysmal atrial fibrillation; I25.10 Atherosclerotic heart disease of native coronary artery without angina pectoris; F32.9 Major depressive disorder, single episode, unspecified; M54.2 Cervicalgia; E11.621 Type 2 diabetes mellitus with foot ulcer; Z95.2 Presence of prosthetic heart valve; Q66.89 Other specified congenital deformities of feet; Z82.49 Family history of ischemic heart disease and other diseases of the circulatory system; Z79.82 Long term (current) use of aspirin; J45.909 Unspecified asthma, uncomplicated; Z86.73 Personal history of transient ischemic attack (TIA), and cerebral infarction without residual deficits; F17.200 Nicotine dependence, unspecified, uncomplicated; Z79.01 Long term (current) use of anticoagulants; Z79.4 Long term (current) use of insulin; I10 Essential (primary) hypertension; I25.2 Old myocardial infarction; L97.519 Non-pressure chronic ulcer of other part of right foot with unspecified severity; L62 Nail disorders in diseases classified elsewhere; L84 Corns and callosities; G62.9 Polyneuropathy, unspecified; E11.40 Type 2 diabetes mellitus with diabetic neuropathy, unspecified; I48.91 Unspecified atrial fibrillation; I50.9 Heart failure, unspecified; F17.210 Nicotine dependence, cigarettes, uncomplicated; J44.9 Chronic obstructive pulmonary disease, unspecified; Z95.1 Presence of aortocoronary bypass graft; Z86.718 Personal history of other venous thrombosis and embolism; Z86.14 Personal history of Methicillin resistant Staphylococcus aureus infection; Z88.0 Allergy status to penicillin; Z88.5 Allergy status to narcotic agent; Z88.1 Allergy status to other antibiotic agents; Z91.013 Allergy to seafood; Z88.7 Allergy status to serum and vaccine; Z91.041 Radiographic dye allergy status

== ENCOUNTER → 2016-11-16 | Outpatient (CLI) | payer OTHER ==
[~2016-11-16] MED LIST changes: +ACET-1311 PO; +ALBU18002 INH; -DAPT500I IV; -INSU1INJ2 SC; +INSU3INJ3 SC; -INSUINJ12 SC; +LVMI SQ; +VANC500I IV
[2016-11-16 08:23] LABS: BASO % 0.8 %; BASO ABS # 0.08 K/uL (0-0.2); COMPLETE YES; EOS % 8.6 %; HEMATOCRIT 43.3 % (42-52); LYMPH % 24.7 %; LYMPH ABS # 2.42 K/uL (1.2-3.4); MEAN CELL VOLUME 93.5 fL (80-100); MEAN CORPUSCULAR HEMOGLOBIN 30.7 pg (25-34); MEAN CORPUSCULAR HGB CONC 32.8 g/dl (32-36); MEAN PLATELET VOLUME 11.8 fL (7.4-10.4); MONO % 13.6 %; NEUT % 51.3 %; PLATELET COUNT 212 K/uL (130-400); RED BLOOD COUNT 4.63 M/uL (4.7-6.1)
[2016-11-16 08:31] LABS: ALT/SGPT 23 U/L (12-78); BLOOD UREA NITROGEN 15 mg/dl (7-18); BUN/CREATININE RATIO 16.5 (10-20); CARBON DIOXIDE 28 mmol/L (21-32); CHLORIDE 104 mmol/L (98-107); CREATININE 0.91 mg/dl (0.60-1.40); GLUCOSE 147 mg/dl (70-99); POTASSIUM 3.7 mmol/L (3.5-5.1); SODIUM 139 mmol/L (136-145)
[2016-11-16 08:34] LABS: ALB/GLOB RATIO 1.2 (0.9-2); ALKALINE PHOSPHATASE 43 U/L (45-117); AST/SGOT 10 U/L (15-37)
[2016-11-16 08:37] LABS: CALCIUM 9.5 mg/dl (8.5-10.1)
== END ==
LOC: C.LABCC 07:51
PROVIDERS: ATTEND Internal Medicine
DX: M86.9 Osteomyelitis, unspecified (principal)

== ENCOUNTER 2016-11-21 16:11 | Inpatient (IN) | payer OTHER ==
[~2016-11-21] VITALS: Ht 182.9 cm; Wt 133.3 kg
[~2016-11-21 16:11] MED LIST changes: -ACET-1311 PO; -LVMI SQ
[2016-11-21] MEDS ORDERED: SODIUM CHLORIDE 0.9% 1000ML 1,000 ML IV SCH (16:46)
--- NOTE | 2016-11-21 17:09 | DIAGNOSTIC IMAGING REPORT ---
CT HEAD WITHOUT CONTRAST (CT) CLINICAL HISTORY: Stroke COMPARISON STUDY: 09/07/2014 TECHNIQUE: Axial CT of the brain is performed from the vertex to the skull base. IV contrast was not administered for this examination. CT DOSE: 537.48 mGy.cm FINDINGS: No intra or extra-axial mass lesions are visualized. There is no CT evidence of acute cortical infarction. There is no evidence of midline shift. There is no acute hemorrhage. No calvarial fractures are visualized. There is prominent anterior subarachnoid space, likely secondary to volume loss. There is no evidence of pathologic ventricular dilatation. There is no evidence of acute sinusitis IMPRESSION: No acute intracranial findings Electronically signed by: David Mantilla M.D. 11/21/2016 5:08 PM Dictated Date/Time: 11/21/2016 5:07 PM
--- NOTE | 2016-11-21 17:11 | DIAGNOSTIC IMAGING REPORT ---
CHEST ONE VIEW PORTABLE CLINICAL HISTORY: Stroke COMPARISON STUDY: 11/06/2016 FINDINGS: The heart is mildly enlarged. There are postsurgical changes of a midline sternotomy. The right-sided PICC catheter has been removed. There is no failure. There is no focal pulmonary consolidation. There are no pleural effusions.[ IMPRESSION: Mild cardiomegaly. No acute findings. Electronically signed by: David Mantilla M.D. 11/21/2016 5:10 PM Dictated Date/Time: 11/21/2016 5:10 PM
[2016-11-21] MEDS ORDERED: LVMI SQ (17:25)
[2016-11-21] MEDS ORDERED: ACET-1311 PO (17:32)
[2016-11-21 18:13] LABS: BASO % 1.8 %; BASO ABS # 0.21 K/uL (0-0.2); COMPLETE YES; IG% 0.4 %; LYMPH % 32.6 %; LYMPH ABS # 3.74 K/uL (1.2-3.4); MEAN CELL VOLUME 92.4 fL (80-100); MEAN CORPUSCULAR HEMOGLOBIN 30.4 pg (25-34); MEAN CORPUSCULAR HGB CONC 32.9 g/dl (32-36); MEAN PLATELET VOLUME 10.7 fL (7.4-10.4); MONO % 9.7 %; NEUT % 50.5 %; PLATELET COUNT 208 K/uL (130-400); RED BLOOD COUNT 4.87 M/uL (4.7-6.1); WHITE BLOOD COUNT 11.49 K/uL (4.8-10.8)
[2016-11-21 18:25] LABS: INR 2.2 (0.9-1.1); PARTIAL THROMBOPLASTIN RATIO 1.2; PROTHROMBIN TIME (PATIENT) 23.9 SECONDS (9.0-12.0)
[2016-11-21] MEDS ORDERED: ONDANSETRON INJ 2 MG/ML 2 ML VIAL IV PRN (18:30)
[2016-11-21 18:32] LABS: BLOOD UREA NITROGEN 21 mg/dl (7-18); BUN/CREATININE RATIO 24.3 (10-20); CALCIUM 9.9 mg/dl (8.5-10.1); CARBON DIOXIDE 31 mmol/L (21-32); CHLORIDE 100 mmol/L (98-107); CREATININE 0.87 mg/dl (0.60-1.40); GLUCOSE 160 mg/dl (70-99); POTASSIUM 4.2 mmol/L (3.5-5.1); SODIUM 137 mmol/L (136-145)
[2016-11-21 18:37] LABS: CKMB/CK RATIO 6.6 (0-3.0)
--- NOTE | 2016-11-21 18:41 | EMERGENCY ROOM VISIT NOTE ---
History Report prepared by Nubia: Vi Garcia Under the Supervision of: Dr. Michele Carpio M.D. First contact with patient: 16:33 Chief Complaint: NEURO SYMPTOMS Stated Complaint: STROKE SYMPTOMS Nursing Triage Summary: pt arrived als from [facility] with request for a stroke exam pt reports "feels like i have a fuzzy head and lip swollen" pt denies weakness, hx tia, extensive cardiac hx reports of a change in right carodid pt recent toe amputation with barter History of Present Illness The patient is a 71 year old male who presents to the Emergency Room with complaints of intermittent neurological symptoms beginning yesterday. The patient states that he came from [facility] and has a history of TIAs. He reports that he began to have symptoms similar to his previous TIAs yesterday and the [facility] staff sent him in to the ED. He reports that he was at Physical Therapy yesterday when he began to feel right sided weakness, general fatigue, right sided lip numbness, lip feeling fat, drooling, and a headache. He notes that since that episode he has had a constant headache and just [employer] today his symptoms returned. He complains of a constant headache that started yesterday, weakness, drooling, lip numbness, difficulty focusing, right sided blurry vision, slurred speech after talking for an extended period of time, right sided mouth drooping, slight chest pain described as a "twinge" intermittently one time a day and can be short of breath with it. He denies any abdominal pain, new leg swelling, and leg pain. The patient notes a history of atrial fibrillation and cardiac surgery. He states that he takes Lasix, Metoprolol, Coumadin, 2 Aspirin, and is not on Plavix. He notes that his last TIA was 6 months ago and his weakness always tends to be on the right side. Source of History: patient Onset: yesterday Position: other (global) Quality: other (neurologic symptoms) Timing: intermittent Modifying Factors (Worsening): other Associated Symptoms: + SOB, + chest pain, + headache, + weakness, No abdominal pain Note: He complains of drooling, lip numbness, difficulty focusing, right sided blurry vision, slurred speech after talking for an extended period of time, right sided mouth drooping. He denies any new leg swelling, and leg pain. Review of Systems See HPI for pertinent positives & negatives. A total of 10 systems reviewed and were otherwise negative. 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 Surgical Problems: (1) H/O angioplasty (2) H/O aortic valve replacement (3) H/O cervical spine surgery (4) History of cataract surgery (5) Hx of CABG (6) S/P mitral valve replacement with bioprosthetic valve Family History FH: CAD (coronary artery disease) FATHER Social History Smoking Status: Current Every Day Smoker Marital Status: Housing Status: lives with significant other Occupation Status: retired Current/Historical Medications Scheduled Aspirin (Aspirin Chewable), 162 MG PO DAILY Duloxetine HCl (Cymbalta), 30 MG PO DAILY Furosemide (Lasix), 20 MG PO DAILY Insulin Detemir (Levemir), 15 UNITS SQ QPM Magnesium Oxide (Mag-Ox), 400 MG PO QAM Metoprolol Succ (Toprol Xl) (Toprol-Xl), 100 MG PO DAILY Pantoprazole (Protonix), 40 MG PO QAM Polyethylene Glycol 3350 (Miralax), 17 GM PO QAM Potassium Chloride (K-Tabs), 20 MEQ PO DAILY Pravastatin Sodium (Pravastatin Sodium), 80 MG PO HS Tapentadol Hcl (Nucynta Er), 100 MG PO BID Warfarin Sodium (Coumadin), 6 MG PO [id number] Warfarin Sodium (Coumadin), 3 MG PO WK Scheduled PRN Acetaminophen (Tylenol), 650 MG PO Q6H PRN for Pain or Fever Albuterol Sulfate (Proair Respiclick), 2 PUFFS INH Q6 PRN for SOB/Wheezing Diphenhydramine Hcl (Benadryl Allergy), 25 MG PO Q6H PRN for Itching Levalbuterol Hcl (Levalbuterol), 1.25 MG NEB Q6 PRN for SOB/Wheezing Nitroglycerin (Nitrostat), 0.4 MG UT UD PRN for Chest Pain Tapentadol Hcl (Nucynta), 50 MG PO Q8 PRN for Pain Allergies Coded Allergies: Clarithromycin (Verified Allergy, Severe, SHORTNESS OF BREATH, 11/01/16) Rash Hydrocodone (Verified Allergy, Severe, HIVES, RESP DISTRESS, 11/01/16) Macrolides (Verified Allergy, Severe, HIVES, RESP DISTRESS, 11/01/16) Penicillins (Verified Allergy, Severe, HIVES, RESP DISTRESS, 11/01/16) Tolerated Ceftriaxone Shellfish Allergy (Verified Allergy, Severe, HIVES, RESP DISTRESS, 11/01/16 ) Tuberculin Purified Protein Derivat (Verified Allergy, Severe, HIVES, RESP DISTRESS, 11/01/16) Iodine (Verified Allergy, Unknown, HIVES, RESP DISTRESS, 11/01/16) Losartan (Verified Allergy, Unknown, HIVES, RESP DISTRESS, 11/01/16) Iodinated Diagnostic Agents (Verified Adverse Reaction, Severe, SHORTNESS OF BREATH, 11/01/16) X-RAY DYE Physical Exam Vital Signs Date Time Temp Pulse Resp B/P Pulse Ox O2 Delivery O2 Flow Rate FiO2 11/21/16 18:11 68 19 11/21/16 17:56 68 15 95 11/21/16 17:41 68 16 93 11/21/16 17:26 69 17 95 11/21/16 17:20 95 Room Air 11/21/16 17:08 72 11/21/16 16:56 72 17 94 11/21/16 16:41 69 20 96 11/21/16 16:27 36.9 72 18 129/69 95 Room Air 11/21/16 16:26 71 16 92 11/21/16 16:15 129/69 Physical Exam Constitutional: Vital signs reviewed. Eyes: Pupils are equal round reactive to light. Conjunctiva are noninjected. ENT: Pharynx is clear without erythema or exudate. Mucous membranes are moist. Neck supple without meningeal signs. Respiratory: Clear to auscultation bilaterally. Breath sounds are equal bilaterally. Cardiovascular: Regular rate and rhythm. No rubs or gallops. GI: Soft, nondistended and nontender. Bowel sounds are present. Musculoskeletal: No peripheral edema. No lower extremity tenderness. Integumentary: No cyanosis. Neurological: The patient is awake and alert. Cranial nerves II-XII are intact , except for slight right facial droop, numbness throughout right side of face. Motor is 5 out of 5 all extremities except 4/5 strength in the right leg. Sensation is intact to light touch all extremities. Normal speech. No pronator drift, Psychiatric: Normal affect. Medical Decision & Procedures ER Provider Diagnostic Interpretation: Radiology results as stated below per my review and the radiologist's interpretation: CT HEAD WITHOUT CONTRAST (CT) FINDINGS: No intra or extra-axial mass lesions are visualized. There is no CT evidence of acute cortical infarction. There is no evidence of midline shift. There is no acute hemorrhage. No calvarial fractures are visualized. There is prominent anterior subarachnoid space, likely secondary to volume loss. There is no evidence of pathologic ventricular dilatation. There is no evidence of acute sinusitis IMPRESSION: No acute intracranial findings Electronically signed by: David Mantilla M.D. 11/21/2016 5:08 PM Dictated Date/Time: 11/21/2016 5:07 PM CHEST ONE VIEW PORTABLE FINDINGS: The heart is mildly enlarged. There are postsurgical changes of a midline sternotomy. The right-sided PICC catheter has been removed. There is no failure. There is no focal pulmonary consolidation. There are no pleural effusions.[ IMPRESSION: Mild cardiomegaly. No acute findings. Electronically signed by: David Mantilla M.D. 11/21/2016 5:10 PM Dictated Date/Time: 11/21/2016 5:10 PM Laboratory Results 11/21/16 18:03 Red Blood Count 4.87, Mean Corpuscular Volume 92.4, Mean Corpuscular Hemoglobin 30.4, Mean Corpuscular Hemoglobin Concent 32.9, Mean Platelet Volume 10.7, Neutrophils (%) (Auto) 50.5, Lymphocytes (%) (Auto) 32.6, Monocytes (%) (Auto) 9.7, Eosinophils (%) (Auto) 5.0, Basophils (%) (Auto) 1.8, Neutrophils # (Auto) 5.81, Lymphocytes # (Auto) 3.74, Monocytes # (Auto) 1.11, Eosinophils # (Auto) 0.57, Basophils # (Auto) 0.21 11/21/16 18:03 Test 11/21/16 16:46 11/21/16 18:03 11/21/16 18:11 Creatine Kinase MB Ratio (0-3.0) White Blood Count 11.49 K/uL (4.8-10.8) Red Blood Count 4.87 M/uL (4.7-6.1) Hemoglobin 14.8 g/dL (14.0-18.0) Hematocrit 45.0 % (42-52) Mean Corpuscular Volume 92.4 fL (80-100) Mean Corpuscular Hemoglobin 30.4 pg (25-34) Mean Corpuscular Hemoglobin Concent 32.9 g/dl (32-36) Platelet Count 208 K/uL (130-400) Mean Platelet Volume 10.7 fL (7.4-10.4) Neutrophils (%) (Auto) 50.5 % Lymphocytes (%) (Auto) 32.6 % Monocytes (%) (Auto) 9.7 % Eosinophils (%) (Auto) 5.0 % Basophils (%) (Auto) 1.8 % Neutrophils # (Auto) 5.81 K/uL (1.4-6.5) Lymphocytes # (Auto) 3.74 K/uL (1.2-3.4) Monocytes # (Auto) 1.11 K/uL (0.11-0.59) Eosinophils # (Auto) 0.57 K/uL (0-0.5) Basophils # (Auto) 0.21 K/uL (0-0.2) RDW Standard Deviation 44.9 fL (36.4-46.3) RDW Coefficient of Variation 13.2 % (11.5-14.5) Immature Granulocyte % (Auto) 0.4 % Immature Granulocyte # (Auto) 0.05 K/uL (0.00-0.02) Prothrombin Time 23.9 SECONDS (9.0-12.0) Prothromb Time International Ratio 2.2 (0.9-1.1) Activated Partial Thromboplast Time 30.8 SECONDS (21.0-31.0) Partial Thromboplastin Ratio 1.2 Anion Gap 6.0 mmol/L (3-11) Est Creatinine Clear Calc Drug Dose 120.1 ml/min Estimated GFR () 102.1 Estimated GFR (Non- 88.1 BUN/Creatinine Ratio 24.3 (10-20) Calcium Level 9.9 mg/dl (8.5-10.1) Bedside Prothrombin Time INR 2.0 (0.9-1.1) Bedside Glucose 149 mg/dl (70-99) Laboratory results as reviewed by me. ECG Indication: weakness Rate (beats per minute): 67 Rhythm: normal sinus Findings: LBBB, no ectopy Change: The patient states that he normally has a bundle branch block. ED Course 163: The patient was evaluated in room B12. A complete history and physical exam was performed. 164: Sodium Chloride 1000 ml @ 50 mls/hr IV. 172: I reevaluated the patient and he has improved strength in the right leg but persistent numbness in the right face. 1800: I spoke with Frannie Palacios PA-C of [facility]. We discussed the patient and the results. The patient will be further evaluated by Frannie Palacios. Medical Decision This is a 71-year-old male who presents with stroke symptoms. Differential diagnosis includes TIA, CVA, intracranial hemorrhage, intracranial mass, metabolic derangement. I did perform a limited focused review of portions of the patient's old chart on the electronic medical record. The patient was here for shortness of breath and right toe osteomyelitis. I did evaluate the patient as noted above. The patient is presenting with stroke symptoms since yesterday. He has right facial droop and numbness with some weakness to his right leg. He states these symptoms are similar to when he had his prior TIA. IV access was established. The patient was placed on a continuous university internship. I did order and personally review the patient's 12- lead EKG and chest x-ray as described above. I did order and review the patient 's blood work as noted in the electronic medical record. INR is therapeutic. Troponin is negative. I did order a CT of the head. I did review the images myself as well as the radiology report as described above. I did discuss the test results with the patient. He appears to have some increased strength in his right leg on reassessment. He continues have the numbness to his face. His symptoms seem most consistent with a CVA. The patient cannot have an MRI. He will be hospitalized for further evaluation. I did discuss the case with the hospitalist and family caseworker. Consults Time Called: [phone] Consulting Physician: Frannie Palacios PA-C Returned Call: 180 I spoke with Frannie Palacios PA-C of [facility]. We discussed the patient and the results. The patient will be further evaluated by Frannie Palacios. Impression Primary Impression: CVA (cerebral vascular accident) Additional Impression: Acute chest pain Scribe Attestation The scribe's documentation has been prepared under my direct and personally reviewed by me in its entirety. I confirm that the note above accurately reflects all work, treatment, procedures, and medical decision making performed by me. Departure Information Dispostion Being Evaluated By Hospitalist Referrals [facility] (PCP) Patient Instructions My [facility] Health Problem Qualifiers Primary Impression: CVA (cerebral vascular accident) CVA mechanism: unspecified Qualified Codes: I63.9 - Cerebral infarction, unspecified
[2016-11-21] MEDS ORDERED: DEXTROSE 50% 50 ML SYR IV PRN (19:30)
[2016-11-21] MEDS ORDERED: GLUCAGON FOR INJ 1 MG VIAL SQ PRN (19:30)
[2016-11-21] MEDS ORDERED: GLUCOSE 10 TABS/TUBE PO PRN (19:30)
[2016-11-21] MEDS ORDERED: GLUCOSE 40% GEL 15 GM TUBE PO PRN (19:30)
[2016-11-21] MEDS ORDERED: PHARMACIST DISCHARGE MED REC CONSULT PRN (19:30)
[2016-11-21 19:45] VITALS: BP 132/71; PULSE 71; TEMP 36.7; O2SAT 95; BMI 35.9
[2016-11-21] MEDS ORDERED: NITROGLYCERIN 0.4 MG SL PER TAB CHARGE UT PRN (19:45)
[2016-11-21] MEDS ORDERED: ALBUTEROL HFA 8 GM INHALER INH PRN (20:00)
[2016-11-21] MEDS: INSULIN ASPART 100 UNITS/ML 3 ML PEN SC SCH (20:09)
--- NOTE | 2016-11-21 20:34 | History and Physical ---
History & Physical Date & Time of Service: November 21, 2016 at 19:41 Chief Complaint: Stroke Symptoms Primary Care Physician: Martha Cano M.D. History of Present Illness Source: patient, hospital records This is a 71 year old male with PMH of PAF, history of TIA, DM type 2, CAD, hx of endocarditis, and other problems listed below who presents to the ED from [facility] for stroke like symptoms. Patient was recently admitted at [facility] from November 06-November 13 for right great toe osteomyelitis and underwent amputation of right great toe 11/10/[address] Ortega and SOB attributed to viral URI vs. bronchitis. Patient was seen by ID during last admission and discharged on IV vancomycin for 7 days postoperatively. Pt was initially discharged to home w/ services then was placed in [facility] on 11/15/16. Pt states vancomycin was stopped on 11/15 due to hives reaction. PICC line was removed and he is no longer on abx. Pt was seen by the ortho PA-Josr in clinic today and was told his amputation site looked good. He has an appointment with Dr. Malhotra for ID f/ u tomorrow. Pt states current symptoms started yesterday during PT. He describes RLE weakness and numbness, "fat lip", drooling, intermittent slurred speech, head feeling "big", right eye blurry vision. Symptoms are persistent today. Pt states he had multiple TIA's in the past with right sided weakness. He has seen neurology Dr. Howe in the past. Patient reports recent "twinges" of chest pain, however not experiencing chest pain today. Pain occurs the right side lasting 2 seconds- states it does not feel like his prior angina. He reports chronic EASTON but no change. Pt denies headache, swallowing difficulty, abdominal pain, vomiting, diarrhea, urinary changes. Past Medical/Surgical History Medical Problems: (1) AAA (abdominal aortic aneurysm) Status: Chronic (2) Angina Status: Chronic (3) ARB intolerance Status: Chronic (4) Asthma, moderate Status: Chronic (5) Cerebrovascular disease, arteriosclerotic, post-stroke Status: Chronic (6) Chronic anticoagulation Status: Chronic (7) COPD, moderate Status: Chronic (8) Depression Status: Chronic (9) DM type 2 (diabetes mellitus, type 2) Status: Chronic (10) DVT (deep venous thrombosis) Status: Resolved (11) Dyslipidemia Status: Chronic (12) Heart disease Status: Chronic (13) History of endocarditis Status: Chronic (14) HTN (hypertension) Status: Chronic (15) LBBB (left bundle branch block) Status: Chronic (16) SC (myocardial infarction) Status: Chronic (17) Paroxysmal atrial fibrillation Status: Chronic (18) 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 Surgical Problems: (1) H/O angioplasty Permanent Comment: 1999 Angioplasty,single vessel [facility] Dr [place], [facility] Status: Chronic (2) H/O aortic valve replacement Permanent Comment: aortic valve replacement with prosthetic valve 06/15/2010 and 09/15/2014 Status: Chronic (3) H/O cervical spine surgery Status: Chronic (4) History of cataract surgery Status: Chronic (5) Hx of CABG Permanent Comment: 06/15/2010 CABG with 1 vein graft, [facility] Status: Chronic (6) S/P mitral valve replacement with bioprosthetic valve Permanent Comment: 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 Status: Chronic Family History FH: CAD (coronary artery disease) FATHER Social History Smoking Status: Current Every Day Smoker (1/2 ppd until recent hospitalization) Marital Status: Housing status: other (currently at [facility]) Occupational Status: retired Immunizations History of Influenza Vaccine: Yes Influenza Vaccine Date: Mar 16, 2011 History of Tetanus Vaccine?: Yes History of Pneumococcal: Unknown History of Hepatitis B Vaccine: YES - MANY YEARS AGO Multi-Drug Resistant Organisms History of MDRO: No Allergies Coded Allergies: Clarithromycin (Verified Allergy, Severe, SHORTNESS OF BREATH, 11/01/16) Rash Hydrocodone (Verified Allergy, Severe, HIVES, RESP DISTRESS, 11/01/16) Macrolides (Verified Allergy, Severe, HIVES, RESP DISTRESS, 11/01/16) Penicillins (Verified Allergy, Severe, HIVES, RESP DISTRESS, 11/01/16) Tolerated Ceftriaxone Shellfish Allergy (Verified Allergy, Severe, HIVES, RESP DISTRESS, 11/01/16 ) Tuberculin Purified Protein Derivat (Verified Allergy, Severe, HIVES, RESP DISTRESS, 11/01/16) Iodine (Verified Allergy, Unknown, HIVES, RESP DISTRESS, 11/01/16) Losartan (Verified Allergy, Unknown, HIVES, RESP DISTRESS, 11/01/16) Iodinated Diagnostic Agents (Verified Adverse Reaction, Severe, SHORTNESS OF BREATH, 11/01/16) X-RAY DYE Home Medications Scheduled Aspirin (Aspirin Chewable), 162 MG PO DAILY Duloxetine HCl (Cymbalta), 30 MG PO DAILY Insulin Detemir (Levemir), 15 UNITS SQ QPM Magnesium Oxide (Mag-Ox), 400 MG PO QAM Metoprolol Succ (Toprol Xl) (Toprol-Xl), 100 MG PO DAILY Pantoprazole (Protonix), 40 MG PO QAM Polyethylene Glycol 3350 (Miralax), 17 GM PO QAM Pravastatin Sodium (Pravastatin Sodium), 80 MG PO HS Tapentadol Hcl (Nucynta Er), 100 MG PO BID Warfarin Sodium (Coumadin), 6 MG PO [id number] Warfarin Sodium (Coumadin), 3 MG PO WK Scheduled PRN Albuterol Sulfate (Proair Respiclick), 2 PUFFS INH Q6 PRN for SOB/Wheezing Diphenhydramine Hcl (Benadryl Allergy), 25 MG PO HS PRN for Itching Furosemide (Lasix), 20 MG PO DAILY PRN for swelling Levalbuterol Hcl (Levalbuterol), 1.25 MG NEB Q6 PRN for SOB/Wheezing Nitroglycerin (Nitrostat), 0.4 MG UT UD PRN for Chest Pain Potassium Chloride (K-Tabs), 20 MEQ PO DAILY PRN for with Lasix Tapentadol Hcl (Nucynta), 50 MG PO Q8 PRN for Pain Review of Systems Ten systems reviewed and negative except as noted in above HPI. Physical Exam Vital Signs Date Time Temp Pulse Resp B/P Pulse Ox O2 Delivery O2 Flow Rate FiO2 11/21/16 19:11 68 15 113/77 96 11/21/16 19:06 69 17 96 11/21/16 19:01 69 19 96 11/21/16 18:56 75 18 95 11/21/16 18:51 72 16 92 11/21/16 18:46 69 24 11/21/16 18:41 68 18 96 11/21/16 18:36 69 17 97 11/21/16 18:31 70 15 99 11/21/16 18:26 72 17 97 11/21/16 18:21 70 14 94 11/21/16 18:16 69 16 94 11/21/16 18:11 68 19 11/21/16 17:56 68 15 95 11/21/16 17:41 68 16 93 11/21/16 17:26 69 17 95 11/21/16 17:20 95 Room Air 11/21/16 17:08 72 11/21/16 16:56 72 17 94 11/21/16 16:41 69 20 96 11/21/16 16:27 36.9 72 18 129/69 95 Room Air 11/21/16 16:26 71 16 92 11/21/16 16:15 129/69 General Appearance: WD/WN, no apparent distress, + pertinent finding (pleasant alert 71 year old male, not in distress) Head: normocephalic, atraumatic Eyes: normal inspection, PERRL, EOMI ENT: hearing grossly normal, pharynx normal Neck: supple, trachea midline Respiratory/Chest: lungs clear, normal breath sounds, no respiratory distress Cardiovascular: regular rate, rhythm, no murmur Abdomen/GI: normal bowel sounds, non tender, soft Extremities/Musculoskelatal: no calf tenderness, no pedal edema, + pertinent finding (right foot dressing in place s/p right great toe amputation) Neurologic/Psych: alert, normal mood/affect, oriented x 3, + pertinent finding (slight right lip droop. remainder of cranial nerve II-XII exam normal. right lower extremity strength 4/5, all other extremities 5/5. sensation to light touch intact on the face and all extremities. visual koch intact to confrontation. ) Skin: warm/dry, + pertinent finding (chronic round patches on extremities) Diagnostics Laboratory Results Results Past 24 Hours Test 11/21/16 18:03 11/21/16 18:11 11/21/16 19:27 Range/Units White Blood Count 11.49 4.8-10.8 K/uL Red Blood Count 4.87 4.7-6.1 M/uL Hemoglobin 14.8 14.0-18.0 g/dL Hematocrit 45.0 42-52 % Mean Corpuscular Volume 92.4 80-100 fL Mean Corpuscular Hemoglobin 30.4 25-34 pg Mean Corpuscular Hemoglobin Concent 32.9 32-36 g/dl Platelet Count 208 130-400 K/uL Mean Platelet Volume 10.7 7.4-10.4 fL Neutrophils (%) (Auto) 50.5 % Lymphocytes (%) (Auto) 32.6 % Monocytes (%) (Auto) 9.7 % Eosinophils (%) (Auto) 5.0 % Basophils (%) (Auto) 1.8 % Neutrophils # (Auto) 5.81 1.4-6.5 K/uL Lymphocytes # (Auto) 3.74 1.2-3.4 K/uL Monocytes # (Auto) 1.11 0.11-0.59 K/uL Eosinophils # (Auto) 0.57 0-0.5 K/uL Basophils # (Auto) 0.21 0-0.2 K/uL RDW Standard Deviation 44.9 36.4-46.3 fL RDW Coefficient of Variation 13.2 11.5-14.5 % Immature Granulocyte % (Auto) 0.4 % Immature Granulocyte # (Auto) 0.05 0.00-0.02 K/uL Prothrombin Time 23.9 9.0-12.0 SECONDS Prothromb Time International Ratio 2.2 0.9-1.1 Activated Partial Thromboplast Time 30.8 21.0-31.0 SECONDS Partial Thromboplastin Ratio 1.2 Sodium Level 137 136-145 mmol/L Potassium Level 4.2 3.5-5.1 mmol/L Chloride Level 100 98-107 mmol/L Carbon Dioxide Level 31 21-32 mmol/L Anion Gap 6.0 3-11 mmol/L Blood Urea Nitrogen 21 7-18 mg/dl Creatinine 0.87 0.60-1.40 mg/dl Est Creatinine Clear Calc Drug Dose 120.1 ml/min Estimated GFR () 102.1 Estimated GFR (Non- 88.1 BUN/Creatinine Ratio 24.3 10-20 Random Glucose 160 70-99 mg/dl Calcium Level 9.9 8.5-10.1 mg/dl Total Creatine Kinase 41 39-308 U/L Creatine Kinase MB 2.7 0.5-3.6 ng/ml Creatine Kinase MB Ratio 6.6 0-3.0 Troponin I < 0.015 0-0.045 ng/ml Bedside Prothrombin Time INR 2.0 0.9-1.1 Bedside Glucose 149 70-99 mg/dl Diagnostic Radiology CT HEAD WITHOUT CONTRAST (CT) CLINICAL HISTORY: Stroke COMPARISON STUDY: 09/07/2014 TECHNIQUE: Axial CT of the brain is performed from the vertex to the skull base. IV contrast was not administered for this examination. CT DOSE: 537.48 mGy.cm FINDINGS: No intra or extra-axial mass lesions are visualized. There is no CT evidence of acute cortical infarction. There is no evidence of midline shift. There is no acute hemorrhage. No calvarial fractures are visualized. There is prominent anterior subarachnoid space, likely secondary to volume loss. There is no evidence of pathologic ventricular dilatation. There is no evidence of acute sinusitis IMPRESSION: No acute intracranial findings CHEST ONE VIEW PORTABLE CLINICAL HISTORY: Stroke COMPARISON STUDY: 11/06/2016 FINDINGS: The heart is mildly enlarged. There are postsurgical changes of a midline sternotomy. The right-sided PICC catheter has been removed. There is no failure. There is no focal pulmonary consolidation. There are no pleural effusions.[ IMPRESSION: Mild cardiomegaly. No acute findings. EKG NSR, chronic LBBB, no significant change from prior EKG Impression Assessment and Plan STROKE LIKE SYMPTOMS Possible TIA, rule out CVA At risk due to Afib (on Coumadin with INR 2.2), history of prior TIAs, DM type 2 CT head- no acute findings Carotid ultrasound done as outpatient on 11/20/16- bilateral vertebral arteries not visualized, these may be preocclusive or occluded. Further evaluation recommended. Bilateral carotid plaque disease with less than 50% internal carotid artery stenosis. Recent echo noted below Repeat CT head tomorrow am as patient states he is contraindicated for MRI due to sternotomy wires Considered CTA head/ neck however patient has dye allergy Continue aspirin 162 mg daily, Coumadin, statin Neuro checks PT, OT, speech consultations Consult neurology PAROXYSMAL ATRIAL FIBRILLATION Currently in NSR Continue Toprol INR therapeutic at 2.2 Continue Coumadin and monitor INR DM TYPE 2 Continue long acting insulin Insulin sliding scale coverage Monitor BSG AC HS Check A1c RECENT RIGHT GREAT TOE OSTEOMYELITIS S/p right great toe amputation 11/10/[address] Ortega Discharged on Vancomycin- was supposed to take for 7 days postop as per ID but was stopped on 11/15 due to hives reaction; PICC line removed Pt was scheduled to see Dr. Malhotra on 11/22 Consult ID for tomorrow am CAD No anginal pain Continue beta armen, aspirin, statin HISTORY OF ENDOCARDITIS S/p emergent MV replacement and AV replacement September 2014 in [place] Recent echo done on 09/21/16: The left ventricle is normal in size. There is mild concentric left ventricular hypertrophy. There is mild global hypokinesis of the left ventricle. Ejection Fraction = 45-50%. The left atrium is mildly dilated. There is a bioprosthetic aortic valve. The gradient is normal for this prosthetic aortic valve. Bioprosthetic leaflets are thin and move normally. There is no aortic valvular vegetation. There is a bioprosthetic mitral valve. Bioprosthesis leaflets are thin and move normally. There are no vegetations on this prosthetic mitral valve. There is no mitral valve stenosis. There is no mitral regurgitation noted. CHRONIC NECK PAIN Continue Nucynta DEPRESSION Continue Cymbalta DVT PROPHYLAXIS On Coumadin FULL CODE As per discussion with patient on recent admission DISPOSITION Currently at [facility] updated by phone on 11/[address] Martha Cano for primary care Patient seen in collaboration with Dr. Ojeda. Please see his addendum. VTE Prophylaxis VTE Risk Assessment Done? Y/N: Yes Risk Level: Moderate
--- NOTE | 2016-11-21 20:39 | History and Physical ---
History & Physical Date of Service November 21, 2016. History & Physical This is a 71 year old male with a PMH of osteomyelitis of the R great toe, recently amputated, hx. of coronary artery disease s/p CABG, bioprosthetic aortic/mitral valve replacement, hx. of multiples TIAs presented from [facility] due to possible TIA vs. CVA - states that his R side of his face/lips felt swollen and droopy and his R lower extremity was weak. Had carotid U/S done at [facility], showing 50% blockage b/l carotids - this was done yesterday (symptoms began on November 20) - he was sent over due to his symptoms not being resolved. Head CT = no acute findings On exam - mild facial droop on R, there is some weakness of his right lower extremity, R foot in boot Plan: repeat Head CT in AM No MRIs due to sternotomy wires, no IV dye due to allergy aspirin 162mg, Coumadin - therapeutic INR continue high intensity statin - Pravachol 80mg neurology consultation for further input echo done in September - LVEF ~ 45% will consult ID - patient was to be on 7 days of vancomycin post-operatively; due to rash, this was stopped around day 4-5 was to see ID on 11/22 - will consult for input while inpatient WBC slightly elevated, though no fevers/chills, hemodynamically stable, afebrile , does not seem infectious
[2016-11-21] MEDS: INSULIN DETEMIR FLEXPEN/FLEX TOUCH 100 UNITS/ML 3ML SC SCH (21:11)
[2016-11-21] MEDS: PRAVASTATIN SOD 40 MG TAB PO SCH (21:12)
[2016-11-21] MEDS: TAPENTADOL ER 50 MG TABCR PO SCH (21:17)
[2016-11-21 23:46] VITALS: BP 119/72; PULSE 75; TEMP 36.5; O2SAT 93
[2016-11-22] VITALS (7 sets, daily range): BP systolic 95–149; BP diastolic 58–93; PULSE 68–91; TEMP 36.4–36.8; O2SAT 92–95; Ht 182.9 cm; Wt 133.3 kg
[2016-11-22 06:57] LABS: ESTIMATED AVERAGE GLUCOSE 214 mg/dl; HA1C FLAG Normal (Normal)
--- NOTE | 2016-11-22 07:13 | DIAGNOSTIC IMAGING REPORT ---
HEAD CT NONCONTRAST CT DOSE: 537.48 mGy.cm HISTORY: Altered mental status. Stroke TECHNIQUE: Multiaxial CT images of the head were performed without the use of intravenous contrast. Automated exposure control was utilized for this study. Comparison: Head CT 11/21/2016. Findings: The paranasal sinuses and mastoid air cells are clear. The calvarium and skull base are intact. There is no mass, hematoma, midline shift, acute infarct. White matter hypodensity is nonspecific but suggestive of microvascular ischemic change. The ventricles and sulci demonstrate mild age-related involutional changes. Prominent anterior extra-axial spaces is likely due to atrophy. Impression: No significant change compared to the prior study. No acute intracranial abnormality. Electronically signed by: Ralph Robles M.D. 11/22/2016 7:12 AM Dictated Date/Time: 11/22/2016 7:10 AM
[2016-11-22] MEDS: PANTOprazole SOD 40 MG TAB PO SCH (07:44)
[2016-11-22] MEDS: DULOXETINE (CYMBALTA) 30 MG CAP PO SCH (07:44)
[2016-11-22] MEDS: MAGNESIUM OXIDE 400 MG TAB PO SCH (07:44)
[2016-11-22] MEDS: METOPROLOL SUCC 50MG EXT REL TAB PO SCH (07:45)
[2016-11-22] MEDS: POLYETHYLENE (MIRALAX) 17 GM PACK PO SCH (07:45)
[2016-11-22] MEDS: ASPIRIN 81 MG CHEW PO SCH (07:45)
[2016-11-22] MEDS: INSULIN ASPART 100 UNITS/ML 3 ML PEN SC SCH ×4 (07:48→20:21)
[2016-11-22] MEDS: TAPENTADOL ER 50 MG TABCR PO SCH ×2 (07:52→20:13)
[2016-11-22 08:05] LABS: BASO % 2.3 %; BASO ABS # 0.23 K/uL (0-0.2); COMPLETE YES; EOS % 6.4 %; HEMATOCRIT 46.7 % (42-52); IG% 0.4 %; LYMPH % 34.9 %; LYMPH ABS # 3.49 K/uL (1.2-3.4); MEAN CELL VOLUME 91.9 fL (80-100); MEAN CORPUSCULAR HEMOGLOBIN 30.9 pg (25-34); MEAN CORPUSCULAR HGB CONC 33.6 g/dl (32-36); MEAN PLATELET VOLUME 11.2 fL (7.4-10.4); MONO % 9.2 %; NEUT % 46.8 %; PLATELET COUNT 221 K/uL (130-400); RED BLOOD COUNT 5.08 M/uL (4.7-6.1)
[2016-11-22 08:18] LABS: INR 1.7 (0.9-1.1); PROTHROMBIN TIME (PATIENT) 19.1 SECONDS (9.0-12.0)
[2016-11-22 08:39] LABS: BUN/CREATININE RATIO 25.2 (10-20); CREATININE 0.85 mg/dl (0.60-1.40); POTASSIUM 4.2 mmol/L (3.5-5.1)
[2016-11-22 08:42] LABS: CHOLESTEROL/HDL RATIO 5.5
[2016-11-22 09:00] LABS: CALCIUM 9.5 mg/dl (8.5-10.1)
[2016-11-22] MEDS: ACETAMINOPHEN 325 MG TAB PO PRN ×2 (12:02→20:14)
--- NOTE | 2016-11-22 13:55 | Progress Note ---
Medicine Progress Note Date & Time of Visit: November 22, 2016 at 13:39. Subjective Pt was seen and examined Sitting in bed comfortable with no distress Pt said that he is still having some numbness in his right facial area with some right side weakness He denies any chest pain, palpitation, dizziness Objective Last 8 Hrs Date Time Temp Pulse Resp B/P Pulse Ox O2 Delivery O2 Flow Rate FiO2 11/22/16 12:00 Room Air 11/22/16 11:02 36.6 68 20 109/70 94 Room Air 11/22/16 08:00 Room Air 11/22/16 07:25 36.4 81 20 95/58 95 Room Air Physical Exam: General- No acute distress, Head- atraumatic Eyes- PERRL, EOMI ENT- oropharynx clear Neck- supple, no JVD Lungs- clear to auscultation and percussion Heart- no murmur Abdomen- normal bowel sounds, soft Extremities- no calf tenderness Neuro- alert, oriented x 3; PERRL, EOMI; facial symmetry no dysarthria; decrease motor solutions specialist in right hand Skin- warm & dry Laboratory Results: Last 24 Hours Test 11/21/16 18:03 11/21/16 18:11 11/22/16 07:01 11/22/16 07:55 White Blood Count 11.49 K/uL 10.00 K/uL Red Blood Count 4.87 M/uL 5.08 M/uL Hemoglobin 14.8 g/dL 15.7 g/dL Hematocrit 45.0 % 46.7 % Mean Corpuscular Volume 92.4 fL 91.9 fL Mean Corpuscular Hemoglobin 30.4 pg 30.9 pg Mean Corpuscular Hemoglobin Concent 32.9 g/dl 33.6 g/dl Platelet Count 208 K/uL 221 K/uL Mean Platelet Volume 10.7 fL 11.2 fL Neutrophils (%) (Auto) 50.5 % 46.8 % Lymphocytes (%) (Auto) 32.6 % 34.9 % Monocytes (%) (Auto) 9.7 % 9.2 % Eosinophils (%) (Auto) 5.0 % 6.4 % Basophils (%) (Auto) 1.8 % 2.3 % Neutrophils # (Auto) 5.81 K/uL 4.68 K/uL Lymphocytes # (Auto) 3.74 K/uL 3.49 K/uL Monocytes # (Auto) 1.11 K/uL 0.92 K/uL Eosinophils # (Auto) 0.57 K/uL 0.64 K/uL Basophils # (Auto) 0.21 K/uL 0.23 K/uL RDW Standard Deviation 44.9 fL 45.0 fL RDW Coefficient of Variation 13.2 % 13.3 % Immature Granulocyte % (Auto) 0.4 % 0.4 % Immature Granulocyte # (Auto) 0.05 K/uL 0.04 K/uL Prothrombin Time 23.9 SECONDS 19.1 SECONDS Prothromb Time International Ratio 2.2 1.7 Activated Partial Thromboplast Time 30.8 SECONDS Partial Thromboplastin Ratio 1.2 Sodium Level 137 mmol/L 137 mmol/L Potassium Level 4.2 mmol/L 4.2 mmol/L Chloride Level 100 mmol/L 101 mmol/L Carbon Dioxide Level 31 mmol/L 27 mmol/L Anion Gap 6.0 mmol/L 9.0 mmol/L Blood Urea Nitrogen 21 mg/dl 21 mg/dl Creatinine 0.87 mg/dl 0.85 mg/dl Est Creatinine Clear Calc Drug Dose 120.1 ml/min 122.1 ml/min Estimated GFR () 102.1 103.0 Estimated GFR (Non- 88.1 88.9 BUN/Creatinine Ratio 24.3 25.2 Random Glucose 160 mg/dl 177 mg/dl Estimated Average Glucose 214 mg/dl Hemoglobin A1c 9.1 % Calcium Level 9.9 mg/dl 9.5 mg/dl Total Creatine Kinase 41 U/L Creatine Kinase MB 2.7 ng/ml Creatine Kinase MB Ratio 6.6 Troponin I < 0.015 ng/ml Bedside Prothrombin Time INR 2.0 Bedside Glucose 149 mg/dl 186 mg/dl Triglycerides Level 349 mg/dl Cholesterol Level 159 mg/dl HDL Cholesterol 29 mg/dl LDL Cholesterol, Calculated 60 mg/dl VLDL Cholesterol, Calculated 70 mg/dl Cholesterol/HDL Ratio 5.5 Test 11/22/16 11:05 Bedside Glucose 177 mg/dl Date/Time Source Procedure Growth Status 11/21/16 21:45 Nasal MRSA DNA Surveillance Screen - Final Specimen Negative for MRSA by DNA Probe Complete Assessment & Plan STROKE LIKE SYMPTOMS Possible Related to TIA Need to R/O rule CVA Risk factors Afib history of TIA, DM type 2 CT head- negative for any acute intracranial abnormality Carotid ultrasound done as outpatient on 11/20/16- bilateral vertebral arteries not visualized, these may be preocclusive or occluded. Further evaluation recommended. Bilateral carotid plaque disease with less than 50% internal carotid artery stenosis. Repeat CT head this morning shown no finding Considered CTA head/ neck however patient has dye allergy Continue aspirin 162 mg daily, Coumadin, statin Neuro checks PT, OT, speech consultation Neurology Consulted PAROXYSMAL ATRIAL FIBRILLATION Currently in NSR Continue Toprol INR therapeutic at 1.7 Continue Coumadin monitor INR DM TYPE 2 Recent Hba1c 9.1 (11/22/16) Continue long acting insulin Insulin sliding scale coverage Monitor BSG AC HS RECENT RIGHT GREAT TOE OSTEOMYELITIS S/p right great toe amputation 11/10/[address] Ortega Discharged on Vancomycin- was supposed to take for 7 days postop as per ID but was stopped on 11/15 due to hives reaction; PICC line removed ID Consulted CAD Asymptomatic Continue beta armen, aspirin, statin HISTORY OF ENDOCARDITIS S/p emergent MV replacement and AV replacement September 2014 in [place] Recent echo done on 09/21/16: The left ventricle is normal in size. There is mild concentric left ventricular hypertrophy. There is mild global hypokinesis of the left ventricle. Ejection Fraction = 45-50%. The left atrium is mildly dilated. There is a bioprosthetic aortic valve. The gradient is normal for this prosthetic aortic valve. Bioprosthetic leaflets are thin and move normally. There is no aortic valvular vegetation. There is a bioprosthetic mitral valve. Bioprosthesis leaflets are thin and move normally. There are no vegetations on this prosthetic mitral valve. There is no mitral valve stenosis. There is no mitral regurgitation noted. CHRONIC NECK PAIN Continue Nucynta DEPRESSION Continue Cymbalta DVT PROPHYLAXIS On Coumadin CODE STATUS FULL CODE DISPOSITION Currently at [facility] Follows with Dr. Martha Cano for primary care Consultants: Neuro ID Current Inpatient Medications: Current Inpatient Medications Medications (Trade) Dose Ordered Sig/Eder Route Start Time Stop Time Status Last Admin Dose Admin Acetaminophen (Tylenol Tab) 650 mg Q4H PRN PO 11/21/16 18:30 12/21/16 18:29 11/22/16 12:02 650 MG Ondansetron HCl (Zofran Inj) 4 mg Q6H PRN IV 11/21/16 18:30 12/21/16 18:29 Insulin Aspart (novoLOG ASPART) SLIDING SCALE If C... ACHS SC 11/21/16 21:00 12/21/16 20:59 11/22/16 11:58 7 UNITS Glucose (Glucose 40% Gel) 15-30 GRAMS 15 GRAMS... UD PRN PO 11/21/16 19:30 12/21/16 19:29 Glucose (Glucose Chew Tab) 4-8 Tablets 4 Tabl... UD PRN PO 11/21/16 19:30 12/21/16 19:29 Dextrose (Dextrose 50% 50ML Syringe) 25-50ML OF 50% DW IV FOR... UD PRN IV 11/21/16 19:30 12/21/16 19:29 Glucagon (Glucagon Inj) 1 mg UD PRN SQ 11/21/16 19:30 12/21/16 19:29 Miscellaneous Information (Pharmacist Discharge Med Rec Consult) 1 ea UD PRN N/A 11/21/16 19:30 12/21/16 19:29 Aspirin (Aspirin Chew) 162 mg DAILY PO 11/22/16 09:00 12/22/16 08:59 11/22/16 07:45 162 MG Diphenhydramine HCl (Benadryl Cap) 25 mg HS PRN PO 11/21/16 20:00 12/21/16 19:59 Duloxetine HCl (Cymbalta Cap) 30 mg DAILY PO 11/22/16 09:00 12/22/16 08:59 11/22/16 07:44 30 MG Magnesium Oxide (Mag-Ox Tab) 400 mg QAM PO 11/22/16 09:00 12/22/16 08:59 11/22/16 07:44 400 MG Metoprolol Succinate (Toprol Xl Tab) 100 mg DAILY PO 11/22/16 09:00 12/22/16 08:59 11/22/16 07:45 100 MG Nitroglycerin (Nitrostat Tab) 0.4 mg UD PRN UT 11/21/16 19:45 12/21/16 19:44 Pantoprazole Sodium (Protonix Tab) 40 mg QAM PO 11/22/16 09:00 12/22/16 08:59 11/22/16 07:44 40 MG Tapentadol (Nucynta Tab) 50 mg Q8 PRN PO 11/21/16 19:45 12/05/16 19:44 Warfarin Sodium (Coumadin Tab) 3 mg Tu@1600 PO 11/28/16 16:00 12/28/16 15:59 Warfarin Sodium (Coumadin Tab) 6 mg SuMoWeThFrSa@1600 PO 11/22/16 16:00 12/22/16 15:59 Albuterol (Ventolin Hfa Inhaler) 2 puffs Q6H PRN INH 11/21/16 20:00 12/21/16 19:59 Insulin Detemir (Levemir Flexpen/ FlexTouch) 15 unit PM SC 11/21/16 21:00 12/21/16 20:59 11/21/16 21:11 15 UNIT Polyethylene (Miralax Powder Packet) 17 gm QAM PO 11/22/16 09:00 12/22/16 08:59 11/22/16 07:45 17 GM Tapentadol (Nucynta Er Tab) 100 mg Q12 PO 11/21/16 21:00 12/21/16 20:59 11/22/16 07:52 100 MG Pravastatin Sodium (Pravachol Tab) 80 mg HS PO 11/21/16 21:00 12/21/16 20:59 11/21/16 21:12 80 MG
--- NOTE | 2016-11-22 14:38 | Progress Note ---
Progress Note Date of Service November 22, 2016. Progress Note ID Consult Dictated #[id number] A/P: 1. toe osteo - s/p amp -ok to follow off of abx, for suture removal next week -thank you
--- NOTE | 2016-11-22 15:23 | INFECT. DISEASE CONSULTATION ---
DATE OF CONSULTATION: 11/22/2016 REQUESTING PHYSICIAN: Zenia Hdz MD HISTORY OF PRESENT ILLNESS: This is a 71-year-old gentleman who was recently discharged after he underwent toe amputation for osteomyelitis. His previous cultures grew enterococcus. He was initially on daptomycin therapy that had significant reaction to this and was subsequently placed on twice daily vancomycin. He tolerated his procedure well and was discharged to [facility] in stable condition. He then unfortunately developed diffuse body rash while at [facility] and I was notified of this verbally. His vancomycin was held some days ago and his rash has almost completely resolved. He does have MULTIPLE ALLERGIES AND DRUG-DRUG INTERACTIONS and has been currently maintained off of antibiotics for the past few days. He did have an orthopedic visit yesterday and states that the wound is healing well and his orthopedic physicians were satisfied with his progress postoperatively. He was to have an office visit in the wound care center this morning with myself as well as the wound care team; however, he was hospitalized yesterday with right-sided weakness and facial drooping. A CAT scan of the head was negative and acute stroke was ruled out; however, he is being diagnosed with TIA. He states he feels about the same as he did yesterday. With regards to his foot, he denies any pain. He denies any fevers or chills. His rash has gone. He denies any itching. He remains afebrile off of antibiotics. On my examination, he is out of bed to chair. He has no complaints. He denies any headache or visual complaints. He has no shortness of breath, cough, chest pain, nausea, vomiting, diarrhea or abdominal pain. All remaining review of systems are reviewed. He is to have his sutures removed next week. PAST MEDICAL HISTORY: Aortic aneurysm, angina, asthma, CVA, TIA, anticoagulation, COPD, depression, type 2 diabetes, history of DVT, high cholesterol, coronary artery disease, history of endocarditis, hypertension, history of AR, AFib. PAST SURGICAL HISTORY: Angioplasty, aortic valve replacement, cervical spine surgery, cataract surgery, CABG, mitral valve replacement and recent toe amputation. FAMILY HISTORY: Noncontributory. SOCIAL HISTORY: Significant for daily smoking. He is . He lives at home with family. He denies any sick contacts. He has no drug or alcohol use. ALLERGIES: HE HAS MULTIPLE ALLERGIES INCLUDING CLARITHROMYCIN, HYDROCORTISONE, MACROLIDE ANTIBIOTICS, PENICILLIN, SHELLFISH, LOSARTAN. CURRENT MEDICATIONS: Coumadin, aspirin, Cymbalta, magnesium, Toprol-XL, Protonix, MiraLax, NovoLog, Levemir, Nucynta, Pravachol, Benadryl, Ventolin, Nitrostat, Tylenol and Zofran. PHYSICAL EXAMINATION: VITAL SIGNS: He is afebrile, pulse 68, respiratory rate is in the 20s, blood pressure is 109/70, oxygen saturation is 94% on room air. GENERAL: He is awake, alert and oriented x3. He is in no acute distress. HEENT: Mucous membranes are moist. Extraocular muscles are intact. HEART: Regular. LUNGS: Clear. ABDOMEN: Soft. There is no edema. EXTREMITIES: Boot is in place over his foot. LABORATORY STUDIES: CBC today reveals a white blood cell count of 10, hemoglobin 15.7, platelets are 221. Chemistry panel reveals a sodium of 137, potassium 4.2, chloride 101, bicarbonate 27, BUN 21, creatinine 0.8 and glucose is 177. There is no micro to review from this admission. CT of the head is negative. ASSESSMENT AND PLAN: Toe osteomyelitis status post amputation. He has received course of antibiotics, both michael and postoperatively. He did have a rash which was likely attributed to vancomycin as it has resolved upon discontinuation of vancomycin. He will be followed off of antibiotics. There are no new ID recommendations at this time. Thank you for this consultation.
[2016-11-22] MEDS: WARFARIN SOD 6 MG TAB PO SCH (15:38)
--- NOTE | 2016-11-22 16:00 | Neurology Consultation ---
Neurology Consultation Date of Consultation: November 22, 2016. Attending Physician: Zenia Hdz M.D. Primary Care Physician: Martha Cano M.D. Reason for Consultation: stroke like symptoms History of Present Illness Source: patient Michele is a 71 year old male with PMH - PAF, TIA, DM type 2, CAD, hx of endocarditis. He was transferred from [facility] for stroke like symptoms. He was admitted at [facility] from November 06-November 13 for right great toe osteomyelitis and underwent amputation of right great toe 11/10/[address] Ortega and SOB attributed to viral URI vs. bronchitis. He was discharge on IV vancomycin for 7 days but was unable to tolerated due to rash. He is currently not on antibiotics. He was seen in ortho CORIE in clinic and was told his amputation site looked good. The symptoms of facial numbness started about a week ago "fat lip", drooling, intermittent slurred speech, head feeling "big", right eye blurry vision. The symptoms have persisted. He had multiple TIA's in the past with right sided weakness. He has seen neurology Dr. Howe in September and he was doing well. He does have chronic EASTON but no change. denies headache, swallowing difficulty, abdominal pain, vomiting, diarrhea, urinary changes, +right sided weakness, drooling. Past Medical/Surgical History Medical Problems: (1) Acute chest pain Status: Acute (2) CVA (cerebral vascular accident) Status: Acute Social History Smoking Status: Former smoker Marital Status: Housing Status: lives with significant other Occupation Status: retired Allergies Coded Allergies: Clarithromycin (Verified Allergy, Severe, SHORTNESS OF BREATH, 11/01/16) Rash Hydrocodone (Verified Allergy, Severe, HIVES, RESP DISTRESS, 11/01/16) Macrolides (Verified Allergy, Severe, HIVES, RESP DISTRESS, 11/01/16) Penicillins (Verified Allergy, Severe, HIVES, RESP DISTRESS, 11/01/16) Tolerated Ceftriaxone Shellfish Allergy (Verified Allergy, Severe, HIVES, RESP DISTRESS, 11/01/16 ) Tuberculin Purified Protein Derivat (Verified Allergy, Severe, HIVES, RESP DISTRESS, 11/01/16) Vancomycin (Verified Allergy, Intermediate, rash, 11/21/16) Daptomycin (Verified Allergy, Unknown, chest pain, N/V, 11/21/16) Iodine (Verified Allergy, Unknown, HIVES, RESP DISTRESS, 11/01/16) Losartan (Verified Allergy, Unknown, HIVES, RESP DISTRESS, 11/01/16) Iodinated Diagnostic Agents (Verified Adverse Reaction, Severe, SHORTNESS OF BREATH, 11/01/16) X-RAY DYE Current Inpatient Medications Current Inpatient Medications Medications (Trade) Dose Ordered Sig/Eder Route Start Time Stop Time Status Last Admin Dose Admin Acetaminophen (Tylenol Tab) 650 mg Q4H PRN PO 11/21/16 18:30 12/21/16 18:29 11/22/16 12:02 650 MG Ondansetron HCl (Zofran Inj) 4 mg Q6H PRN IV 11/21/16 18:30 12/21/16 18:29 Insulin Aspart (novoLOG ASPART) SLIDING SCALE If C... ACHS SC 11/21/16 21:00 12/21/16 20:59 11/22/16 11:58 7 UNITS Glucose (Glucose 40% Gel) 15-30 GRAMS 15 GRAMS... UD PRN PO 11/21/16 19:30 12/21/16 19:29 Glucose (Glucose Chew Tab) 4-8 Tablets 4 Tabl... UD PRN PO 11/21/16 19:30 12/21/16 19:29 Dextrose (Dextrose 50% 50ML Syringe) 25-50ML OF 50% DW IV FOR... UD PRN IV 11/21/16 19:30 12/21/16 19:29 Glucagon (Glucagon Inj) 1 mg UD PRN SQ 11/21/16 19:30 12/21/16 19:29 Miscellaneous Information (Pharmacist Discharge Med Rec Consult) 1 ea UD PRN N/A 11/21/16 19:30 12/21/16 19:29 Aspirin (Aspirin Chew) 162 mg DAILY PO 11/22/16 09:00 12/22/16 08:59 11/22/16 07:45 162 MG Diphenhydramine HCl (Benadryl Cap) 25 mg HS PRN PO 11/21/16 20:00 12/21/16 19:59 Duloxetine HCl (Cymbalta Cap) 30 mg DAILY PO 11/22/16 09:00 12/22/16 08:59 11/22/16 07:44 30 MG Magnesium Oxide (Mag-Ox Tab) 400 mg QAM PO 11/22/16 09:00 12/22/16 08:59 11/22/16 07:44 400 MG Metoprolol Succinate (Toprol Xl Tab) 100 mg DAILY PO 11/22/16 09:00 12/22/16 08:59 11/22/16 07:45 100 MG Nitroglycerin (Nitrostat Tab) 0.4 mg UD PRN UT 11/21/16 19:45 12/21/16 19:44 Pantoprazole Sodium (Protonix Tab) 40 mg QAM PO 11/22/16 09:00 12/22/16 08:59 11/22/16 07:44 40 MG Tapentadol (Nucynta Tab) 50 mg Q8 PRN PO 11/21/16 19:45 12/05/16 19:44 Warfarin Sodium (Coumadin Tab) 3 mg Tu@1600 PO 11/28/16 16:00 12/28/16 15:59 Warfarin Sodium (Coumadin Tab) 6 mg SuMoWeThFrSa@1600 PO 11/22/16 16:00 12/22/16 15:59 11/22/16 15:38 6 MG Albuterol (Ventolin Hfa Inhaler) 2 puffs Q6H PRN INH 11/21/16 20:00 12/21/16 19:59 Insulin Detemir (Levemir Flexpen/ FlexTouch) 15 unit PM SC 11/21/16 21:00 12/21/16 20:59 11/21/16 21:11 15 UNIT Polyethylene (Miralax Powder Packet) 17 gm QAM PO 11/22/16 09:00 12/22/16 08:59 11/22/16 07:45 17 GM Tapentadol (Nucynta Er Tab) 100 mg Q12 PO 11/21/16 21:00 12/21/16 20:59 11/22/16 07:52 100 MG Pravastatin Sodium (Pravachol Tab) 80 mg HS PO 11/21/16 21:00 12/21/16 20:59 11/21/16 21:12 80 MG Physical Exam Vital Signs (Past 24 Hrs): Date Time Temp Pulse Resp B/P Pulse Ox O2 Delivery O2 Flow Rate FiO2 11/22/16 14:00 76 93 11/22/16 12:00 Room Air 11/22/16 11:02 36.6 68 20 109/70 94 Room Air 11/22/16 08:00 Room Air 11/22/16 07:25 36.4 81 20 95/58 95 Room Air 11/22/16 04:04 36.6 82 18 149/93 93 Room Air 11/22/16 04:00 Room Air 11/21/16 23:59 Room Air 11/21/16 23:46 36.5 75 22 119/72 93 Room Air 11/21/16 20:00 Room Air 11/21/16 19:45 36.7 71 20 132/71 95 Room Air 11/21/16 19:36 36.9 68 15 113/77 96 11/21/16 19:11 68 15 113/77 96 11/21/16 19:06 69 17 96 11/21/16 19:01 69 19 96 11/21/16 18:56 75 18 95 11/21/16 18:51 72 16 92 11/21/16 18:46 69 24 11/21/16 18:41 68 18 96 11/21/16 18:36 69 17 97 11/21/16 18:31 70 15 99 11/21/16 18:26 72 17 97 11/21/16 18:21 70 14 94 11/21/16 18:16 69 16 94 11/21/16 18:11 68 19 11/21/16 17:56 68 15 95 11/21/16 17:41 68 16 93 11/21/16 17:26 69 17 95 11/21/16 17:20 95 Room Air 11/21/16 17:08 72 11/21/16 16:56 72 17 94 11/21/16 16:41 69 20 96 11/21/16 16:27 36.9 72 18 129/69 95 Room Air 11/21/16 16:26 71 16 92 11/21/16 16:15 129/69 Physical Exam: Constitutional: appearance nourished, obese Ears, Nose, Mouth and Throat: mucous membranes moist, no injection and skin normal, eyes normal Cardiovascular: irregular Respiratory: course breath sounds Musculoskeletal: no peripheral edema Skin: no neurocutaneous scattered angular lesions Eyes: extraocular muscles intact (EOMI) and pupils equal, round and reactive to light (PERRL) NEUROLOGIC EXAMINATION: Mental status: Alert and interactive Oriented to full date and location Oriented to person Speech fluent with no evidence of aphasia Cranial Nerves eye brow raise symmetric, slight right facial droop Reflexes: Deep tendon reflexes were symmetrical and graded 2/5. Plantar responses were flexor. Sensory: decrease sensation vibration, cool touch from arguello down, GT proprioception absent on right, left foot wrapped due to GT surgery Coordination: + close eyes Gait/Stance: Posture normal, stands without assistance, Motor: Negative for pronator drift of out stretched arms with eyes closed. Strength: Normal - 5/5 all extremities Laboratory Results Past 24 Hours: 11/22/16 07:55 Red Blood Count 5.08, Mean Corpuscular Volume 91.9, Mean Corpuscular Hemoglobin 30.9, Mean Corpuscular Hemoglobin Concent 33.6, Mean Platelet Volume 11.2, Neutrophils (%) (Auto) 46.8, Lymphocytes (%) (Auto) 34.9, Monocytes (%) (Auto) 9.2, Eosinophils (%) (Auto) 6.4, Basophils (%) (Auto) 2.3, Neutrophils # (Auto) 4.68, Lymphocytes # (Auto) 3.49, Monocytes # (Auto) 0.92, Eosinophils # (Auto) 0.64, Basophils # (Auto) 0.23 11/22/16 07:55 Test 11/21/16 18:03 11/21/16 18:11 11/22/16 07:55 11/22/16 11:05 Activated Partial Thromboplast Time 30.8 SECONDS (21.0-31.0) Partial Thromboplastin Ratio 1.2 Estimated Average Glucose 214 mg/dl Hemoglobin A1c 9.1 % (4.5-5.6) Total Creatine Kinase 41 U/L (39-308) Creatine Kinase MB 2.7 ng/ml (0.5-3.6) Creatine Kinase MB Ratio 6.6 (0-3.0) Troponin I < 0.015 ng/ml (0-0.045) Bedside Prothrombin Time INR 2.0 (0.9-1.1) White Blood Count 10.00 K/uL (4.8-10.8) Red Blood Count 5.08 M/uL (4.7-6.1) Hemoglobin 15.7 g/dL (14.0-18.0) Hematocrit 46.7 % (42-52) Mean Corpuscular Volume 91.9 fL (80-100) Mean Corpuscular Hemoglobin 30.9 pg (25-34) Mean Corpuscular Hemoglobin Concent 33.6 g/dl (32-36) Platelet Count 221 K/uL (130-400) Mean Platelet Volume 11.2 fL (7.4-10.4) Neutrophils (%) (Auto) 46.8 % Lymphocytes (%) (Auto) 34.9 % Monocytes (%) (Auto) 9.2 % Eosinophils (%) (Auto) 6.4 % Basophils (%) (Auto) 2.3 % Neutrophils # (Auto) 4.68 K/uL (1.4-6.5) Lymphocytes # (Auto) 3.49 K/uL (1.2-3.4) Monocytes # (Auto) 0.92 K/uL (0.11-0.59) Eosinophils # (Auto) 0.64 K/uL (0-0.5) Basophils # (Auto) 0.23 K/uL (0-0.2) RDW Standard Deviation 45.0 fL (36.4-46.3) RDW Coefficient of Variation 13.3 % (11.5-14.5) Immature Granulocyte % (Auto) 0.4 % Immature Granulocyte # (Auto) 0.04 K/uL (0.00-0.02) Prothrombin Time 19.1 SECONDS (9.0-12.0) Prothromb Time International Ratio 1.7 (0.9-1.1) Anion Gap 9.0 mmol/L (3-11) Est Creatinine Clear Calc Drug Dose 122.1 ml/min Estimated GFR () 103.0 Estimated GFR (Non- 88.9 BUN/Creatinine Ratio 25.2 (10-20) Calcium Level 9.5 mg/dl (8.5-10.1) Triglycerides Level 349 mg/dl (0-150) Cholesterol Level 159 mg/dl (0-200) HDL Cholesterol 29 mg/dl LDL Cholesterol, Calculated 60 mg/dl VLDL Cholesterol, Calculated 70 mg/dl Cholesterol/HDL Ratio 5.5 Bedside Glucose 177 mg/dl (70-99) Date/Time Source Procedure Growth Status 11/21/16 21:45 Nasal MRSA DNA Surveillance Screen - Final Specimen Negative for MRSA by DNA Probe Complete Imaging CT head- Findings: The paranasal sinuses and mastoid air cells are clear. The calvarium and skull base are intact. There is no mass, hematoma, midline shift, acute infarct. White matter hypodensity is nonspecific but suggestive of microvascular ischemic change. The ventricles and sulci demonstrate mild age- related involutional changes. Prominent anterior extra-axial spaces is likely due to atrophy. CXR- FINDINGS: The heart is mildly enlarged. There are postsurgical changes of a midline sternotomy. The right-sided PICC catheter has been removed. There is no failure. There is no focal pulmonary consolidation. There are no pleural effusions. Impression 71 year old with stroke like symptoms Plan 1. optimize coumadin therapy- not currently fully coagulated 2. orthostatic checked and were positive- may need cardiology input for treatment adjustments 3. PT/OT/speech for discharge needs 4. MRI brain with and without to define whether recurrent strokes/vs TIA 5. EEG -possible seizure activity 6. further input after MRI is completed-cardiac information sent to radiology for review I have seen and discussed above patient with Dr Beba Gutierrez, neurology Pt seen and examined. Multiple presentations of subjective facial droop and mild R hemiparesis lasting 7-10 d, without altered consciousness and generally without headache. Unclear if pt has had a prior stroke with the aforementioned sx. If so it would be lacunar as no large vessel infarcts seen on multiple /ct head. Exam, mild dysartrhia, marginal r hemiparesis (?) without drift. Reflexes symmetric, symmetric LT. Diffential of these events include toxic metabolic worsening of prior stroke signs/symptoms, TIA, seizure, migraine (doubt). Rec MRI brain, mra COW, r/o MCA stenosis, EEG. I doubt this is related to pt valve, , infection given the stereotyped nature of his symptoms. Will follow with you, CURTIS Gutierrez MD
[2016-11-22] MEDS ORDERED: LORAZEPAM 2 MG/ML 1 ML VIAL IV SCH (18:00)
[2016-11-22] MEDS: PRAVASTATIN SOD 40 MG TAB PO SCH (20:15)
[2016-11-22] MEDS: INSULIN DETEMIR FLEXPEN/FLEX TOUCH 100 UNITS/ML 3ML SC SCH (20:21)
[2016-11-22] MEDS: TAPENTADOL HCL 50 MG TAB PO PRN (23:44)
[2016-11-23] VITALS (7 sets, daily range): BP systolic 104–135; BP diastolic 65–83; PULSE 66–86; TEMP 36.3–36.8; O2SAT 91–96
[2016-11-23 06:51] LABS: BASO ABS # 0.13 K/uL (0-0.2); COMPLETE YES; EOS % 8.8 %; HEMATOCRIT 44.7 % (42-52); IG% 0.6 %; LYMPH % 39.3 %; MEAN CELL VOLUME 92.2 fL (80-100); MEAN CORPUSCULAR HEMOGLOBIN 30.5 pg (25-34); MEAN CORPUSCULAR HGB CONC 33.1 g/dl (32-36); MONO % 13.1 %; NEUT % 36.2 %; PLATELET COUNT 175 K/uL (130-400); RED BLOOD COUNT 4.85 M/uL (4.7-6.1); WHITE BLOOD COUNT 6.62 K/uL (4.8-10.8)
[2016-11-23] MEDS: INSULIN ASPART 100 UNITS/ML 3 ML PEN SC SCH ×4 (07:00→21:02)
[2016-11-23 07:05] LABS: INR 1.6 (0.9-1.1)
[2016-11-23 07:23] LABS: BUN/CREATININE RATIO 17.4 (10-20); CALCIUM 9.2 mg/dl (8.5-10.1); CREATININE 0.9 mg/dl (0.60-1.40); POTASSIUM 3.8 mmol/L (3.5-5.1)
[2016-11-23] MEDS ORDERED: LORAZEPAM 2 MG/ML 1 ML VIAL ONE (07:35)
--- NOTE | 2016-11-23 09:14 | DIAGNOSTIC IMAGING REPORT ---
MR ANGIOGRAPHY OF THE [place] NO CONTRAST CLINICAL HISTORY: Right-sided numbness and gait instability. Possible intracranial stenosis. COMPARISON STUDY: None. A 3-D [id number] MR angiographic sequence of the [place] was performed. Both the source and projection images were reviewed. There is no evidence of major intracranial branch occlusion. There is no evidence of intracranial stenosis. There are no lesions suspicious for aneurysm. There is a dominant left vertebral artery. IMPRESSION: Unremarkable MR angiography of the [place]. Electronically signed by: David Mantilla M.D. 11/23/2016 9:13 AM Dictated Date/Time: 11/23/2016 9:11 AM
--- NOTE | 2016-11-23 09:58 | DIAGNOSTIC IMAGING REPORT ---
MRI OF THE BRAIN WITHOUT AND WITH IV CONTRAST CLINICAL HISTORY: stroke like symptoms RIGHT-SIDED LIP NUMBNESS AND GAIT INSTABILITY. COMPARISON STUDY: Noncontrast head CT dated 11/22/2016 TECHNIQUE: MRI of the brain was performed from the vertex to the skull base utilizing various T1 and T2 weighted sequences. Following the IV administration of 13 mL of Gadavist contrast, additional enhanced images were obtained. FINDINGS: Sagittal T1, axial diffusion, proton density and T2 weighted axial, coronal FLAIR, and pre and post axial T1-weighted images were acquired. These were supplemented with post gadolinium coronal T1 weighted images. No intra or extra-axial mass lesions are visualized. Axial diffusion-weighted images reveal no evidence of acute or subacute infarction. There is no evidence of ventricular dilatation. Proton density T2-weighted and FLAIR images reveal scattered foci of increased T2 signal within the white matter, likely on a small vessel basis. There are no abnormal flow voids. There is no evidence of pathologic enhancement. IMPRESSION: 1. No acute intracranial findings 2. No evidence of acute or subacute infarction 3. No evidence of intracranial mass 4. Scattered foci of increased T2 signal within the white matter likely on a small vessel basis Electronically signed by: David Mantilla M.D. 11/23/2016 9:57 AM Dictated Date/Time: 11/23/2016 9:18 AM
[2016-11-23] MEDS: ASPIRIN 81 MG CHEW PO SCH (10:07)
[2016-11-23] MEDS: PANTOprazole SOD 40 MG TAB PO SCH (10:07)
[2016-11-23] MEDS: DULOXETINE (CYMBALTA) 30 MG CAP PO SCH (10:07)
[2016-11-23] MEDS: MAGNESIUM OXIDE 400 MG TAB PO SCH (10:07)
[2016-11-23] MEDS: METOPROLOL SUCC 50MG EXT REL TAB PO SCH (10:08)
[2016-11-23] MEDS: POLYETHYLENE (MIRALAX) 17 GM PACK PO SCH (10:08)
[2016-11-23] MEDS: TAPENTADOL ER 50 MG TABCR PO SCH ×2 (10:20→20:58)
--- NOTE | 2016-11-23 10:44 | Clinical Documentation Query ---
CLINICAL DOCUMENTATION QUERY Dr. STARK, In your clinical opinion is this patient being managed for: ( ) small vessel disease of the brain likely causing stroke like symptoms ( ) Other explanation of clinical findings (Please Explain) ( ) Unable to determine (Please Define) ( ) Need to Discuss ( ) Not Agree The medical record reflects the following clinical findings, treatment, and risk factors. Clinical Indicators: 71 yo male presenting with intermittent neurological symptoms including R LE weakness, fatigue, R sided lip numbness and drooling. CT head showed White matter hypodensity is nonspecific but suggestive of microvascular ischemic change. Treatment:neuro consult, coumadin therapy, MRI brain, EEG, ASA, toprol xl, Risk Factors: age, A fib, DM, CAD, smoker Small vessel disease of the brain is a distinct clinical entity. It includes lesions of the white matter and lacunar infarctions, and is a common finding on MRI scans of the elderly. Small vessel disease is associated with risk factors such as hypertension, atherosclerosis, and diabetes mellitus. There is an increased risk of cognitive decline, dementia, gait and balance disturbances and Parkinsonism among individuals with small vessel disease of the brain. Please clarify and document your clinical opinion in the progress notes and discharge summary. Terms such as "probable", "suspected", "likely", "questionable", "possible", or "still to be ruled out" are acceptable. IF IN AGREEMENT, YOU MUST DOCUMENT ABOVE DIAGNOSTIC STATEMENT IN DAILY PROGRESS NOTES AND DISCHARGE SUMMARY. This document is not part of the patient's record. Thank You, Evy Perez, RN [phone]
[2016-11-23] MEDS: TAPENTADOL HCL 50 MG TAB PO PRN (12:44)
--- NOTE | 2016-11-23 16:24 | Progress Note ---
Medicine Progress Note Date & Time of Visit: November 23, 2016 at 16:16. Subjective Pt was seen and examined sitting in chair comfortable with no distress eating lunch pt said that his symptoms seem to improve slightly denies any chest pain, palpitation, dizziness Objective Last 8 Hrs Date Time Temp Pulse Resp B/P Pulse Ox O2 Delivery O2 Flow Rate FiO2 11/23/16 15:20 36.3 72 20 126/83 93 Room Air 11/23/16 15:12 69 92 11/23/16 12:00 Room Air 11/23/16 11:43 36.3 18 116/83 92 Room Air 11/23/16 09:30 Room Air Physical Exam: General- No acute distress, Head- atraumatic Eyes- PERRL, EOMI ENT- oropharynx clear Neck- supple, no JVD Lungs- clear to auscultation and percussion Heart- no murmur Abdomen- normal bowel sounds, soft Extremities- no calf tenderness Neuro- alert, oriented x 3; PERRL, EOMI; facial symmetry no dysarthria Skin- warm & dry Laboratory Results: Last 24 Hours Test 11/22/16 20:19 11/23/16 06:14 11/23/16 06:32 11/23/16 11:21 Bedside Glucose 212 mg/dl 165 mg/dl 266 mg/dl White Blood Count 6.62 K/uL Red Blood Count 4.85 M/uL Hemoglobin 14.8 g/dL Hematocrit 44.7 % Mean Corpuscular Volume 92.2 fL Mean Corpuscular Hemoglobin 30.5 pg Mean Corpuscular Hemoglobin Concent 33.1 g/dl Platelet Count 175 K/uL Mean Platelet Volume 11.0 fL Neutrophils (%) (Auto) 36.2 % Lymphocytes (%) (Auto) 39.3 % Monocytes (%) (Auto) 13.1 % Eosinophils (%) (Auto) 8.8 % Basophils (%) (Auto) 2.0 % Neutrophils # (Auto) 2.40 K/uL Lymphocytes # (Auto) 2.60 K/uL Monocytes # (Auto) 0.87 K/uL Eosinophils # (Auto) 0.58 K/uL Basophils # (Auto) 0.13 K/uL RDW Standard Deviation 43.7 fL RDW Coefficient of Variation 13.1 % Immature Granulocyte % (Auto) 0.6 % Immature Granulocyte # (Auto) 0.04 K/uL Prothrombin Time 17.0 SECONDS Prothromb Time International Ratio 1.6 Sodium Level 137 mmol/L Potassium Level 3.8 mmol/L Chloride Level 101 mmol/L Carbon Dioxide Level 33 mmol/L Anion Gap 3.0 mmol/L Blood Urea Nitrogen 16 mg/dl Creatinine 0.90 mg/dl Est Creatinine Clear Calc Drug Dose 115.9 ml/min Estimated GFR () 100.6 Estimated GFR (Non- 86.8 BUN/Creatinine Ratio 17.4 Random Glucose 176 mg/dl Calcium Level 9.2 mg/dl Assessment & Plan STROKE LIKE SYMPTOMS Possible Related to TIA Need to R/O rule CVA Risk factors Afib history of TIA, DM type 2 CT head- negative for any acute intracranial abnormality Carotid ultrasound done as outpatient on 11/20/16- bilateral vertebral arteries not visualized, these may be preocclusive or occluded. Further evaluation recommended. Bilateral carotid plaque disease with less than 50% internal carotid artery stenosis. 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 Ortega Discharged on Vancomycin- was supposed to take for 7 days postop as per ID but was stopped on 11/15 due to hives reaction; PICC line removed ID Consulted recommended no abx for now Follow appt next week with Dr. 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 There is mild concentric left ventricular hypertrophy. There is mild global hypokinesis of the left ventricle. Ejection Fraction = 45-50%. The left atrium is mildly dilated. There is a bioprosthetic aortic valve. The gradient is normal for this prosthetic aortic valve. Bioprosthetic leaflets are thin and move normally. There is no aortic valvular vegetation. There is a bioprosthetic mitral valve. Bioprosthesis leaflets are thin and move normally. There are no vegetations on this prosthetic mitral valve. There is no mitral valve stenosis. There is no mitral regurgitation noted. CHRONIC NECK PAIN Continue Nucynta DEPRESSION Continue Cymbalta DVT PROPHYLAXIS On Coumadin SCDs CODE STATUS FULL CODE DISPOSITION Waiting for insurance approval for discharge to [facility] Follows with Dr. Martha Cano for primary care Consultants: Neuro ID Current Inpatient Medications: Current Inpatient Medications Medications (Trade) Dose Ordered Sig/Eder Route Start Time Stop Time Status Last Admin Dose Admin Acetaminophen (Tylenol Tab) 650 mg Q4H PRN PO 11/21/16 18:30 12/21/16 18:29 11/22/16 20:14 650 MG Ondansetron HCl (Zofran Inj) 4 mg Q6H PRN IV 11/21/16 18:30 12/21/16 18:29 Insulin Aspart (novoLOG ASPART) SLIDING SCALE If C... ACHS SC 11/21/16 21:00 12/21/16 20:59 11/23/16 12:37 10 UNITS Glucose (Glucose 40% Gel) 15-30 GRAMS 15 GRAMS... UD PRN PO 11/21/16 19:30 12/21/16 19:29 Glucose (Glucose Chew Tab) 4-8 Tablets 4 Tabl... UD PRN PO 11/21/16 19:30 12/21/16 19:29 Dextrose (Dextrose 50% 50ML Syringe) 25-50ML OF 50% DW IV FOR... UD PRN IV 11/21/16 19:30 12/21/16 19:29 Glucagon (Glucagon Inj) 1 mg UD PRN SQ 11/21/16 19:30 12/21/16 19:29 Miscellaneous Information (Pharmacist Discharge Med Rec Consult) 1 ea UD PRN N/A 11/21/16 19:30 12/21/16 19:29 Aspirin (Aspirin Chew) 162 mg DAILY PO 11/22/16 09:00 12/22/16 08:59 11/23/16 10:07 162 MG Diphenhydramine HCl (Benadryl Cap) 25 mg HS PRN PO 11/21/16 20:00 12/21/16 19:59 Duloxetine HCl (Cymbalta Cap) 30 mg DAILY PO 11/22/16 09:00 12/22/16 08:59 11/23/16 10:07 30 MG Magnesium Oxide (Mag-Ox Tab) 400 mg QAM PO 11/22/16 09:00 12/22/16 08:59 11/23/16 10:07 400 MG Metoprolol Succinate (Toprol Xl Tab) 100 mg DAILY PO 11/22/16 09:00 12/22/16 08:59 11/23/16 10:08 100 MG Nitroglycerin (Nitrostat Tab) 0.4 mg UD PRN UT 11/21/16 19:45 12/21/16 19:44 Pantoprazole Sodium (Protonix Tab) 40 mg QAM PO 11/22/16 09:00 12/22/16 08:59 11/23/16 10:07 40 MG Tapentadol (Nucynta Tab) 50 mg Q8 PRN PO 11/21/16 19:45 12/05/16 19:44 11/23/16 12:44 50 MG Warfarin Sodium (Coumadin Tab) 3 mg Tu@1600 PO 11/28/16 16:00 12/28/16 15:59 Warfarin Sodium (Coumadin Tab) 6 mg SuMoWeThFrSa@1600 PO 11/22/16 16:00 12/22/16 15:59 11/22/16 15:38 6 MG Albuterol (Ventolin Hfa Inhaler) 2 puffs Q6H PRN INH 11/21/16 20:00 12/21/16 19:59 Insulin Detemir (Levemir Flexpen/ FlexTouch) 15 unit PM SC 11/21/16 21:00 12/21/16 20:59 11/22/16 20:21 15 UNIT Polyethylene (Miralax Powder Packet) 17 gm QAM PO 11/22/16 09:00 12/22/16 08:59 11/23/16 10:08 17 GM Tapentadol (Nucynta Er Tab) 100 mg Q12 PO 11/21/16 21:00 12/21/16 20:59 11/23/16 10:20 100 MG Pravastatin Sodium (Pravachol Tab) 80 mg HS PO 11/21/16 21:00 12/21/16 20:59 11/22/16 20:15 80 MG
[2016-11-23] MEDS: WARFARIN SOD 6 MG TAB PO SCH (17:05)
--- NOTE | 2016-11-23 19:40 | Neurology Progress Notes ---
Neurology Progress Note Date of Service November 23, 2016. Anjelica Bautista is a 71 year old male with PMH - PAF, TIA, DM type 2, CAD, hx of endocarditis. He was transferred from [facility] for stroke like symptoms. He was admitted at [facility] from November 06-November 13 for right great toe osteomyelitis and underwent amputation of right great toe 11/10/[address] Ortega and SOB attributed to viral URI vs. bronchitis. He was discharge on IV vancomycin for 7 days but was unable to tolerated due to rash. He is currently not on antibiotics. He was seen in ortho PA-C in clinic and was told his amputation site looked good. The symptoms of facial numbness started about a week ago "fat lip", drooling, intermittent slurred speech, head feeling "big", right eye blurry vision. The symptoms have persisted. He had multiple TIA's in the past with right sided weakness. He has seen neurology Dr. Howe in September and he was doing well. He does have chronic E[place] but no change. denies headache, swallowing difficulty, abdominal pain, vomiting, diarrhea, urinary changes, +right sided numbness and weakness persisting Objective Date Time Temp Pulse Resp B/P Pulse Ox O2 Delivery O2 Flow Rate FiO2 11/23/16 18:56 36.3 86 20 135/75 91 Room Air 11/23/16 16:00 Room Air 11/23/16 15:20 36.3 72 20 126/83 93 Room Air 11/23/16 15:12 69 92 11/23/16 12:00 Room Air 11/23/16 11:43 36.3 18 116/83 92 Room Air 11/23/16 09:30 Room Air 11/23/16 07:49 36.6 69 19 115/72 96 Room Air 11/23/16 04:16 36.4 66 18 104/65 94 Room Air 11/23/16 04:00 Room Air 11/23/16 00:00 Room Air 11/22/16 23:48 36.6 72 18 131/73 94 Room Air 11/22/16 20:00 Room Air 11/22/16 19:37 36.8 91 19 111/89 95 Room Air Last 24 Hours Test 11/22/16 20:19 11/23/16 06:14 11/23/16 06:32 11/23/16 11:21 Bedside Glucose 212 mg/dl 165 mg/dl 266 mg/dl White Blood Count 6.62 K/uL Red Blood Count 4.85 M/uL Hemoglobin 14.8 g/dL Hematocrit 44.7 % Mean Corpuscular Volume 92.2 fL Mean Corpuscular Hemoglobin 30.5 pg Mean Corpuscular Hemoglobin Concent 33.1 g/dl Platelet Count 175 K/uL Mean Platelet Volume 11.0 fL Neutrophils (%) (Auto) 36.2 % Lymphocytes (%) (Auto) 39.3 % Monocytes (%) (Auto) 13.1 % Eosinophils (%) (Auto) 8.8 % Basophils (%) (Auto) 2.0 % Neutrophils # (Auto) 2.40 K/uL Lymphocytes # (Auto) 2.60 K/uL Monocytes # (Auto) 0.87 K/uL Eosinophils # (Auto) 0.58 K/uL Basophils # (Auto) 0.13 K/uL RDW Standard Deviation 43.7 fL RDW Coefficient of Variation 13.1 % Immature Granulocyte % (Auto) 0.6 % Immature Granulocyte # (Auto) 0.04 K/uL Prothrombin Time 17.0 SECONDS Prothromb Time International Ratio 1.6 Sodium Level 137 mmol/L Potassium Level 3.8 mmol/L Chloride Level 101 mmol/L Carbon Dioxide Level 33 mmol/L Anion Gap 3.0 mmol/L Blood Urea Nitrogen 16 mg/dl Creatinine 0.90 mg/dl Est Creatinine Clear Calc Drug Dose 115.9 ml/min Estimated GFR () 100.6 Estimated GFR (Non- 86.8 BUN/Creatinine Ratio 17.4 Random Glucose 176 mg/dl Calcium Level 9.2 mg/dl Test 11/23/16 16:09 Bedside Glucose 115 mg/dl Imaging: MRI brain with and without- No acute intracranial findings No evidence of acute or subacute infarction No evidence of intracranial mass Scattered foci of increased T2 signal within the white matter likely on a small vessel basis MRA brain- Unremarkable MR angiography of the [place]. Exam: Gen: alert NAD lungs CTA CV RRR sitting bed side eating supper Current Inpatient Medications Medications (Trade) Dose Ordered Sig/Eder Route Start Time Stop Time Status Last Admin Dose Admin Acetaminophen (Tylenol Tab) 650 mg Q4H PRN PO 11/21/16 18:30 12/21/16 18:29 11/22/16 20:14 650 MG Ondansetron HCl (Zofran Inj) 4 mg Q6H PRN IV 11/21/16 18:30 12/21/16 18:29 Insulin Aspart (novoLOG ASPART) SLIDING SCALE If C... ACHS SC 11/21/16 21:00 12/21/16 20:59 11/23/16 17:39 4 UNITS Glucose (Glucose 40% Gel) 15-30 GRAMS 15 GRAMS... UD PRN PO 11/21/16 19:30 12/21/16 19:29 Glucose (Glucose Chew Tab) 4-8 Tablets 4 Tabl... UD PRN PO 11/21/16 19:30 12/21/16 19:29 Dextrose (Dextrose 50% 50ML Syringe) 25-50ML OF 50% DW IV FOR... UD PRN IV 11/21/16 19:30 12/21/16 19:29 Glucagon (Glucagon Inj) 1 mg UD PRN SQ 11/21/16 19:30 12/21/16 19:29 Miscellaneous Information (Pharmacist Discharge Med Rec Consult) 1 ea UD PRN N/A 11/21/16 19:30 12/21/16 19:29 Aspirin (Aspirin Chew) 162 mg DAILY PO 11/22/16 09:00 12/22/16 08:59 11/23/16 10:07 162 MG Diphenhydramine HCl (Benadryl Cap) 25 mg HS PRN PO 11/21/16 20:00 12/21/16 19:59 Duloxetine HCl (Cymbalta Cap) 30 mg DAILY PO 11/22/16 09:00 12/22/16 08:59 11/23/16 10:07 30 MG Magnesium Oxide (Mag-Ox Tab) 400 mg QAM PO 11/22/16 09:00 12/22/16 08:59 11/23/16 10:07 400 MG Metoprolol Succinate (Toprol Xl Tab) 100 mg DAILY PO 11/22/16 09:00 12/22/16 08:59 11/23/16 10:08 100 MG Nitroglycerin (Nitrostat Tab) 0.4 mg UD PRN UT 11/21/16 19:45 12/21/16 19:44 Pantoprazole Sodium (Protonix Tab) 40 mg QAM PO 11/22/16 09:00 12/22/16 08:59 11/23/16 10:07 40 MG Tapentadol (Nucynta Tab) 50 mg Q8 PRN PO 11/21/16 19:45 12/05/16 19:44 11/23/16 12:44 50 MG Warfarin Sodium (Coumadin Tab) 3 mg Tu@1600 PO 11/28/16 16:00 12/28/16 15:59 Warfarin Sodium (Coumadin Tab) 6 mg SuMoWeThFrSa@1600 PO 11/22/16 16:00 12/22/16 15:59 11/23/16 17:05 6 MG Albuterol (Ventolin Hfa Inhaler) 2 puffs Q6H PRN INH 11/21/16 20:00 12/21/16 19:59 Insulin Detemir (Levemir Flexpen/ FlexTouch) 15 unit PM SC 11/21/16 21:00 12/21/16 20:59 11/22/16 20:21 15 UNIT Polyethylene (Miralax Powder Packet) 17 gm QAM PO 11/22/16 09:00 12/22/16 08:59 11/23/16 10:08 17 GM Tapentadol (Nucynta Er Tab) 100 mg Q12 PO 11/21/16 21:00 12/21/16 20:59 11/23/16 10:20 100 MG Pravastatin Sodium (Pravachol Tab) 80 mg HS PO 11/21/16 21:00 12/21/16 20:59 11/22/16 20:15 80 MG Impression 71 year old with stroke like symptoms Plan 1. optimize coumadin therapy- not currently fully coagulated 2. orthostatic checked and were positive- may need cardiology input for treatment adjustments 3. PT/OT/speech for discharge needs 4. MRI brain with and without to define whether recurrent strokes/vs TIA- no stroke findings some microvascular disease 5. EEG -possible seizure activity- normal study 6. this is likely exacerbation of his baseline right sided weakness that increased when he is compromised by infection and surgery. Risk factors for microvascular disease need to optimize LDL <70, DM management, HTN. I have discussed above patient with Dr Beba Gutierrez, neurology Pt with recurrent (6x/yr) r facial weakness and r hp lasting up to 10d. Neg MRI for acute abnl and eeg nml. Suspect pt has prev had a tiny small vessel stroke and residual sx are exacerbate when something infectious,toxic metabolic is going on. Will sign off, CURTIS Gutierrez MD
[2016-11-23] MEDS: PRAVASTATIN SOD 40 MG TAB PO SCH (20:57)
[2016-11-23] MEDS: INSULIN DETEMIR FLEXPEN/FLEX TOUCH 100 UNITS/ML 3ML SC SCH (21:03)
[2016-11-24] VITALS (7 sets, daily range): BP systolic 111–114; BP diastolic 71–74; PULSE 69–71; TEMP 36.5; O2SAT 94–95
[2016-11-24] MEDS: ACETAMINOPHEN 325 MG TAB PO PRN (02:30)
[2016-11-24 05:52] LABS: BASO % 2.4 %; BASO ABS # 0.18 K/uL (0-0.2); COMPLETE YES; EOS % 7.5 %; HEMATOCRIT 44.6 % (42-52); IG% 0.3 %; LYMPH % 41.9 %; MEAN CORPUSCULAR HEMOGLOBIN 30.5 pg (25-34); MEAN CORPUSCULAR HGB CONC 33.2 g/dl (32-36); MONO % 11.9 %; PLATELET COUNT 185 K/uL (130-400); RED BLOOD COUNT 4.85 M/uL (4.7-6.1); WHITE BLOOD COUNT 7.64 K/uL (4.8-10.8)
[2016-11-24 06:33] LABS: BUN/CREATININE RATIO 16.9 (10-20); CALCIUM 9.2 mg/dl (8.5-10.1); CREATININE 0.96 mg/dl (0.60-1.40); POTASSIUM 4.2 mmol/L (3.5-5.1)
--- NOTE | 2016-11-24 07:44 | ELECTROENCEPHALOGRAPH REPORT ---
FOR: Beba Duncan PA-C. CLINICAL DIAGNOSIS: Recurrent stereotypic episodes of possible seizure type. EEG DIAGNOSIS: Essentially normal during wakefulness. DESCRIPTION OF TRACING: EEG was done as a bedside recording with simultaneous video analysis of patient movement and behavior and is of excellent technical quality with few or no muscle or movement artifacts recorded either on EEG or on video. Photic stimulation was performed. Hyperventilation was not. Drowsiness and light sleep were not seen. Under these conditions, there is evidence for normal appearing background rhythm in the alpha range of up to 10 Hz of maximum frequency and of up to 30 microvolts of maximum amplitude. This is maximum in posterior head regions and bilaterally symmetrical. Polymorphic mid frequency theta activity is seen over all head regions without clear focal or regional predominance. Anterior head region maximum bilaterally symmetrical low-voltage fast activity in the beta range is present. Photic stimulation provoked some minimal driving response without a photomyogenic or photoparoxysmal component. At no time during the waking tracing is there evidence for potentially epileptogenic activity in the form of polyspike or spike wave bursts, focal sharp waves or focal spikes. INTERPRETATION: This EEG is essentially normal during wakefulness without evidence for focal or generalized encephalopathy and without evidence for potentially epileptogenic activity.
[2016-11-24] MEDS: DULOXETINE (CYMBALTA) 30 MG CAP PO SCH (07:56)
[2016-11-24] MEDS: PANTOprazole SOD 40 MG TAB PO SCH (07:56)
[2016-11-24] MEDS: ASPIRIN 81 MG CHEW PO SCH (07:56)
[2016-11-24] MEDS: MAGNESIUM OXIDE 400 MG TAB PO SCH (07:57)
[2016-11-24] MEDS: METOPROLOL SUCC 50MG EXT REL TAB PO SCH (07:57)
[2016-11-24] MEDS: POLYETHYLENE (MIRALAX) 17 GM PACK PO SCH (07:58)
[2016-11-24] MEDS: INSULIN ASPART 100 UNITS/ML 3 ML PEN SC SCH ×2 (08:05→11:00)
[2016-11-24] MEDS: TAPENTADOL ER 50 MG TABCR PO SCH (08:14)
[2016-11-24] MEDS ORDERED: ALBUT/IPRATROP 3MG/0.5MG NEB 3 ML VIAL INH PRN (09:45)
[2016-11-24 10:55] LABS: INR 1.8 (0.9-1.1); PROTHROMBIN TIME (PATIENT) 19.3 SECONDS (9.0-12.0)
[2016-11-24] MEDS ORDERED: ALBUT/IPRATROP 3MG/0.5MG NEB 3 ML VIAL INH SCH (12:00)
--- NOTE | 2016-11-24 12:43 | Progress Note ---
Medicine Progress Note Date & Time of Visit: November 24, 2016 at 12:37. Subjective Pt was seen and examined Sitting in bed very comfortable with no distress Pt said that he did not have a good night last night because he had an headache he said that he feels a little tired this morning denies any chest pain, palpitation and dizziness Objective Last 8 Hrs Date Time Temp Pulse Resp B/P Pulse Ox O2 Delivery O2 Flow Rate FiO2 11/24/16 11:38 95 Room Air 11/24/16 11:10 36.5 69 18 95 Room Air 11/24/16 08:00 95 Room Air 11/24/16 07:43 36.5 69 20 114/71 94 Room Air Physical Exam: General- No acute distress, Head- atraumatic Eyes- PERRL, EOMI ENT- oropharynx clear Neck- supple, no JVD Lungs- No wheezing Heart- no murmur Abdomen- normal bowel sounds, soft Extremities- no calf tenderness Neuro- alert, oriented x 3; PERRL, EOMI; facial symmetry no dysarthria Skin- warm & dry Laboratory Results: Last 24 Hours Test 11/23/16 16:09 11/23/16 20:05 11/24/16 05:33 11/24/16 06:52 Bedside Glucose 115 mg/dl 180 mg/dl 185 mg/dl White Blood Count 7.64 K/uL Red Blood Count 4.85 M/uL Hemoglobin 14.8 g/dL Hematocrit 44.6 % Mean Corpuscular Volume 92.0 fL Mean Corpuscular Hemoglobin 30.5 pg Mean Corpuscular Hemoglobin Concent 33.2 g/dl Platelet Count 185 K/uL Mean Platelet Volume 11.0 fL Neutrophils (%) (Auto) 36.0 % Lymphocytes (%) (Auto) 41.9 % Monocytes (%) (Auto) 11.9 % Eosinophils (%) (Auto) 7.5 % Basophils (%) (Auto) 2.4 % Neutrophils # (Auto) 2.76 K/uL Lymphocytes # (Auto) 3.20 K/uL Monocytes # (Auto) 0.91 K/uL Eosinophils # (Auto) 0.57 K/uL Basophils # (Auto) 0.18 K/uL RDW Standard Deviation 44.1 fL RDW Coefficient of Variation 13.1 % Immature Granulocyte % (Auto) 0.3 % Immature Granulocyte # (Auto) 0.02 K/uL Sodium Level 138 mmol/L Potassium Level 4.2 mmol/L Chloride Level 102 mmol/L Carbon Dioxide Level 30 mmol/L Anion Gap 6.0 mmol/L Blood Urea Nitrogen 16 mg/dl Creatinine 0.96 mg/dl Est Creatinine Clear Calc Drug Dose 108.2 ml/min Estimated GFR () 93.1 Estimated GFR (Non- 80.3 BUN/Creatinine Ratio 16.9 Random Glucose 183 mg/dl Calcium Level 9.2 mg/dl Test 11/24/16 10:20 11/24/16 10:55 Prothrombin Time 19.3 SECONDS Prothromb Time International Ratio 1.8 Bedside Glucose 159 mg/dl Assessment & Plan STROKE LIKE SYMPTOMS Possible Related to TIA Need to R/O rule CVA Risk factors Afib history of TIA, DM type 2 CT head- negative for any acute intracranial abnormality Carotid ultrasound done as outpatient on 11/20/16- bilateral vertebral arteries not visualized, these may be preocclusive or occluded. Further evaluation recommended. Bilateral carotid plaque disease with less than 50% internal carotid artery stenosis. Repeat CT head this morning shown no finding MRA and MRI of the head showed no acute finding EEG normal Continue aspirin 162 mg daily, Coumadin, statin Continue PT/OT Neurology on board "suspect pt has prev had a tiny small vessel stroke and residual sx are exacerbate when something infectious,toxic metabolic is going on " Clinically stable Stable from neuro standpoint to discharge PAROXYSMAL ATRIAL FIBRILLATION Currently in NSR Continue Toprol INR therapeutic at 1.8 Continue Coumadin Follow up with coag clinic to monitor INR DM TYPE 2 Recent Hba1c 9.1 (11/22/16) Continue long acting insulin Insulin sliding scale coverage Monitor BSG AC HS RECENT RIGHT GREAT TOE OSTEOMYELITIS S/p right great toe amputation 11/10/[address] Ortega Discharged on Vancomycin- was supposed to take for 7 days postop as per ID but was stopped on 11/15 due to hives reaction; PICC line removed ID Consulted recommended no abx for now Follow appt next week with Dr. 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 There is mild concentric left ventricular hypertrophy. There is mild global hypokinesis of the left ventricle. Ejection Fraction = 45-50%. The left atrium is mildly dilated. There is a bioprosthetic aortic valve. The gradient is normal for this prosthetic aortic valve. Bioprosthetic leaflets are thin and move normally. There is no aortic valvular vegetation. There is a bioprosthetic mitral valve. Bioprosthesis leaflets are thin and move normally. There are no vegetations on this prosthetic mitral valve. There is no mitral valve stenosis. There is no mitral regurgitation noted. CHRONIC NECK PAIN Continue Nucynta DEPRESSION Continue Cymbalta DVT PROPHYLAXIS On Coumadin SCDs CODE STATUS FULL CODE DISPOSITION Will discharge to [facility] today for rehab Follows with Dr. Martha Cano for primary care Consultants: Neuro ID Speech therapy PT/OT Current Inpatient Medications: Current Inpatient Medications Medications (Trade) Dose Ordered Sig/Eder Route Start Time Stop Time Status Last Admin Dose Admin Acetaminophen (Tylenol Tab) 650 mg Q4H PRN PO 11/21/16 18:30 12/21/16 18:29 11/24/16 02:30 650 MG Ondansetron HCl (Zofran Inj) 4 mg Q6H PRN IV 11/21/16 18:30 12/21/16 18:29 Insulin Aspart (novoLOG ASPART) SLIDING SCALE If C... ACHS SC 11/21/16 21:00 12/21/16 20:59 11/24/16 08:05 6 UNITS Glucose (Glucose 40% Gel) 15-30 GRAMS 15 GRAMS... UD PRN PO 11/21/16 19:30 12/21/16 19:29 Glucose (Glucose Chew Tab) 4-8 Tablets 4 Tabl... UD PRN PO 11/21/16 19:30 12/21/16 19:29 Dextrose (Dextrose 50% 50ML Syringe) 25-50ML OF 50% DW IV FOR... UD PRN IV 11/21/16 19:30 12/21/16 19:29 Glucagon (Glucagon Inj) 1 mg UD PRN SQ 11/21/16 19:30 12/21/16 19:29 Miscellaneous Information (Pharmacist Discharge Med Rec Consult) 1 ea UD PRN N/A 11/21/16 19:30 12/21/16 19:29 Aspirin (Aspirin Chew) 162 mg DAILY PO 11/22/16 09:00 12/22/16 08:59 11/24/16 07:56 162 MG Diphenhydramine HCl (Benadryl Cap) 25 mg HS PRN PO 11/21/16 20:00 12/21/16 19:59 Duloxetine HCl (Cymbalta Cap) 30 mg DAILY PO 11/22/16 09:00 12/22/16 08:59 11/24/16 07:56 30 MG Magnesium Oxide (Mag-Ox Tab) 400 mg QAM PO 11/22/16 09:00 12/22/16 08:59 11/24/16 07:57 400 MG Metoprolol Succinate (Toprol Xl Tab) 100 mg DAILY PO 11/22/16 09:00 12/22/16 08:59 11/24/16 07:57 100 MG Nitroglycerin (Nitrostat Tab) 0.4 mg UD PRN UT 11/21/16 19:45 12/21/16 19:44 Pantoprazole Sodium (Protonix Tab) 40 mg QAM PO 11/22/16 09:00 12/22/16 08:59 11/24/16 07:56 40 MG Tapentadol (Nucynta Tab) 50 mg Q8 PRN PO 11/21/16 19:45 12/05/16 19:44 11/23/16 12:44 50 MG Warfarin Sodium (Coumadin Tab) 3 mg Tu@1600 PO 11/28/16 16:00 12/28/16 15:59 Warfarin Sodium (Coumadin Tab) 6 mg SuMoWeThFrSa@1600 PO 11/22/16 16:00 12/22/16 15:59 11/23/16 17:05 6 MG Albuterol (Ventolin Hfa Inhaler) 2 puffs Q6H PRN INH 11/21/16 20:00 12/21/16 19:59 Insulin Detemir (Levemir Flexpen/ FlexTouch) 15 unit PM SC 11/21/16 21:00 12/21/16 20:59 11/23/16 21:03 15 UNIT Polyethylene (Miralax Powder Packet) 17 gm QAM PO 11/22/16 09:00 12/22/16 08:59 11/24/16 07:58 17 GM Tapentadol (Nucynta Er Tab) 100 mg Q12 PO 11/21/16 21:00 12/21/16 20:59 11/24/16 08:14 100 MG Pravastatin Sodium (Pravachol Tab) 80 mg HS PO 11/21/16 21:00 12/21/16 20:59 11/23/16 20:57 80 MG Albuterol/ Ipratropium (Duoneb) 3 ml QIDR INH 11/24/16 12:00 12/24/16 11:59 Albuterol/ Ipratropium (Duoneb) 3 ml Q2R PRN INH 11/24/16 09:45 12/24/16 09:44
--- NOTE | 2016-11-24 12:54 | Discharge Instructions ---
Discharge Instructions Date of Service November 24, 2016. Admission Reason for Admission: Stroke-Like Symptoms Discharge Discharge Diagnosis / Problem: STROKE LIKE SYMPTOMS, Paroxysmal Afib, DM TYPE 2 Discharge Goals Goal(s): Decrease discomfort, Improve function, Improve disease control Activity Recommendations Activity Limitations: resume your previous activity (as tolerated) . Instructions / Follow-Up Instructions / Follow-Up Please follow up with your primary care provider once discharge from rehab Follow up with Dr. Ortega next week for sutures removal Continue follow up with wound care clinic Follow up with Coumadin clinic to monitor your INR Most recent INR 1.8 (11/24/16) Continue PT/OT Fall precaution Current Hospital Diet Patient's current hospital diet: Diabetes Type 2 Diet, AHA Diet (Heart Healthy) Discharge Diet Recommended Diet: AHA Diet (Heart Healthy), Diabetes Type 2 Diet Pending Studies Studies pending at discharge: no Laboratory Results Hemoglobin A1c Test 11/21/16 18:03 Range/Units Estimated Average Glucose 214 mg/dl Hemoglobin A1c 9.1 H 4.5-5.6 % Lipid Panel Test 11/22/16 07:55 Range/Units Triglycerides Level 349 H 0-150 mg/dl Cholesterol Level 159 0-200 mg/dl HDL Cholesterol 29 mg/dl Cholesterol/HDL Ratio 5.5 LDL Cholesterol, Calculated 60 mg/dl Medical Emergencies . Who to Call and When: Medical Emergencies: If at any time you feel your situation is an emergency, please call 911 immediately. . Non-Emergent Contact Non-Emergency issues call your: Primary Care Provider Call Non-Emergent contact if: you have any medication questions . . "Provider Documentation" section prepared by Zenia Hdz. . VTE Core Measure Inpt VTE Proph given/why not?: Warfarin (Coumadin)
--- NOTE | 2016-11-26 18:57 | Discharge Summary ---
Discharge Summary Date of Service November 26, 2016. Discharge Summary Admission Date: November 21, 2016 at 18:16 Discharge Date: November 24, 2016 Discharge Disposition: Rehab Principal Diagnosis: STROKE LIKE SYMPTOMS Secondary Diagnoses/Problems: PAROXYSMAL ATRIAL FIBRILLATION RECENT RIGHT GREAT TOE OSTEOMYELITIS CAD DM TYPE 2 HISTORY OF ENDOCARDITIS CHRONIC NECK PAIN DEPRESSION Procedures: MR ANGIOGRAPHY OF THE [place] NO CONTRAST CLINICAL HISTORY: Right-sided numbness and gait instability. Possible intracranial stenosis. COMPARISON STUDY: None. A 3-D [id number] MR angiographic sequence of the [place] was performed. Both the source and projection images were reviewed. There is no evidence of major intracranial branch occlusion. There is no evidence of intracranial stenosis. There are no lesions suspicious for aneurysm. There is a dominant left vertebral artery. IMPRESSION: Unremarkable MR angiography of the [place]. Electronically signed by: David Mantilla M.D. 11/23/2016 9:13 AM [~ rep ct add3]] MRI OF THE BRAIN WITHOUT AND WITH IV CONTRAST CLINICAL HISTORY: stroke like symptoms RIGHT-SIDED LIP NUMBNESS AND GAIT INSTABILITY. COMPARISON STUDY: Noncontrast head CT dated 11/22/2016 TECHNIQUE: MRI of the brain was performed from the vertex to the skull base utilizing various T1 and T2 weighted sequences. Following the IV administration of 13 mL of Gadavist contrast, additional enhanced images were obtained. FINDINGS: Sagittal T1, axial diffusion, proton density and T2 weighted axial, coronal FLAIR, and pre and post axial T1-weighted images were acquired. These were supplemented with post gadolinium coronal T1 weighted images. No intra or extra-axial mass lesions are visualized. Axial diffusion-weighted images reveal no evidence of acute or subacute infarction. There is no evidence of ventricular dilatation. Proton density T2-weighted and FLAIR images reveal scattered foci of increased T2 signal within the white matter, likely on a small vessel basis. There are no abnormal flow voids. There is no evidence of pathologic enhancement. IMPRESSION: 1. No acute intracranial findings 2. No evidence of acute or subacute infarction 3. No evidence of intracranial mass 4. Scattered foci of increased T2 signal within the white matter likely on a small vessel basis Electronically signed by: David Mantilla M.D. 11/23/2016 9:57 AM Dictated Date/Time: 11/23/2016 9:[address] CT DOSE: 537.48 mGy.cm HISTORY: Altered mental status. Stroke TECHNIQUE: Multiaxial CT images of the head were performed without the use of intravenous contrast. Automated exposure control was utilized for this study. Comparison: Head CT 11/21/2016. Findings: The paranasal sinuses and mastoid air cells are clear. The calvarium and skull base are intact. There is no mass, hematoma, midline shift, acute infarct. White matter hypodensity is nonspecific but suggestive of microvascular ischemic change. The ventricles and sulci demonstrate mild age-related involutional changes. Prominent anterior extra-axial spaces is likely due to atrophy. Impression: No significant change compared to the prior study. No acute intracranial abnormality. Electronically signed by: Ralph Robles M.D. 11/22/2016 7:12 AM CHEST ONE VIEW PORTABLE CLINICAL HISTORY: Stroke COMPARISON STUDY: 11/06/2016 FINDINGS: The heart is mildly enlarged. There are postsurgical changes of a midline sternotomy. The right-sided PICC catheter has been removed. There is no failure. There is no focal pulmonary consolidation. There are no pleural effusions.[ IMPRESSION: Mild cardiomegaly. No acute findings. Electronically signed by: David Mantilla M.D. 11/21/2016 5:10 PM Dictated Date/Time: 11/21/2016 5:10 PM Consultations: Neuro ID Speech therapy PT/OT Medication Reconciliation Continued Medications: Albuterol Sulfate (Proair Respiclick) 108 Mcg/Act Aer 2 PUFFS INH Q6 PRN for SOB/Wheezing Aspirin (Aspirin Chewable) 81 Mg Chew 162 MG PO DAILY Diphenhydramine Hcl (Benadryl Allergy) 25 Mg Cap 25 MG PO HS PRN for Itching, CAP WATCH FOR SEDATION AND DIFFICULTY VOIDING Duloxetine HCl (Cymbalta) 30 Mg Cap 30 MG PO DAILY, 2 Refills Furosemide (Lasix) 20 Mg Tab 20 MG PO DAILY PRN for swelling, TAB Insulin Detemir (Levemir) 100 Units/Ml Inj 15 UNITS SQ QPM Levalbuterol Hcl (Levalbuterol) 1.25 Mg/0.5 Ml Neb 1.25 MG NEB Q6 PRN for SOB/Wheezing Magnesium Oxide (Mag-Ox) 400 Mg Tab 400 MG PO QAM, TAB Metoprolol Succ (Toprol Xl) (Toprol-Xl) 50 Mg Tabcr 100 MG PO DAILY, #30 TAB Nitroglycerin (Nitrostat) 0.4 Mg Tab 0.4 MG UT UD PRN for Chest Pain, BTL NEEDED FOR CHEST PAIN : ONE TABLET UNDER THE TONGUE EVERY 5 MINUTES UP TO 3 DOSES. Pantoprazole (Protonix) 40 Mg Tab 40 MG PO QAM, TAB Polyethylene Glycol 3350 (Miralax) 1 Pow 17 GM PO QAM, GM Potassium Chloride (K-Tabs) 10 Meq Tab 20 MEQ PO DAILY PRN for with Lasix Pravastatin Sodium (Pravastatin Sodium) 80 Mg Tab 80 MG PO HS, TAB Tapentadol Hcl (Nucynta Er) 100 Mg Tab 100 MG PO BID, TAB Tapentadol Hcl (Nucynta) 50 Mg Tab 50 MG PO Q8 PRN for Pain, TAB Warfarin Sodium (Coumadin) 6 Mg Tab 6 MG PO 6XWK, TAB TAKE 6MG EVERY SUNDAY/SUNDAY/SUNDAY/SUNDAY/SUNDAY/SUNDAY. Warfarin Sodium (Coumadin) 3 Mg Tab 3 MG PO WK, TAB TAKE 3MG EVERY SUNDAY Admission Information HPI (per Admitting provider): This is a 71 year old male with PMH of PAF, history of TIA, DM type 2, CAD, hx of endocarditis, and other problems listed below who presents to the ED from [facility] for stroke like symptoms. Patient was recently admitted at [facility] from November 06-November 13 for right great toe osteomyelitis and underwent amputation of right great toe 11/10/[address] Ortega and SOB attributed to viral URI vs. bronchitis. Patient was seen by ID during last admission and discharged on IV vancomycin for 7 days postoperatively. Pt was initially discharged to home w/ services then was placed in [facility] on 11/15/16. Pt states vancomycin was stopped on 11/15 due to hives reaction. PICC line was removed and he is no longer on abx. Pt was seen by the ortho PA-C in clinic today and was told his amputation site looked good. He has an appointment with Dr. Malhotra for ID f/ u tomorrow. Pt states current symptoms started yesterday during PT. He describes RLE weakness and numbness, "fat lip", drooling, intermittent slurred speech, head feeling "big", right eye blurry vision. Symptoms are persistent today. Pt states he had multiple TIA's in the past with right sided weakness. He has seen neurology Dr. Howe in the past. Patient reports recent "twinges" of chest pain, however not experiencing chest pain today. Pain occurs the right side lasting 2 seconds- states it does not feel like his prior angina. He reports chronic E[place] but no change. Pt denies headache, swallowing difficulty, abdominal pain, vomiting, diarrhea, urinary changes. Physical Exam (per Admitting): General Appearance: WD/WN, no apparent distress, + pertinent finding ( pleasant alert 71 year old male, not in distress) Head: normocephalic, atraumatic Eyes: normal inspection, PERRL, EOMI ENT: hearing grossly normal, pharynx normal Neck: supple, trachea midline Respiratory/Chest: lungs clear, normal breath sounds, no respiratory distress Cardiovascular: regular rate, rhythm, no murmur Abdomen/GI: normal bowel sounds, non tender, soft Extremities/Musculoskelatal: no calf tenderness, no pedal edema, + pertinent finding (right foot dressing in place s/p right great toe amputation) Neurologic/Psych: alert, normal mood/affect, oriented x 3, + pertinent finding (slight right lip droop. remainder of cranial nerve II-XII exam normal. right lower extremity strength 4/5, all other extremities 5/5. sensation to light touch intact on the face and all extremities. visual koch intact to confrontation. ) Skin: warm/dry, + pertinent finding (chronic round patches on extremities) Hospital Course STROKE LIKE SYMPTOMS Possible Related to TIA Need to R/O rule CVA Risk factors Afib history of TIA, DM type 2 CT head- negative for any acute intracranial abnormality Carotid ultrasound done as outpatient on 11/20/16- bilateral vertebral arteries not visualized, these may be preocclusive or occluded. Further evaluation recommended. Bilateral carotid plaque disease with less than 50% internal carotid artery stenosis. Repeat CT head this morning shown no finding MRA and MRI of the head showed no acute finding EEG normal Continue aspirin 162 mg daily, Coumadin, statin Continue PT/OT Neurology on board "suspect pt has prev had a tiny small vessel stroke and residual sx are exacerbate when something infectious,toxic metabolic is going on " Clinically stable Stable from neuro standpoint to discharge PAROXYSMAL ATRIAL FIBRILLATION Currently in NSR Continue Toprol INR therapeutic at 1.8 Continue Coumadin Follow up with coag clinic to monitor INR DM TYPE 2 Recent Hba1c 9.1 (11/22/16) Continue long acting insulin Insulin sliding scale coverage Monitor BSG AC HS RECENT RIGHT GREAT TOE OSTEOMYELITIS S/p right great toe amputation 11/10/[address] Ortega Discharged on Vancomycin- was supposed to take for 7 days postop as per ID but was stopped on 11/15 due to hives reaction; PICC line removed ID Consulted recommended no abx for now Follow appt next week with Dr. 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 There is mild concentric left ventricular hypertrophy. There is mild global hypokinesis of the left ventricle. Ejection Fraction = 45-50%. The left atrium is mildly dilated. There is a bioprosthetic aortic valve. The gradient is normal for this prosthetic aortic valve. Bioprosthetic leaflets are thin and move normally. There is no aortic valvular vegetation. There is a bioprosthetic mitral valve. Bioprosthesis leaflets are thin and move normally. There are no vegetations on this prosthetic mitral valve. There is no mitral valve stenosis. There is no mitral regurgitation noted. CHRONIC NECK PAIN Continue Nucynta DEPRESSION Continue Cymbalta DVT PROPHYLAXIS On Coumadin SCDs CODE STATUS FULL CODE DISPOSITION Will discharge to [facility] today for rehab Follows with Dr. Martha Cano for primary care Total time spent on discharge = 35 minutes This includes examination of the patient, discharge planning, medication reconciliation, and communication with other providers. Discharge Instructions Discharge Instructions Date of Service November 24, 2016. Admission Reason for Admission: Stroke-Like Symptoms Discharge Discharge Diagnosis / Problem: STROKE LIKE SYMPTOMS, Paroxysmal Afib, DM TYPE 2 Discharge Goals Goal(s): Decrease discomfort, Improve function, Improve disease control Activity Recommendations Activity Limitations: resume your previous activity (as tolerated) . Instructions / Follow-Up Instructions / Follow-Up Please follow up with your primary care provider once discharge from rehab Follow up with Dr. Ortega next week for sutures removal Continue follow up with wound care clinic Follow up with Coumadin clinic to monitor your INR Most recent INR 1.8 (11/24/16) Continue PT/OT Fall precaution Current Hospital Diet Patient's current hospital diet: Diabetes Type 2 Diet, AHA Diet (Heart Healthy) Discharge Diet Recommended Diet: AHA Diet (Heart Healthy), Diabetes Type 2 Diet Pending Studies Studies pending at discharge: no Laboratory Results Hemoglobin A1c Test 11/21/16 18:03 Range/Units Estimated Average Glucose 214 mg/dl Hemoglobin A1c 9.1 H 4.5-5.6 % Lipid Panel Test 11/22/16 07:55 Range/Units Triglycerides Level 349 H 0-150 mg/dl Cholesterol Level 159 0-200 mg/dl HDL Cholesterol 29 mg/dl Cholesterol/HDL Ratio 5.5 LDL Cholesterol, Calculated 60 mg/dl Medical Emergencies . Who to Call and When: Medical Emergencies: If at any time you feel your situation is an emergency, please call 911 immediately. . Non-Emergent Contact Non-Emergency issues call your: Primary Care Provider Call Non-Emergent contact if: you have any medication questions . . "Provider Documentation" section prepared by Zenia Hdz. . VTE Core Measure Inpt VTE Proph given/why not?: Warfarin (Coumadin) Additional Copies To Buffy Whatley Manisha N., M.D.
--- NOTE | 2016-11-27 11:58 | EDITING REQUIRED CODING QUERY ---
CODING QUERY To promote full compliance with coding requirements relating to patient care, provider participation is requested in all cases of banana expert uncertainty. Please assist us with the question(s) below: Coding Question(s): Patient with prior history of stroke is admitted with facial droop and right sided weakness. Discharge Summary states `stroke-like' symptoms. Please check below the diagnosis you were treating . Thanks for your help! Nathen Encarnacion [facility] Physician's Response(s): Acute CVA, Present on Admission TIA , Present on Admission Cannot Clinically Determine Other, Please document: Principal Diagnosis: "_that condition established after study, to be chiefly responsible for occasioning the admission of the patient to the hospital for care." Co-Existing Principal Diagnosis: "_when two or more diagnoses equally meet the criteria for principal diagnosis as determined by the circumstances of admission, diagnostic work up, and/or therapy provided, and the Alphabetic Index, Tabular List, or another coding guideline does not provide sequencing direction, any one of the diagnoses may be sequenced first." "When the physician has documented what appears to be a current diagnosis in the body of the record, but has not included the diagnosis in the final diagnostic statement, the physician should be asked whether the diagnosis should be added." (Source Coding [facility] 2 QTR90. p3-4)
[2016-11-28] MEDS ORDERED: WARFARIN SOD 3 MG TAB PO SCH (16:00)
--- NOTE | 2017-01-09 08:42 | Progress Note ---
Progress Note Date of Service Jan 09, 2017. Progress Note Addendum Cannot clinically determine.
== END 2016-11-24 15:13 | DRG 57 ==
LOC: ENRESERVTM → ENRESERVDT → EDBD 16:11 → C.EDB 16:15 → C.2T 18:16
PROVIDERS: ADMIT Family Medicine; ATTEND Internal Medicine
DX: G81.94 Hemiplegia, unspecified affecting left nondominant side (principal); R29.810 Facial weakness; R47.81 Slurred speech; J44.9 Chronic obstructive pulmonary disease, unspecified; I71.4 Abdominal aortic aneurysm, without rupture; Z79.01 Long term (current) use of anticoagulants; E11.9 Type 2 diabetes mellitus without complications; I10 Essential (primary) hypertension; I25.2 Old myocardial infarction; Z95.1 Presence of aortocoronary bypass graft; I48.0 Paroxysmal atrial fibrillation; Z82.49 Family history of ischemic heart disease and other diseases of the circulatory system; R07.9 Chest pain, unspecified; I25.10 Atherosclerotic heart disease of native coronary artery without angina pectoris; F32.9 Major depressive disorder, single episode, unspecified; E78.5 Hyperlipidemia, unspecified; Z88.0 Allergy status to penicillin; Z95.0 Presence of cardiac pacemaker; M54.2 Cervicalgia; Z86.73 Personal history of transient ischemic attack (TIA), and cerebral infarction without residual deficits; Z87.891 Personal history of nicotine dependence